=== PATIENT | female | born 1945 ===

== ENCOUNTER 2018-10-15 09:57 | Inpatient (IN) | payer OTHER ==
--- NOTE | 2018-10-15 13:10 | R.PREADM ---
SCREENING DATE AND TIME 10/15/2018 10:05 (CDT) ANTICIPATED REHAB ADMISSION DATE 10/17/2018 REFERRING FACILITY [facility] REFERRAL DATE AND TIME 10/15/2018 10:07 (CDT) ACUTE ADMIT DATE 10/12/2018 Previous Rehabilitation(s): No. 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 Abram Crews REHAB FACILITY [facility] CLINICAL LIAISON Sara Sharif PHYSICIAN REVIEWER Dr. Edmar Garrett M.D. [facility] [id number] [id number] NAME KELSEY GORDILLO ADDRESS [address] PHONE [facility] [id number] DATE OF 1945 AGE 72 SSN# [id number] GENDER female MARITAL STATUS RACE white ADMIT FROM 02 - [facility] PRE-HOSPITAL LIVING SETTING 01 - Home (private home/apt. board/care, assisted living, nursing home, transitional living) HOME TYPE AND DETAILS Type of home: mobile home # of steps to enter the residence: 0 # of steps within the residence: 0 # of levels in the residence: 1 PRE-HOSPITAL LIVING WITH Alone FAMILY SUPPORT No PRIMARY FAMILY CONTACT NAME Karli Jacobs PRIMARY FAMILY CONTACT PHONE PHONE PRIMARY FAMILY CONTACT ON ADM.? no IS PRIMARY FAMILY CONTACT AUTH. REP.? no 1ST EMERGENCY CONTACT Karli Jacobs 1ST CONTACT PHONE PHONE 1ST CONTACT ON ADM. no IS 1ST CONTACT AUTH. REP.? no PHONE 2ND CONTACT ON ADM.? no PATIENT EMPLOYMENT STATUS Retired (for age) PATIENT EMPLOYER No Employer PAYOR INFORMATION: 1ST PAYOR NAME MEDICARE 1ST PAYOR PHONE 1ST PAYOR INJURY/ILLNESS DUE TO ACCIDENT? No ANOTHER DEMOCRAT RESPONSIBLE? No PRIMARY REHAB/ACUTE DIAGNOSIS: Osteoarthritis of right hip ONSET DATE 10/12/2018 REHAB IMPAIRMENT CATEGORY (RANCHO): 08 Replacement of LE (ReplLE) does NOT meet 60% rule if unilateral and patient has mass index <50 and age <85 AFFECTED EXTREMITIES: RLE PRIMARY DIAGNOSIS-RELATED SURGERIES: Right Total Hip Arthroplasty- performed by Dr. Abram Crews on 10/12/2018 COMORBID REHAB/ACUTE DIAGNOSES: - N/A COPD CHF DIABETES HYPERTENSION INTERVENTIONS: - COPD 02 sats Medications Nebulizers Oxygen Resp. therapy X-rays - Diabetes BS's Education Glycohemoglobin Medications Podiatry - Hypertension Fluid management Medications VS RISK FOR COMPLICATIONS: - COPD Acute Resp failure Pneumonia Resp. Arrest - Diabetes DM ulcers Infection Ketoacidosis PVD neuropathy - Hypertension CVA Hypotension [place] TIA SUMMARY OF ACUTE HOSPITALIZATION: Pt. is a 72 yo Right-handed white female. She elected for surgery, and on 10/12/2018 was admitted to [facility] for Right Total Hip Arthroplasty by Dr. Abram Crews. Pt. was admitted to the hospital on 10/15/2018 and underwent Orthopaedic Disorders(Unilateral Hip Rep lacement ()) by Dr.Dr. Abram Crews without any intraoperative complications. Her impairment category is Orthopaedic Disorders 08 - Unilateral Hip Replacement (). Pre-morbidly, Pt. was independent/mod-I in Self-Care, Sphincter Control, Transfers Control, Locomotio n, Communication, and Social Cognition; and she had good Sphincter Control. Currently, she has deficits of Transfers Control, Locomotion, Communication, Social Cognition, Endura nce, Balance, Safety Awareness, and Self-Care. Pt. is now referred to [facility] for acute in-patient rehabilitation in order to maximize patient's functional independence in activities of daily living, strength, ROM, and mobi lity. Patient has realistic goal of being discharged at assistance level 6-Watson to reside at Home with Antwon ne. Kelsey Gordillo is a 72 old female that lives alone in a single jessica house. Patient was independent with ADLs and household ambulation. On 10/12/2018, her hip pain got to the point that she could not tolerate it and was admitted at [facility]. She is now medically stable but in need of 24-hour nursing, doctor supervision and oversite while receiving acti ve and ongoing intensive (PT, reasonably expected to participate in 3hours of therapy a day/15 hours per week and receive care with an intensive interdisciplinary approach. PAST MEDICAL HISTORY CHF COPD DIABETES HYPERTENSION MEDICATION ALLERGIES: No Known Drug Allergies (NKDA) ENVIRONMENTAL ALLERGIES: - Substance Allergies None Known - Other Allergies None Known CODE STATUS: DNR/DNI WEIGHT/HEIGHT/BMI: WEIGHT 146 lbs HEIGHT 5' 9" BMI 21.6 DIET: - Diet Type Regular - Diet - Solid Texture Regular - Diet - Liquid Texture Regular - Tube Feed N/A SKIN DIAGRAM: Incision on Right hip; extent - small; stage - NS(Not Stageable). Treatment - Per Physician's Orders. REVIEW OF SYSTEMS: - Gen Alert and awake Lying in bed No apparent distress Oriented to: person, time, and place - Vital Signs Vital signs stable, afebrile - CVS RRR VITAL SIGNS Temperature: 98.6 F SBP/DBP: 136/80 Pulse: 72 Resp: 20 Vital signs stable, afebrile MEDICATIONS/TREATMENT: Other- See attached MAR (Medication Administration Record). CURRENT SPHINCTER CONTROL: Pre-hospital bladder status: continent # of bladder accidents in the last 7 days prior to screenin Pre-hospital bowel status: continent # of bowel accidents in the last 7 days prior to screenin Last Bowel Movement Date: 10/15/2018 DETAILED CURRENT FUNCTIONAL STATUS: - Bladder accident frequency: Ind - No accidents in the past 7 days - Bowel accident frequency: Ind - No accidents in the past 7 days - Walking score based on distance walked: 3(>=150ft) - Wheelchair score based on distance traveled: 1(<=50ft) FUNCTIONAL STATUS: - Self-Care A. Eating Ind Ind B. Grooming Ind Ind C. Bathing Ind Ind D. Dressing - Upper Ind Ind E. Dressing - Lower Ind Hayley F. Toileting Ind Hayley - Sphincter Control G: Bladder control Ind Ind H: Bowel control Ind Ind - Transfers Control I. Bed/Chair/Wheelchair Ind Hayley J. Toilet Ind Hayley K. Tub/Shower Ind Hayley - Locomotion L. Walk/Wheelchair (C) Ind modA L. Walk/Wheelchair (W) Ind sup M. Stairs Ind ADNO - Communication N. Comprehension (B) Ind Hayley O. Expression (B) Ind Hayley - Social Cognition P. Social Interaction Ind Hayley Q. Problem Solving Ind Hayley R. Memory Ind Hayley - Endurance Poor - Balance Poor - Safety Awareness Poor CURRENT FUNC. DEFICITS: Transfers Control, Locomotion, Communication, Social Cognition, Endurance, Balance, Safety Awareness, and Self-Care THERAPY NOTES FROM ACUTE CARE: Attached. SPECIAL NEEDS: - Safety Concerns Skin breakdown precautions needed due to skin breakdown risk PRECAUTIONS: - Anterior Hip Precaution No abduction No active extension No adduction across midline No external rotation No hip flexion >90 degrees No internal rotation - Weight Bearing Precaution WBAT right LE PATIENT NEEDS ACTIVE AND ONGOING THERAPEUTIC INTERVENTION OF MULTIPLE THERAPY DISCIPLINES, INCLUDING: - Dietary and Nutrition Adequate Nutrition. Nutritional Education. Nutritional Supplements. PATIENT NEEDS CLOSE MEDICAL SUPERVISION BY A REHABILITATION PHYSICIAN FOR: Bowel and Bladder Management Coordination of Treatment Team Diabetes Management Medical and Co-Morbidity Management Post-Op Complications Wound Care PATIENT REQUIRES 24X7 REHAB NURSING FOR MEDICAL AND FUNCTIONAL MGT. OF THE FOLLOWING DEFICITS: ADL's Ambulation Bowel and Bladder Management Cognition Communication Disease Management Medication Management Patient/Family Education Providing Safe Environment Skin Integrity Transfers PATIENT REQUIRES INTENSIVE, COORDINATED INTERDISCIPLINARY APPROACH TO REHAB: Arranging Home Equipment/Services Discharge Planning Family Intervention/Training Over Short And Damage Clerk/Case Management PATIENT REHAB POTENTIAL: Tanna GORDILLO is able and expected to receive 3 hours of individualized therapy daily on at least 5 of lyudmila ry 7 days Tanna Condon prognosis for significant practical improvement within a reasonable period of time appears Good Expected level of measurable improvement will be of a practical value to Tanna GORDILLO's functional capaci ty or adaptations to impairments Has a viable Discharge Plan Medically appropriate; condition is sufficiently stable to participate in intensive rehab program DISCHARGE PLAN: - Estimated Length of Stay (days) 9. - Consensus on plan Discharge plan has been discussed with primary caregiver. Patient/Family is in agreement with the niels n. Primary caregiver is in agreement with the plan. - Patient/Family Goals Return home with assistance. - Planned Living Setting Upon Discharge Home, to live alone. RECOMMENDED CARE LEVEL: IRF RECOMMENDATION DETAILS: Recommended Admission to Comprehensive Rehabilitation Program to Increase Functional [place] SCREENER'S COMPLETENESS CONFIRMATION: - Screening Confirmation The patient data collection on this preadmission screening form is finished PHYSICIANS REVIEW AND ADMISSION DETERMINATION Admit - Based on my review of the Pre-Admission Screening results, in my medical judgment and experie nce, I concur with the findings and recommend admission to [facility], as this patient requires an IRF level of care. SIGNATURE PANEL: Clinical Liaison - [electronically] signed by Sara Sharif on 10/15/2018 at 11:39 (CDT) Physician Reviewer - [electronically] signed by Dr. Edmar Garrett M.D. on 10/15/2018 at 13:10 (CDT )
--- OUTSIDE RECORDS SUMMARY | 2018-10-15 16:12 | XMS REPORT | Encounter Summary ---
:1945 Author Care Team Providers Name Role Phone Celsa Maloney Primary Care Provider [phone] Reason for Visit Patient Returns to the Clinic following up HTN , DM ll , HLP . Instructions 1. Essential hypertension TSH, serum or plasma CBC w/ auto diff 2. Hyperlipidemia lipid panel, serum CMP, serum or plasma CBC w/ auto diff 3. Type 2 diabetes mellitus without complication microalbumin, urine HbA1c (hemoglobin A1c), blood 4. Coronary arteriosclerosis 5. Otitis externa lzcnegyp-ftwueambk-jjsawtnfa 3.5 mg-10,000 unit/mL-1 % ear drops, susp 6. Chronic depression Prozac 40 mg capsule 7. Allergic rhinitis Jaydon-Synephrine (phenylephrine) 0.5 % nasal spray Discussion Note: None recorded.Patient educational handouts: No information available. Plan of Care Reminders Provider Appointments Follow-up on or around [facility] 05/10/2018 Follow-up 05/12/2018 [facility] 3:00PM Lab TSH, 04/26/2018 [place] Serum or Plasma [facility] (Lab) CBC W/ 04/26/2018 [place] Auto Diff [facility] (Lab) Lipid 04/26/2018 [place] Panel, Serum [facility] (Lab) CMP, 04/26/2018 [place] Serum or Plasma [facility] (Lab) CBC W/ 04/26/2018 [place] Auto Diff [facility] (Lab) 04/26/2018 [place] Microalbumin, Urine [facility] HbA1C 04/26/2018 [place] (Hemoglobin a1C), [facility] [place] (Lab) Referral None recorded. Procedures None recorded. Surgeries None recorded. Imaging None recorded. Medications Name Start Date aspirin 81 mg chewable tablet Chew 1 tablet every day by oral route. buspirone 10 mg tablet carvedilol 25 mg tablet Combivent Respimat 20 mcg-100 mcg/actuation solution for inhalation Creon 12,000-38,000-60,000 unit capsule,delayed release diclofenac sodium 75 mg tablet,delayed release TAKE ONE (1) TABLET(S) BY MOUTH TWICE A DAY. digoxin 125 mcg tablet Eliquis 2.5 mg tablet furosemide 40 mg tablet gabapentin 300 mg capsule Take 1 capsule 3 times a day by oral route for 28 days. glipizide 10 mg tablet hydrocodone 10 mg-acetaminophen 325 mg tablet lisinopril 20 mg tablet Take by oral route for 90 days. meclizine 25 mg tablet methocarbamol 500 mg tablet Take 1 tablet every day by oral route. Jaydon-Synephrine (phenylephrine) 0.5 % nasal spray Take 2 sprays twice a day by nasal route as directed. adrczhwf-pvngagnzf-qjlcplecd 3.5 mg-10,000 unit/mL-1 % ear drops,susp INSTILL 4 DROPS INTO AFFECTED EAR(S) BY OTIC ROUTE 3 TIMES PER DAY nitroglycerin 0.4 mg sublingual tablet potassium chloride ER 10 mEq capsule,extended release potassium chloride ER 10 mEq tablet,extended release(part/cryst) pravastatin 20 mg tablet Prozac 40 mg capsule Take 1 capsule every day by oral route in the morning for 90 days. Medications Administered None recorded. Vitals Height Weight BMI Blood Pressure 67 in 142 lbs 3.2 oz 22.3 kg/m2 135/81 mm[Hg] Lab Results None recorded. 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 Social History Smoking Status Heavy Tobacco Smoker (1/2 PPD) Past Encounters 04/26/2018 Essential Hypertension; Hyperlipidemia; Type 2 Diabetes Mellitus without Complication; Coronary Arteriosclerosis; Otitis Externa; Chronic Depression; Allergic Rhinitis [facility]: [address] [place] [address], [address], [place] [address], Ph. History of Present Illness Care Management - Coronary Artery Disease (CAD) Reported By: Patient HPI: Self Care: recent hospitalization/ER visit? no, blood pressure goal: <130/80. Associated Symptoms: no chest pain, no shortness of breath, no left arm pain, no back pain, no neck pain, no left shoulder pain, no right shoulder pain, no numbness, no sweats Diabetes F/U Reported By: Patient HPI: Context: normal range of home blood sugars (in the low 100s), seeing eye doctor regularly, checking feet regularly, taking aspirin daily, not missing doses of medications, no side effects from medications. Associated Symptoms: no dizziness, no sweats, no headaches, no confusion, no increased thirst, no increased appetite, no increased urination, no blurred vision, no numbness of feet, no calluses on feet Anxiety/Depression Reported By: Patient HPI: Quality: symptoms improved. Severity: denies suicidal ideations, able to maintain relationships, does not interfere with activities of daily living. Duration: stablizing. Context: no major life stressors. Modifying Factors: medications as directed Care Management - Hypertension Reported By: Patient Care Management - Hyperlipidemia Reported By: Patient Note: New Patient here for continuity of care she c/o chronic runny nose and right ear pain . PMH: HTN, HLD , DMll , CAD , Chronic Depression . Review of Systems General Adult ROS Reported By: Patient Constitutional: Constitutional: no fever, no night sweats, no significant weight gain, no significant weight loss, exercise intolerance Eyes: Eyes: no dry eyes, no irritation, no vision change ENMT: Ears: ear pain. Nose: nose/sinus problems. Mouth/Throat: Post Nasal Dripping Cardiovascular: Cardiovascular: no chest pain, no arm pain on exertion, no shortness of breath when walking, no shortness of breath when lying down, no palpitations, no known heart murmur Respiratory: Respiratory: no cough, no wheezing, no shortness of breath, no coughing up blood Gastrointestinal: Gastrointestinal: no abdominal pain, no vomiting, normal appetite, no diarrhea, not vomiting blood Musculoskeletal: Musculoskeletal: no muscle aches, no muscle weakness, no arthralgias/joint pain, no back pain, no swelling in the extremities Integumentary: Skin: no abnormal mole, no jaundice, no rashes Neurologic: Neurologic: no loss of consciousness, no seizures, no dizziness, no headaches, weakness Psychiatric: Psych: no depression, feeling safe in relationship, no alcohol abuse Endocrine: Endocrine: no fatigue Hematologic/Lymphatic: Hematologic/Lymphatic no swollen glands, no bruising Allergic/Immunologic: Allergy/Immunologic: runny nose Physical Exam General Adult Exam - Female Reported By: Patient Constitutional: General Appearance: healthy-appearing, well-nourished, well-developed. Level of Distress: NAD. Ambulation: ambulation with cane Psychiatric: Insight: good judgement. Mental Status: active and alert, normal mood, normal affect. Orientation: to time, to place, to person. Memory: recent memory normal, remote memory normal Head: Head: normocephalic, atraumatic Eyes: Lids and Conjunctivae: non-injected, no discharge, no pallor. Pupils: PERRLA. Corneas: grossly intact. EOM: EOMI. Lens: clear. Sclerae: non-icteric. Vision: acuity grossly intact ENMT: Ears: ; red irritated right external ear canal. Hearing: no hearing loss. Nose: nasal discharge--rhinorrhea, post nasal drip. Lips, Teeth, and Gums: poor dentition. Oropharynx: moist mucous membranes, no erythema, no exudates, tonsils not enlarged Neck: Neck: supple, trachea midline, no masses, FROM, no carotid bruits. Lymph Nodes: no cervical LAD. Thyroid: no enlargement, non-tender, no nodules Lungs: Respiratory effort: no dyspnea. Percussion: no dullness, flatness, or hyperresonance. Auscultation: breath sounds normal, good air movement, CTA except as noted, no wheezing, no rales/crackles, no rhonchi Cardiovascular: Apical Impulse: not displaced. Heart Auscultation: RRR, normal S1, normal S2, no murmurs, no rubs, no gallops. Neck vessels: no carotid bruits. Pulses including femoral / pedal: normal throughout Abdomen: Bowel Sounds: normal. Inspection and Palpation: soft, non-distended, no tenderness, no guarding, no rebound tenderness, no masses, no CVA tenderness. Liver: non-tender, no hepatomegaly. Spleen: non-tender, no splenomegaly. Hernia: none palpable Musculoskeletal:: Motor Strength and Tone: abnormal motor strength, hypotonicity. Joints, Bones, and Muscles: normal movement of all extremities, no bony abnormalities, no contractures, no malalignment, no tenderness. Extremities: no cyanosis, no edema, no varicosities, no palpable cord Neurologic: Gait and Station: normal gait, normal station; with cane assist. Cranial Nerves: grossly intact. Sensation: grossly intact Skin: Inspection and palpation: decreased turgor
--- OUTSIDE RECORDS SUMMARY | 2018-10-15 16:12 | XMS REPORT | Continuity of Care Document ---
:1945 Author Organization [facility] Address [address] [place] [address] Phone Unavailable Care Team Providers Name Role Phone DEO SOLITARIO Primary Care Physician Insurance Providers Guarantor Kelsey Gordillo Address [address] [place] [address] Email NO EMAIL Payer Medicare Policy Number [id number] Subscriber's Name Kelsey Gordillo Relationship Self / Same As Patient Group Number NA Group Name NA Effective Date 07 Payer Medicaid Policy Number [id number] Subscriber's Name Kelsey Gordillo Relationship Self / Same As Patient Group Number NA Group Name NA Advance Directives Directive Response Recorded Date/Time Advance Directives No 10/01/15 10:34am Advance Directive on File Yes 11/30/17 11:04am Directive to Physicians/Living Will No 10/01/15 10:34am Health Care Proxy No 10/01/15 10:34am Organ Donor No 10/01/15 10:34am Medical Power of Manager Architectural No 10/01/15 10:34am Patient/Family Given Education Material R/T Y - 11/30/17...PS 11/30/17 1: 06pm Directives? Chief Complaint and Reason for Visit Chief Complaint Extremity Pain/Injury Reason for Visit Degenerative arthritis Chronic left shoulder pain [id number] Contusion of left elbow, initial encounter Problems Medical Problem Onset Date Status Chest pain, rule out acute myocardial infarction Unknown Acute Hypomagnesemia Unknown Acute Left against medical advice Unknown Acute Left shoulder strain Unknown Acute Sebaceous cyst Unknown URI (upper respiratory infection) Unknown Acute Weakness Unknown Acute Past Problems Medical Problem Onset Date Status Abrasion of left forearm, initial encounter Unknown Acute Altered mental status Unknown Resolved Arthralgia of shoulder region, left Unknown Acute Bronchitis Unknown Acute COPD exacerbation Unknown Acute Chronic left shoulder pain Unknown Acute Contusion of left elbow, initial encounter Unknown Acute Contusion of left upper extremity Unknown Acute Degenerative arthritis Unknown Acute Digoxin toxicity Unknown Acute Dizziness Unknown Resolved Fall with injury Unknown Acute Nasal congestion Unknown Acute Orthostatic hypotension Unknown Acute Otitis media with effusion Unknown Acute Pain in left elbow Unknown Acute Weakness generalized Unknown Resolved Medications Current Home Medications Medication Dose Units Route Directions Days Qty Instructions Start Date Aspirin (Aspirin 1 Tab ORAL Daily 30 Tablet *) 81 Mg Tab Bupropion Hcl 1 Tab ORAL Twice A Day (Bupropion Hcl Sr*) 100 Mg Tab Buspirone Hcl 10 Mg ORAL Twice A Day (Buspar *) 10 Mg Tab Carvedilol (Coreg 25 Mg ORAL Twice A Day *) 25 Mg Tab Cyanocobalamin 50 Mcg ORAL Once Daily (Vitamin B12 100 Mcg) 100 Mcg Tab Digoxin (Digox) 1 Tab ORAL Daily for 30 Tablet 01/30/17 125 Mcg Tab Afib Fluoxetine Hcl 40 Mg ORAL Daily (Prozac 40 Mg *) 40 Mg Cap Furosemide (Lasix 40 Mg ORAL Daily 20 Mg) 20 Mg Tab Glipizide 1 Tab ORAL Twice Daily (Glucotrol 10 Before Meals Mg*) 10 Mg Tab Hydrocodone-Acetam 1 Tab ORAL Q 8 Hrs Prn inophen 10/325MG* (Morley 10/325 Mg *) 1 Tab Tab Ibuprofen-Famotidi 1 Tab ORAL Once Daily 90 Tablet ne (Duexis 800/26.6 Mg) 1 Tab Tab Lisinopril 20 Mg ORAL Daily (Prinivil 20 Mg*) 20 Mg Tab Meclizine Hcl 1 Tab ORAL Three Times A 30 Days 90 Tablet (Meclizine Hcl 25 Day Mg) 25 Mg Tab Methocarbamol 1 Tab ORAL Twice A Day 60 Tablet (Robaxin 500 Mg*) as needed for 500 Mg Tab Muscle Spasms Multiple Vitamins 1 Tab ORAL Once Daily W/ Minerals * (Womens Multi *) Multi Cap Pancrelipase 2 Cap ORAL Three Times A (Lipase-Protease- Day (Creon 12,000 Unt) 12,000 Unt Cap Potassium Chloride 20 Meq ORAL Daily (Klor-Con *) 10 Meq Tab Pravastatin * 20 Mg ORAL Daily (Pravachol 20 Mg*) 20 Mg Tab Past Home Medications Medication Directions Ordered Status Apixaban * (Eliquis *) 2.5 Mg Tab, Once Daily Discontinued 2.5 Mg Oral Aspirin (Asa 325 Mg*) 325 Mg Tab, Daily Discontinued 325 Mg Oral Benazepril Hcl (Lotensin 10 Mg*) 10 Daily Discontinued Mg Tab, Unknown Dose Oral Cyclobenzaprine Hcl (Flexeril *) 10 Bedtime as needed for Muscle Discontinued Mg Tab, 10 Mg Oral Spasms Digoxin (Lanoxin 0.25 Mg*) 0.25 Mg Daily Discontinued Tab, 250 Mcg Oral Gabapentin (Gabapentin 300 Mg Three Times A Day Discontinued (Neurontin) *) 300 Mg Cap, 300 Mg Oral Gemfibrozil (Lopid *) 600 Mg Tab, 1 Twice A Day Discontinued Tab Oral Ibuprofen (Ibuprofen 200 Mg *) 200 As Needed as needed for Pain Discontinued Mg Cap, 2 Tab Oral Lisinopril (Prinivil 10 Mg*) 10 Mg Daily Discontinued Tab, 10 Mg Oral Metoprolol Tartrate (Lopressor *) Daily Discontinued 50 Mg Tab, 50 Mg Oral Pancrelipase (Lipase-Protease- Three Times A Day Discontinued (Creon 3,000 Unt) 3,000 Unit Cap, Oral Potassium Gluconate (Potassium *) Daily Discontinued 99 Mg Tab, 99 Mg Oral Warfarin * (Coumadin 5 Mg *) 5 Mg Daily Discontinued Tab, 5 Mg Oral Zolpidem Tartrate (Ambien*) 10 Mg Once Daily At Bedtime Discontinued Tab, 10 Mg Oral Social History Social History Response Recorded Date/Time Onset Date Status Problem Hx Alcohol Use No 10/20/2017 10:04am Not Applicable Not Applicable Hx Physical Abuse No 11/30/2017 11:04am Not Applicable Not Applicable 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 Plan of Care Discharge Date 11/30/17 1:40pm Instructions/Education Provided Shoulder Pain Contusion, [id number]-[id number] Arthritis Prescriptions See Medication Section Referrals DEO SOLITARIO Address: [address] [place] [id number] Additional Instructions/Education CONTINUE YOUR PAIN CLINIC CARE. SEE YOUR PCP or SEE ORTHOPEDIC DOCTOR (DR TRIMBLE) WITHIN 2-3 DAYS FOR WORSENING DEGENERATIVE ARTHRITIS IN LEFT SHOULDER, WITH POSSIBILITY OF SHOULDER JOINT NECROSIS. The humeral head is irregularly marginated with increased sclerosis, suggesting possible aseptic necrosis. Functional Status No functional status information available. Allergies, Adverse Reactions, Alerts Allergen Type Severity Reaction Status Last Updated Sulfacetamide ([id number]) Allergy Severe Active 05/01/15 Sulfamethoxazole w/Trimethoprim Allergy Severe Active 05/01/15 ([id number]) Immunizations No immunization information available. Vital Signs Acute Vital Signs Vital Response Date/Time Blood Pressure 129/74 mm Hg 11/30/2017 1:46pm Pulse Pulse Rate (adult) 66 beats per minute (60 - 100) 11/30/2017 1:46pm Respiratory Rate 18 breaths per minute (10 - 24) 11/30/2017 1:46pm Temperature Source Oral 11/30/2017 1:46pm Height 5 ft 6 in 11/30/2017 11:04am Weight 141.13 lb 11/30/2017 11:04am Body Mass Index 22.8 kg/m^2 11/30/2017 11:04am Results Laboratory Results Test Name Result Units Flags Reference Collection Result Comments Date/Time Date/Time POC Capillary 126 mg/dL H 70.0 - 110 10/20/2017 10/20/2017 Blood Glucose 10:19am 10:20am (Chem) Venous Blood SENT TO 11/17/2017 11/17/2017 TESTING Collection [facility] 10:09am 10:10am PERFORMED AT [facility]. Procedures Procedure Status Date Provider(s) NJX INTERLAMINAR LMBR/SAC Completed 10/06/17 JAMAAL BARLOW MD INJECTION, METHYLPREDNISOLONE ACETATE 80MG Completed 10/06/17 INJ,PROPOFOL 10MG Completed 10/06/17 OVINE INJECT UP TO 999 [facility] UNIT Completed 10/06/17 INJ FORAMEN EPIDURAL L/S Completed 10/20/17 JAMAAL BARLOW MD ASSAY GLUCOSE BLOOD QUANT Completed 10/20/17 ROUTINE VENIPUNCTURE Completed 10/20/17 INJ,PROPOFOL 10MG Completed 10/20/17 OVINE INJECT UP TO 999 [facility] UNIT Completed 10/20/17 X-RAY EXAM HIP UNI 2-3 VIEWS Completed 10/22/17 XR fluoro portable intraoperative Active 10/06/17 JAMAAL BARLOW MD XR fluoro portable intraoperative Active 10/20/17 JAMAAL BARLOW MD X-ray of left shoulder, two views Completed 11/30/17 SKYLER WHITE MD X-ray of left elbow, two views Completed 11/30/17 SKYLER WHITE MD Encounters Encounter Location Arrival/Admit Date Discharge/Depart Date Attending Provider Departed [place] 11/30/17 10:49am 11/30/17 1:40pm SKYLER WHITE MD Emergency [facility] Registered [place] 11/17/17 10:08am DEO SOLITARIO [facility] Registered [place] 10/22/17 11:53am [facility] Registered [place] 10/20/17 9:42am JAMAAL BARLOW Surgical Day [facility] Registered [place] 10/06/17 10:26am JAMAAL BARLOW Surgical [facility] Recent Diagnosis
--- OUTSIDE RECORDS SUMMARY | 2018-10-15 16:12 | XMS REPORT | Encounter Summary ---
:1945 Author Care Team Providers Name Role Phone Celsa Maloney Primary Care Provider [phone] Reason for Visit Follow Up Results; Right ear problem Instructions 1. Otitis media Zithromax Z-Bobby 250 mg tablet 2. Chronic thoracic back pain Medrol (Bobby) 4 mg tablets in a dose pack Depo-Medrol 40 mg/mL suspension for injection Discussion Note Increase fluids and rest much as possible Patient educational handouts: No information available. Plan of Care Reminders Provider Appointments Any 06/30/2018 NIKOLAS Grimm 3:00PM Lab None recorded. Referral None recorded. Procedures None recorded. Surgeries None recorded. Imaging None recorded. Medications Name Start Date aspirin 81 mg chewable tablet Chew 1 tablet every day by oral route. buspirone 10 mg tablet carvedilol 25 mg tablet Combivent Respimat 20 mcg-100 mcg/actuation solution for inhalation Creon 12,000-38,000-60,000 unit capsule,delayed release Depo-Medrol 40 mg/mL suspension for injection Take 40 mg by injection route as directed. diclofenac sodium 75 mg tablet,delayed release TAKE ONE (1) TABLET(S) BY MOUTH TWICE A DAY. digoxin 125 mcg tablet Eliquis 2.5 mg tablet fenofibrate nanocrystallized 145 mg tablet Take 1 tablet every day by oral route in the morning. fluoxetine 40 mg capsule Take 1 capsule every day by oral route in the morning for 90 days. furosemide 40 mg tablet gabapentin 300 mg capsule Take 1 capsule 3 times a day by oral route for 28 days. glipizide 10 mg tablet hydrocodone 10 mg-acetaminophen 325 mg tablet lisinopril 20 mg tablet Take by oral route for 90 days. meclizine 25 mg tablet Medrol (Bobby) 4 mg tablets in a dose pack Take 1 dose pk every day by oral route as directed. methocarbamol 500 mg tablet Take 1 tablet every day by oral route. hunndhkn-srkrmtebc-ssxquheiu 3.5 mg-10,000 unit/mL-1 % ear drops,susp INSTILL 4 DROPS INTO AFFECTED EAR(S) BY OTIC ROUTE 3 TIMES PER DAY nitroglycerin 0.4 mg sublingual tablet potassium chloride ER 10 mEq capsule,extended release potassium chloride ER 10 mEq tablet,extended release(part/cryst) pravastatin 20 mg tablet Zithromax Z-Bobby 250 mg tablet TAKE 2 TABLETS (500 MG) BY ORAL ROUTE ONCE DAILY FOR 1 DAY THEN 1 TABLET (250 MG) BY ORAL ROUTE ONCE DAILY FOR 4 DAYS Medications Administered Name Date Depo-Medrol 40 mg/mL suspension for injection [id number]:00 Take 40 mg by injection route as directed. Vitals Height Weight BMI Blood Pressure 67 in 143 lbs 22.4 kg/m2 120/86 mm[Hg] Lab Results Date Name Specimen Result Interpretation Description Value Range Status Address 04/26/2018 Hemoglobin Normal Hemoglobin a1C 5.9 4.0-6.0 Final [place] a1C, QN, Blood % % [facility] (Lab): [address] [place] [address] 04/26/2018 TSH, Serum or Normal Thyroid 1.24 0.36-3.7 Final [place] Plasma Stimulating uIU/ 4 uIU/mL [facility] (Lab): [address] [place] [address] 04/26/2018 CBC W/ Auto Normal White Blood 9.2 4.0-11.5 Final [place] Diff Count K/uL K/uL [facility] (Lab): [address] [place] [address] Normal Red Blood 4.19 3.80-5.2 Final [place] Count M/uL 0 M/uL [facility] (Lab): [address] [place] [address] Normal Hemoglobin 13.5 10.5-15. Final [place] g/dL 7 g/dL [facility] (Lab): [address] [place] [address] Normal Hematocrit 41.0 34.0-50. Final [place] % 0 % [facility] (Lab): [address] [place] [address] Normal Mean 97.8 78-98 fL Final [place] Corpuscular fL [facility] (Lab): [address] [place] [address] Normal Mean 32.2 26.2-33. Final [place] Corpuscular pg 4 pg [facility] (Lab): [address] [place] [address] Normal Mean 32.9 31.5-36. Final [place] Corpuscular HGB g/dL 2 g/dL [facility] (Lab): [address] [place] [address] Normal Red Cell 12.6 11.5-15. Final [place] Distribution % 5 % [facility] (Lab): [address] [place] [address] Normal Platelet Count 160 137-338 Final [place] K/uL K/uL [facility] (Lab): [address] [place] [address] Normal Mean Platelet 8.4 8.4-11.8 Final [place] Volume fL fL [facility] (Lab): [address] [place] [address] Normal Neutrophils % 57.2 44.4-80. Corrected [place] % 1 % [facility] (Lab): [address] [place] [address] Normal Lymphocyte% 30.4 10.0-50. Final [place] % 0 % [facility] (Lab): [address] [place] [address] Normal Cottle % 8.6 3.6-12.0 Final [place] % 4 % [facility] (Lab): [address] [place] [address] Normal Eos % 2.6 0.0-5.41 Final [place] % % [facility] (Lab): [address] [place] [address] High Basophil % 1.2 0.0-0.79 Final [place] % % [facility] (Lab): [address] [place] [address] 04/26/2018 Differential Normal Neutrophils Incomplete [place] Panel, Blood [facility] (Lab): [address] [place] [address] Normal Band Incomplete [facility] (Lab): [address] [place] [address] Normal Lymphocyte Incomplete [facility] (Lab): [address] [place] [address] Normal Atypical Lymph Incomplete [facility] (Lab): [address] [place] [address] Normal Monocyte Incomplete [facility] (Lab): [address] [place] [address] Normal Eosinophil Incomplete [facility] (Lab): [address] [place] [address] Normal Basophil Incomplete [facility] (Lab): [address] [place] [address] Normal Metamyelocyte Incomplete [facility] (Lab): [address] [place] [address] Normal Platelet Incomplete [place] Estimate [facility] (Lab): [address] [place] [address] Normal Platelet Incomplete [place] Morphology [facility] (Lab): [address] [place] [address] Normal Poikilocytosis [facility] (Lab): [address] [place] [address] Normal Anisocytosis [facility] (Lab): [address] [place] [address] Normal Target Cells [facility] (Lab): [address] [place] [address] Normal Toxic Incomplete [place] Granulation [facility] (Lab): [address] [place] [address] Normal Stearns Cells [facility] (Lab): [address] [place] [address] Normal Acanthocytes [facility] (Lab): [address] [place] [address] Normal Hypersegmented [facility] (Lab): [address] [place] [address] 04/26/2018 CMP, Serum or Normal Glucose 93 82-115 Final [place] Plasma mg/d mg/dL [facility] (Lab): [address] [place] [address] Normal Blood Urea 20 8-23 Final [place] Nitrogen mg/d mg/dL [facility] (Lab): [address] [place] [address] Normal Osmolality 282 280-300 Final [place] Calculated, [facility] (Lab): [address] [place] [address] Normal Creatinine 0.7 0.50-0.9 Final [place] mg/d 0 mg/dL [facility] (Lab): [address] [place] [address] Normal Glomerular >60. Final [place] Filtration Rate 00 [facility] (Lab): [address] [place] [address] High BUN/creatinine 28.6 12-20 Final [place] Ratio [facility] (Lab): [address] [place] [address] Normal Sodium Level 140 135-145 Final [place] mmol mmol/L [facility] (Lab): [address] [place] [address] Normal Potassium 4.5 3.5-5.2 Final [place] Level mmol mmol/L [facility] (Lab): [address] [place] [address] Normal Chloride Level 99 98-108 Final [place] mmol mmol/L [facility] (Lab): [address] [place] [address] Normal Co2 29 21-32 Final [place] mmol mmol/L [facility] (Lab): [address] [place] [address] Normal Anion Gap 16.5 12-20 Final [place] mEq/ mEq/L [facility] (Lab): [address] [place] [address] Normal Calcium Level 9.7 8.8-10.2 Final [place] mg/d mg/dL [facility] (Lab): [address] [place] [address] Normal Total Protein 7.3 6.6-8.7 Final [place] g/dL g/dL [facility] (Lab): [address] [place] [address] Normal Albumin 4.4 3.5-5.2 Final [place] g/dL g/dL [facility] (Lab): [address] [place] [address] Normal Globulin 2.9 Final [place] gm/d [facility] (Lab): [address] [place] [address] Normal A/g Ratio 1.5 >1.0 Final [place] [facility] (Lab): [address] [place] [address] Normal Bilirubin,tota <0.3 0.0-1.2 Final [place] l mg/d mg/dL [facility] (Lab): [address] [place] [address] Normal AST/SGOT 27 15-32 Final [place] U/L U/L [facility] (Lab): [address] [place] [address] High ALT/SGPT 36 0-33 U/L Final [place] U/L [facility] (Lab): [address] [place] [address] Normal Alkaline 81 35-105 Final [place] Phosphatase, U/L U/L [facility] (Lab): [address] [place] [address] 04/26/2018 Lipid Panel, Normal Cholesterol 193 150-200 Final [place] Serum Level mg/d mg/dL [facility] (Lab): [address] [place] [address] High Triglycerides 504 <150 Final [place] Level mg/d mg/dL [facility] (Lab): [address] [place] [address] Low HDL 33 >65 Final [place] Cholesterol mg/d mg/dL [facility] (Lab): [address] [place] [address] High LDL 109 <100 Final [place] Cholesterol mg/d mg/dL [facility] (Lab): [address] [place] [address] Normal Cholesterol 5.84 Final [place] Risk Ratio 8 [facility] (Lab): [address] [place] [address] 04/26/2018 Microalbumin, Normal Microalbumin <12. 0-20 Final [place] Urine Random 0 [facility]L [facility] (Lab): [address] [place] [address] Allergies Code Code System Name Reaction Severity Status Onset [id number] RxNorm Bactrim Rash Moderate to Active Severe [...] Heavy Tobacco Smoker (1/2 PPD) Past Encounters 05/12/2018 Otitis Media; Chronic Thoracic Back Pain NIKOLAS Grimm: [address] [facility], [address], [place] [address], Ph. 04/26/2018 Essential Hypertension; Hyperlipidemia; Type 2 Diabetes Mellitus without Complication; Coronary Arteriosclerosis; Otitis Externa; Chronic Depression; Allergic Rhinitis NIKOLAS Grimm: [address] [facility], [address], [place] [address], Ph. History of Present Illness Musculoskeletal Pain Reported By: Patient HPI: Location: bilateral neck, bilateral shoulder, thoracic spine, lumbar spine. Quality: dull. Severity: worsening, interference with sleep, interference with work. Duration: present for >12 months. Timing: intermittent, pain at night. Context: overuse, unusual activity, prior back problems, used medication for back pain, had evaluations by back specialist, previous epidural. Alleviating factors: rest. Aggravating factors: movement/positioning, bending over, twisting. Associated Symptoms: no fever, no weak limbs, no tingling, no numbness of the legs/feet, on incontinence. ADL (Activities of Daily Living) improve with medication Upper Respiratory Symptoms Reported By: Patient Upper Respiratory Symptoms: Location: head. Quality: productive cough, colored phlegm, congested, wheezy cough. Severity: moderate. Duration: symptoms lasting over 2 weeks. Onset/Timing: gradual. Associated Symptoms: yellow sputum, shortness of breath, wheezing, fatigue, morning cough Note: right ear still feels stopped up , requesting steroid pack for chronic back pain until she can follow up with her pain management doctor . Review of Systems General Adult ROS Reported By: Patient Constitutional: Constitutional: no fever, no night sweats, no significant weight gain, no significant weight loss, exercise intolerance ENMT: Ears: difficulty hearing, ear pain; right ear. Nose: no frequent nosebleeds, nose/sinus problems. Mouth/Throat: no sore throat, no snoring, no dry mouth, no mouth ulcers, no oral abnormalities, No Post Nasal Dripping, Constantly clearing the throat, hiccups, itching throat, (normal) weak voice: constant, Post Nasal Dripping Cardiovascular: Cardiovascular: no chest pain, no arm pain on exertion, no shortness of breath when walking, no shortness of breath when lying down, no palpitations, no known heart murmur Respiratory: Respiratory: cough, wheezing, shortness of breath Gastrointestinal: Gastrointestinal: no abdominal pain, no vomiting, normal appetite, no diarrhea, not vomiting blood Musculoskeletal: Musculoskeletal: no muscle weakness, no swelling in the extremities, muscle aches, arthralgias/joint pain, back pain Integumentary: Skin: no abnormal mole, no jaundice, no rashes Neurologic: Neurologic: no loss of consciousness, no weakness, no numbness, no seizures, no dizziness, no headaches Psychiatric: Psych: no depression, feeling safe in relationship, no alcohol abuse Endocrine: Endocrine: no fatigue Hematologic/Lymphatic: Hematologic/Lymphatic no swollen glands, no bruising Allergic/Immunologic: Allergy/Immunologic: no itching, no hives, no frequent sneezing, runny nose, sinus pressure Physical Exam General Adult Exam - Female Reported By: Patient Constitutional: General Appearance: healthy-appearing, well-nourished, well-developed. Level of Distress: NAD. Ambulation: ambulating normally Head: Head: normocephalic, atraumatic Eyes: Lids and Conjunctivae: non-injected, no discharge, no pallor. Pupils: PERRLA. Corneas: grossly intact. Fundoscopic: grossly normal except where noted, normal optic discs, normal vessels, no exudates, no hemorrhages. EOM: EOMI. Lens: clear. Sclerae: non-icteric. Vision: peripheral vision grossly intact, acuity grossly intact ENMT: Ears: TM erythematous, TM bulging, middle ear fluid. Hearing: hearing decreased. Nose: nasal discharge. Lips, Teeth, and Gums: edentulous. Oropharynx: moist mucous membranes, no erythema, no exudates, tonsils not enlarged Neck: Neck: supple, trachea midline, no masses, FROM, no carotid bruits. Lymph Nodes: no cervical LAD, no supraclavicular LAD, no axillary LAD, no inguinal LAD. Thyroid: no enlargement, non-tender, no nodules Lungs: Respiratory effort: no dyspnea. Percussion: hyperresonance. Auscultation: breath sounds normal, no wheezing, no rales/crackles, no rhonchi, diminished air movement Cardiovascular: Apical Impulse: not displaced. Heart Auscultation: RRR, normal S1, normal S2, no murmurs, no rubs, no gallops. Neck vessels: no carotid bruits. Pulses including femoral / pedal: normal throughout Musculoskeletal:: Motor Strength and Tone: abnormal motor strength, hypotonicity; senile debility. Joints, Bones, and Muscles: limited ROM, bony deformity, tenderness. Extremities: no cyanosis, no edema, no varicosities, no palpable cord Back: Thoracolumbar Appearance: scoliosis
--- OUTSIDE RECORDS SUMMARY | 2018-10-15 16:12 | XMS REPORT | Continuity of Care Document ---
:1945 Author Organization [facility] Address [address] [place] [address] Phone Unavailable Care Team Providers Name Role Phone DEO SOLITARIO Primary Care Physician Insurance Providers Guarantor Kelsey Gordillo Address [address] [place] [address] Email NO EMAIL Payer Medicare Policy Number [id number] Subscriber's Name Kelsey Gordillo Relationship Self / Same As Patient Group Number NA Group Name NA Effective Date 07 Payer Medicaid Policy Number [id number] Subscriber's Name Kelsey Gordillo Relationship Self / Same As Patient Group Number NA Group Name NA Advance Directives Directive Response Recorded Date/Time Advance Directives No 10/01/15 10:34am Advance Directive on File Yes 03/13/18 10:25am Directive to Physicians/Living Will No 10/01/15 10:34am Health Care Proxy No 10/01/15 10:34am Organ Donor No 10/01/15 10:34am Medical Power of Pharmaceutical Process Engineer No 10/01/15 10:34am Patient/Family Given Education Material R/T Y - KR...03/13/18 03/13/18 10: 59am Directives? Chief Complaint and Reason for Visit Chief Complaint Dyspnea/Respdistress Reason for Visit URI (upper respiratory infection) CHF exacerbation Problems Medical Problem Onset Date Status Chest [...] region, left Unknown Acute Bronchitis Unknown Acute CHF exacerbation Unknown Acute COPD exacerbation Unknown Acute Chronic [...] 30 Tablet 01/30/17 125 Mcg Tab Afib Doxycycline 1 Tab ORAL Twice A Day 7 Days 14 Tablet 03/13/18 Hyclate for Infection (Doxycycline*) 100 Mg Tab Fluoxetine Hcl 40 Mg ORAL Daily (Prozac 40 Mg *) 40 Mg Cap Furosemide (Lasix 40 Mg ORAL Daily 20 Mg) 20 Mg Tab Glipizide 1 Tab ORAL Twice Daily (Glucotrol 10 Before Meals Mg*) 10 Mg Tab Hydrocodone-Acetam 1 Tab ORAL Q 8 Hrs Prn inophen 10/325MG* ([place] 10/325 Mg *) 1 Tab Tab Ibuprofen-Famotidi [...] Twice A Day Discontinued Tab Oral Ibuprofen (Motrin *) 200 Mg Cap, 2 As Needed as needed for Pain Discontinued Tab Oral Lisinopril (Prinivil 10 Mg*) 10 [...] Applicable Not Applicable Hx Physical Abuse No 03/13/2018 10:25am Not Applicable Not Applicable 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 Plan of Care Discharge Date 03/13/18 1:03pm Instructions/Education Provided Upper Respiratory Infection, Adult Heart Failure Forms Provided Portal Welcome Letter Prescriptions See Medication Section Referrals DEO SOLITARIO Address: [address] [place] [address] Additional Instructions/Education CONTINUE ALL HOME MEDICATIONS PRESCRIBED. TAKE DOXYCYCLINE 100MG CAP 1 BY MOUTH TWICE A DAY X 7 DAYS. USE TYLENOL OR MOTRIN DIRECTED FOR PAIN/FEVER. FOLLOW UP WITH YOUR PRIMARY CARE PROVIDER IN 2-3 DAYS RETURN TO THE ER IF YOUR SYMPTOMS WORSEN. Functional Status No functional status information available. Allergies, Adverse Reactions, Alerts Allergen Type Severity Reaction Status Last Updated Sulfacetamide ([id number]) Allergy Severe Active 05/01/15 Sulfamethoxazole w/Trimethoprim Allergy Severe Active 05/01/15 ([id number]) Immunizations No immunization information available. Vital Signs Acute Vital Signs Vital Response Date/Time Blood Pressure 145/68 mm Hg 03/13/2018 1:14pm Pulse Pulse Rate (adult) 56 beats per minute (60 - 100) 03/13/2018 1:14pm Respiratory Rate 20 breaths per minute (10 - 24) 03/13/2018 1:14pm Temperature Source Oral 03/13/2018 10:25am Height 5 ft 6 in 03/13/2018 10:25am Weight 148 lb 03/13/2018 10:25am Body Mass Index 23.9 kg/m^2 03/13/2018 10:25am Results Laboratory Results Test Name Result Units Flags Reference Collection Result Comments Date/Time Date/Time White Blood Count 10.3 K/ul 4.0-11.5 03/13/2018 03/13/2018 10:49am 10:59am Red Blood Count 4.39 M/ul 3.80-5.20 03/13/2018 03/13/2018 10:49am 10:59am Hemoglobin 13.8 g/dl 10.5-15.7 03/13/2018 03/13/2018 10:49am 10:59am Hematocrit 42.4 % 34.0-50.0 03/13/2018 03/13/2018 10:49am 10:59am Mean Corpuscular 96.7 fl 78-98 03/13/2018 03/13/2018 Volume 10:49am 10:59am Mean Corpuscular 31.5 pg 26.2-33.4 03/13/2018 03/13/2018 Hemoglobin 10:49am 10:59am Mean Corpuscular 32.6 g/dl 31.5-36.2 03/13/2018 03/13/2018 Hemoglobin Concent 10:49am 10:59am Red Cell 11.7 % 11.5-15.5 03/13/2018 03/13/2018 Distribution Width 10:49am 10:59am Platelet Count 145 K/ul 137-338 03/13/2018 03/13/2018 10:49am 10:59am Mean Platelet 8.2 fl L 8.4-11.8 03/13/2018 03/13/2018 Volume 10:49am 10:59am Neutrophils (%) 79.9 % 44.4-80.1 03/13/2018 03/13/2018 (Auto) 10:49am 10:59am Lymphocytes (%) 11.9 % 10.0-50.0 03/13/2018 03/13/2018 (Auto) 10:49am 10:59am Monocytes (%) 6.7 % 3.6-12.04 03/13/2018 03/13/2018 (Auto) 10:49am 10:59am Eosinophils (%) 0.8 % 0.0-5.41 03/13/2018 03/13/2018 (Auto) 10:49am 10:59am Basophils (%) 0.8 % H 0.0-0.79 03/13/2018 03/13/2018 (Auto) 10:49am 10:59am Prothrombin Time 10.7 SECONDS 10.3-12.3 03/13/2018 03/13/2018 10:49am 11:10am THERAPEUTIC LEVEL: 1.5 to 1.9 times normal range of PT Prothromb Time 0.97 03/13/2018 03/13/2018 International 10:49am 11:10am Recommended therapeutic range for patients receiving Ratio warfarin (coumadin) therapy: INR is 2.0 to 3.0 Recommended range for patients with mechanical prosthetic heart valves: INR is 2.5 to 3.5 Activated Partial 29.1 SECONDS 22.5-37.0 03/13/2018 03/13/2018 Thromboplast Time 10:49am 11:10am Random Glucose 117 mg/dL H 82-115 03/13/2018 03/13/2018 10:49am 11:11am Blood Urea 19 mg/dL 8-23 03/13/2018 03/13/2018 Nitrogen 10:49am 11:11am Serum Osmolality 285 280-300 03/13/2018 03/13/2018 10:49am 11:11am Creatinine 0.7 mg/dL 0.50-0.90 03/13/2018 03/13/2018 10:49am 11:11am Glomerular > 60.00 03/13/2018 03/13/2018 GFR RESULTS ARE REPORTED IN mL/min/1.73m2. Filtration Rate 10:49am 11:11am Calc Normal GFR: >60mL/min Moderately decreased GFR: 30-59 mL/min Severely decreased GFR: 15-29 mL/min Kidney Failure (or Dialysis): <15 mL/min The calculated eGFR is not valid for patients younger than 18 years or older than 75 years. BUN/Creatinine 27.1 H 12-03/13/2018 03/13/2018 Ratio 10:49am 11:11am Sodium Level 141 mmol/L 135-145 03/13/2018 03/13/2018 10:49am 11:11am Potassium Level 5.0 mmol/L 3.5-5.2 03/13/2018 03/13/2018 10:49am 11:11am Chloride Level 99 mmol/L 98-108 03/13/2018 03/13/2018 10:49am 11:11am Carbon Dioxide 29 mmol/L 21-32 03/13/2018 03/13/2018 Level 10:49am 11:11am Anion Gap 18.0 mEq/L 01-2803/13/2018 03/13/2018 10:49am 11:11am Calcium Level 10.2 mg/dL 8.8-10.2 03/13/2018 03/13/2018 10:49am 11:11am Magnesium Level 2.1 mg/dL 1.6-2.4 03/13/2018 03/13/2018 10:49am 11:11am Total Protein 7.7 g/dL 6.6-8.7 03/13/2018 03/13/2018 10:49am 11:11am Albumin 4.6 g/dL 3.5-5.2 03/13/2018 03/13/2018 10:49am 11:11am Globulin 3.1 gm/dL 03/13/2018 03/13/2018 10:49am 11:11am Albumin/Globulin 1.5 >1.0 03/13/2018 03/13/2018 Ratio 10:49am 11:11am Total Bilirubin < 0.3 mg/dL 0.0-1.2 03/13/2018 03/13/2018 10:49am 11:11am Aspartate Amino 27 U/L 15-32 03/13/2018 03/13/2018 Transf (AST/SGOT) 10:49am 11:11am Alanine 37 U/L H 0-33 03/13/2018 03/13/2018 Aminotransferase 10:49am 11:11am (ALT/SGPT) HL-Mre-R-Type 502 pg/mL H 0-125 03/13/2018 03/13/2018 Natriuretic 10:49am 11:16am Peptide Total Alkaline 76 U/L 35-105 03/13/2018 03/13/2018 Phosphatase 10:49am 11:11am Creatine Kinase 37 U/L 20-180 03/13/2018 03/13/2018 10:49am 11:11am Troponin I < 0.30 ng/mL 0.0-0.5 03/13/2018 03/13/2018 Published clinical studies have shown elevations of cTnI in 10:49am 11:16am patients with myocardial injury, as seen in unstable angina pectoris, cardiac contusions, and heart transplants. Elevations have also been seen in patients with rhabdomyolysis and polymyositis. Elevated troponin levels point to myocardial injury, but are not necessarily indicative of an ischemic mechanism. The term NM should be used when there is evidence of cardiac damage, as detected by marker proteins in a clinical setting consistent with myocardial ischemia. If the clinical circumstance suggests that an ischemic mechanism is unlikely, other causes of cardiac injury should be considered. For diagnostic purposes, the results should always be assessed in conjunction with the patient's medical history, clinical examination and other findings. Creatine Kinase MB 1.5 ng/ml 0.0-3.6 03/13/2018 03/13/2018 10:49am 11:16am DIAGNOSTIC CITERIA: CKMB CKMB RELATIVE INDEX SUGGESTIVE OF NON-AMI < or=5 N/A GARVIN ZONE (INCONCLUSIVE) > 5 < or=4 SUGGESTIVE OF AMI >5 > 4 Myoglobin 26 ng/mL 25-58 03/13/2018 03/13/2018 10:49am 11:16am Procedures Procedure Status Date Provider(s) OUTPATIENT CLINIC VISIT Completed 02/14/18 X-ray of chest, single view Completed 03/13/18 [facility] MANAGER TRANSFUSION Encounters Encounter Location Arrival/Admit Date Discharge/Depart Date Attending Provider Departed [place] 03/13/18 10:19am 03/13/18 1:03pm SKYLER WHITE MD [facility] Registered [place] 02/14/18 12:59pm JOSH ROJAS Provider [facility] Recent Diagnosis
--- OUTSIDE RECORDS SUMMARY | 2018-10-15 16:13 | XMS REPORT | Continuity of Care Document ---
:1945 Author Organization [facility] Address [address] [place] [address] Phone Unavailable Care Team Providers Name Role Phone KADI CHAVES Primary Care Physician Insurance Providers Guarantor Kelsey Gordillo Address [address] [place] [address] Email NO EMAIL Payer Medicare Policy Number [id number] Subscriber's Name Kelsey Gordillo Relationship Self / Same As Patient Group Number NA Group Name NA Effective Date 07 Payer Medicaid Policy Number [id number] Subscriber's Name Kelsey Gordillo Relationship Self / Same As Patient Group Number NA Group Name NA Advance Directives Directive Response Recorded Date/Time Advance Directives No 10/01/15 10:34am Advance Directive on File Yes 06/17/18 2:43pm Directive to Physicians/Living Will No 10/01/15 10:34am Health Care Proxy No 10/01/15 10:34am Organ Donor No 10/01/15 10:34am Medical Power of Hydrologic Engineer No 10/01/15 10:34am Patient/Family Given Education Material R/T Y - 06/17/18.....SBM 06/17/18 3 :34pm Directives? Chief Complaint and Reason for Visit Chief Complaint Extremity Pain/Injury Reason for Visit [id number] Problems Medical Problem Onset Date Status Chest [...] injury Unknown Acute Nasal congestion Unknown Acute Neuropathic pain, leg Unknown Acute Orthostatic hypotension Unknown Acute Otitis [...] Glipizide 1 Tab ORAL Twice Daily (Glucotrol *) 10 Before Meals Mg Tab Hydrocodone-Acetam 1 Tab ORAL Q 8 Hrs Prn inophen 10/325MG* ([place] 10/325 Mg *) 1 Tab Tab Ibuprofen-Famotidi [...] Home Medications Medication Directions Ordered Status Apixaban (Eliquis *) 2.5 Mg Tab, Once Daily Discontinued 2.5 Mg Oral Aspirin (Asa 325 Mg*) 325 Mg Tab, Daily Discontinued 325 Mg Oral Benazepril Hcl (Lotensin 10 Mg*) Daily Discontinued 10 Mg Tab, Unknown Dose Oral Cyclobenzaprine Hcl (Flexeril *) Bedtime as needed for Muscle Discontinued 10 Mg Tab, 10 Mg Oral Spasms Digoxin (Lanoxin 0.25 Mg*) 0.25 Mg Daily Discontinued Tab, 250 Mcg Oral Doxycycline Hyclate (Vibramycin *) Twice A Day for Infection 03/13/18 Discontinued 100 Mg Tab, 1 Tab Oral Gabapentin (Neurontin *) 300 Mg Three Times A Day Discontinued Cap, 300 Mg Oral Gemfibrozil (Lopid *) 600 Mg Tab, Twice A Day Discontinued 1 Tab Oral Ibuprofen (Motrin *) 200 Mg [...] Date Status Problem Hx Alcohol Use No 06/08/2018 9:55am Not Applicable Not Applicable Hx Physical Abuse No 06/17/2018 2:43pm Not Applicable Not Applicable 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 Plan of Care Discharge Date 06/17/18 3:36pm Instructions/Education Provided Neuropathic Pain Prescriptions See Medication Section Referrals KADI CHAVES Address: [address] [place] [address] Additional Instructions/Education follow up with your primary care physician in 3 days if no improvement in symptoms return for new or worsening of symptoms tylenol for pain Functional Status No functional status information available. Allergies, Adverse Reactions, Alerts Allergen Type Severity Reaction Status Last Updated Sulfacetamide ([id number]) Allergy Severe Active 05/01/15 Sulfamethoxazole w/Trimethoprim Allergy Severe Active 05/01/15 ([id number]) Immunizations No immunization information available. Vital Signs Acute Vital Signs Vital Response Date/Time Blood Pressure 119/65 mm Hg 06/17/2018 3:35pm Pulse Pulse Rate (adult) 66 beats per minute (60 - 100) 06/17/2018 3:35pm Respiratory Rate 16 breaths per minute (10 - 24) 06/17/2018 3:35pm Temperature Source Oral 06/17/2018 3:35pm Height 5 ft 6 in 06/17/2018 2:43pm Weight 141 lb 06/17/2018 2:43pm Body Mass Index 22.8 kg/m^2 06/17/2018 2:43pm Results Laboratory Results Test Name Result Units Flags Reference Collection Result Comments Date/Time Date/Time White Blood Count 9.2 K/ul 4.0-11.5 04/26/2018 04/26/2018 4:43pm 6:10pm Red Blood Count 4.19 M/ul 3.80-5.20 04/26/2018 04/26/2018 4:43pm 6:10pm Hemoglobin 13.5 g/dl 10.5-15.7 04/26/2018 04/26/2018 4:43pm 6:10pm Hematocrit 41.0 % 34.0-50.0 04/26/2018 04/26/2018 4:43pm 6:10pm Mean Corpuscular 97.8 fl 78-98 04/26/2018 04/26/2018 Volume 4:43pm 6:10pm Mean Corpuscular 32.2 pg 26.2-33.4 04/26/2018 04/26/2018 Hemoglobin 4:43pm 6:10pm Mean Corpuscular 32.9 g/dl 31.5-36.2 04/26/2018 04/26/2018 Hemoglobin Concent 4:43pm 6:10pm Red Cell 12.6 % 11.5-15.5 04/26/2018 04/26/2018 Distribution Width 4:43pm 6:10pm Platelet Count 160 K/ul 137-338 04/26/2018 04/26/2018 4:43pm 6:10pm Mean Platelet 8.4 fl 8.4-11.8 04/26/2018 04/26/2018 Volume 4:43pm 6:10pm Neutrophils (%) 57.2 % 44.4-80.1 04/26/2018 04/26/2018 (Auto) 4:43pm 6:10pm Lymphocytes (%) 30.4 % 10.0-50.0 04/26/2018 04/26/2018 (Auto) 4:43pm 6:10pm Monocytes (%) 8.6 % 3.6-12.04 04/26/2018 04/26/2018 (Auto) 4:43pm 6:10pm Eosinophils (%) 2.6 % 0.0-5.41 04/26/2018 04/26/2018 (Auto) 4:43pm 6:10pm Basophils (%) 1.2 % H 0.0-0.79 04/26/2018 04/26/2018 (Auto) 4:43pm 6:10pm Random Glucose 93 mg/dL 82-115 04/26/2018 04/26/2018 4:43pm 6:10pm Blood Urea 20 mg/dL 8-23 04/26/2018 04/26/2018 Nitrogen 4:43pm 6:10pm Serum Osmolality 282 280-300 04/26/2018 04/26/2018 4:43pm 6:10pm Creatinine 0.7 mg/dL 0.50-0.90 04/26/2018 04/26/2018 4:43pm 6:10pm Glomerular > 60.00 04/26/2018 04/26/2018 GFR RESULTS ARE REPORTED IN mL/min/1.73m2. Filtration Rate 4:43pm 6:10pm Calc Normal GFR: >60mL/min Moderately decreased GFR: 30-59 mL/min Severely decreased GFR: 15-29 mL/min Kidney Failure (or Dialysis): <15 mL/min The calculated eGFR is not valid for patients younger than 18 years or older than 75 years. BUN/Creatinine 28.6 H 12-20 04/26/2018 04/26/2018 Ratio 4:43pm 6:10pm Sodium Level 140 mmol/L 135-145 04/26/2018 04/26/2018 4:43pm 6:10pm Potassium Level 4.5 mmol/L 3.5-5.2 04/26/2018 04/26/2018 4:43pm 6:10pm Chloride Level 99 mmol/L 98-108 04/26/2018 04/26/2018 4:43pm 6:10pm Carbon Dioxide 29 mmol/L 21-32 04/26/2018 04/26/2018 Level 4:43pm 6:10pm Anion Gap 16.5 mEq/L 12-20 04/26/2018 04/26/2018 4:43pm 6:10pm Calcium Level 9.7 mg/dL 8.8-10.2 04/26/2018 04/26/2018 4:43pm 6:10pm Total Protein 7.3 g/dL 6.6-8.7 04/26/2018 04/26/2018 4:43pm 6:10pm Albumin 4.4 g/dL 3.5-5.2 04/26/2018 04/26/2018 4:43pm 6:10pm Globulin 2.9 gm/dL 04/26/2018 04/26/2018 4:43pm 6:10pm Albumin/Globulin 1.5 >1.0 04/26/2018 04/26/2018 Ratio 4:43pm 6:10pm Total Bilirubin < 0.3 mg/dL 0.0-1.2 04/26/2018 04/26/2018 4:43pm 6:10pm Aspartate Amino 27 U/L 15-32 04/26/2018 04/26/2018 Transf (AST/SGOT) 4:43pm 6:10pm Alanine 36 U/L H 0-33 04/26/2018 04/26/2018 Aminotransferase 4:43pm 6:10pm (ALT/SGPT) Hemoglobin A1c 5.9 % 4.0-6.0 04/26/2018 04/26/2018 4:43pm 5:59pm Total Alkaline 81 U/L 35-105 04/26/2018 04/26/2018 Phosphatase 4:43pm 6:10pm Urine Microalbumin < 12.0 mg/L 0-20 04/26/2018 04/27/2018 4:43pm 12:51pm Cholesterol Level 193 mg/dL 150-200 04/26/2018 04/26/2018 4:43pm 6:10pm Triglycerides 504 mg/dL H <150 04/26/2018 04/26/2018 Level 4:43pm 6:10pm HDL Cholesterol 33 mg/dL L >65 04/26/2018 04/26/2018 HDL EXPECTED VALUES : 4:43pm 6:10pm FEMALES: >65 mg/dL NO RISK 45-65 mg/dL MODERATE RISK <45 mg/dL HIGH RISK MALES: >55 mg/dL NO RISK 35-55 mg/dL MODERATE RISK <35 mg/dL HIGH RISK LDL Cholesterol 109 mg/dL H <100 04/26/2018 04/26/2018 LDL Expected Values: 4:43pm 6:10pm Optimal <100 mg/dL Near optimal/above optimal 100-129 mg/dL Borderline high 130-159 mg/dL High 160-189 mg/dL Very high >190 mg/dL Coronary Heart 5.848 04/26/2018 04/26/2018 NATIONAL CHOLESTEROL GUIDELINES Disease Risk Ratio 4:43pm 6:10pm [facility] ([facility]) guidelines for classificaton, testing and management of cholesterol levels in adults over 20 years of age. This new classification creates three categories of risk for coronary heart disease, regardless of age or sex, according to total and LDL cholesterols levels: Based on total cholesterol level Desirable <200 mg/dl Borderline-high 200-239 mg/dl High >=240 mg/dl Based on cholesterol ratio CHD RISK CHOL/HDL RATIO MALE FEMALE 0.5 x Average 3.4 3.3 1.0 x Average 5.0 4.4 2.0 x Average 9.6 7.1 3.0 x Average 13.5 11.0 Thyroid 1.24 uIU/mL 0.36-3.74 04/26/2018 04/26/2018 Stimulating 4:43pm 6:09pm Hormone (TSH) POC Capillary 80 mg/dL 70 - 110 06/08/2018 06/08/2018 Blood Glucose 9:55am 9:56am (Chem) Procedures Procedure Status Date Provider(s) OVINE INJECT UP TO 999 [facility] UNIT Completed 04/20/18 ASSAY THYROID STIM HORMONE Completed 04/26/18 LIPID PANEL Completed 04/26/18 COMPREHEN METABOLIC PANEL Completed 04/26/18 GLYCOSYLATED HEMOGLOBIN TEST Completed 04/26/18 COMPLETE CBC W/AUTO DIFF WBC Completed 04/26/18 NJX INTERLAMINAR LMBR/SAC Completed 06/08/18 JAMAAL BARLOW MD ASSAY GLUCOSE BLOOD QUANT Completed 06/08/18 ROUTINE VENIPUNCTURE Completed 06/08/18 INJECTION, METHYLPREDNISOLONE ACETATE 80MG Completed 06/08/18 INJECTION, METHYLPREDNISOLONE ACETATE 80MG Completed 06/08/18 INJ,PROPOFOL 10MG Completed 06/08/18 OVINE INJECT UP TO 999 [facility] UNIT Completed 06/08/18 OVINE INJECT UP TO 999 [facility] UNIT Completed 06/08/18 CT THORAX W/O DYE Completed 06/16/18 XR fluoro portable intraoperative Active 06/08/[address] thorax wo contrast Completed 06/16/18 VINCE DENTON MD Encounters Encounter Location Arrival/Admit Date Discharge/Depart Date Attending Provider Departed [place] 06/17/18 2:38pm 06/17/18 3:36pm SKYLER WHITE MD [facility] Registered [place] 06/16/18 2:04pm VINCE DENTON [facility] Registered [place] 06/08/18 9:30am JAMAAL BARLOW [facility] Registered [place] 04/26/18 4:31pm KADI CHAVES [facility] Registered [place] 04/20/18 9:00am JAMAAL BARLOW [facility] Recent Diagnosis
--- OUTSIDE RECORDS SUMMARY | 2018-10-15 16:13 | XMS REPORT ---
:1945 [facility] [address] [place] [address] Care Team Providers Name Role Phone VINCE DENTON Primary Care Provider Unavailable VINCE DENTON Unavailable Unavailable Problems This patient has no known problems. Allergies, Adverse Reactions, Alerts This patient has no known allergies or adverse reactions. Medications This patient has no known medications. Encounters Start End Encounter Admission Attending Care Care Encounter Date/Time Date/Time Type Type Clinicians Facility Department ID 2017-01-12 2017-01-12 Outpatient [facility] [id number] 20:25:00 20:25:00 VINCE Results Test Description Test Time Test Comments Text Results Atomic Results Result Comments Comprehensive Metabolic Panel 2018-06-30 21:50:08 Test Item Value Reference Range Comments Sodium Level (test code=Sodium Level) 143.0 mmol/L 135.0-145.0 Potassium Level (test code=Potassium Level) 4.0 mmol/L 3.5-5.1 Chloride Level (test code=Chloride Level) 101 mmol/L 98-105 CO2 (test code=CO2) 30 mmol/L 22-29 Anion Gap (test code=Anion Gap) 12 mmol/L 7-16 BUN (test code=BUN) 14.30 mg/dL 8.00-23.00 Creatinine Level (test code=Creatinine Level) 0.90 mg/dL 0.50-0.90 BUN/Creat Ratio (test code=BUN/Creat Ratio) 16 Glucose Level (test code=Glucose Level) 68 mg/dL 70-115 Calcium Level (test code=Calcium Level) 9.5 mg/dL 8.3-10.5 Alk Phos (test code=Alk Phos) 50 U/L 35-104 Bilirubin Total (test code=Bilirubin Total) 0.2 mg/dL 0.1-0.9 Albumin Level (test code=Albumin Level) 4.1 g/dL 3.5-5.2 Protein Total (test code=Protein Total) 6.7 g/dL 6.4-8.3 ALT (test code=ALT) 18 U/L 1-33 AST (test code=AST) 17 U/L 1-32 Globulin (test code=Globulin) 2.6 g/dL 2.9-3.1 A/G Ratio (test code=A/G Ratio) 1.6 ratio Comprehensive Metabolic [id number] 21:50:08 Test Item Value Reference Range Comments Sodium Level (test 143.0 mmol/L 135.0-145.0 code=Sodium Level) Potassium Level (test 4.0 mmol/L 3.5-5.1 code=Potassium Level) Chloride Level (test 101 mmol/L 98-105 code=Chloride Level) CO2 (test code=CO2) 30 mmol/L 22-29 Anion Gap (test 12 mmol/L 7-16 code=Anion Gap) BUN (test code=BUN) 14.30 mg/dL 8.00-23.00 Creatinine Level (test 0.90 mg/dL 0.50-0.90 code=Creatinine Level) BUN/Creat Ratio (test 16 code=BUN/Creat Ratio) Glucose Level (test 68 mg/dL 70-115 code=Glucose Level) Calcium Level (test 9.5 mg/dL 8.3-10.5 code=Calcium Level) Alk Phos (test code=Alk 50 U/L 35-104 Phos) Bilirubin Total (test 0.2 mg/dL 0.1-0.9 code=Bilirubin Total) Albumin Level (test 4.1 g/dL 3.5-5.2 code=Albumin Level) Protein Total (test 6.7 g/dL 6.4-8.3 code=Protein Total) ALT (test code=ALT) 18 U/L 1-33 AST (test code=AST) 17 U/L 1-32 Globulin (test 2.6 g/dL 2.9-3.1 code=Globulin) A/G Ratio (test code=A/G 1.6 ratio Ratio) eGFR AA (test code=eGFR >60 mL/min/1.73 m2 eGFR (estimated AA) Glomerular Filtration Rate) is an estimated value, calculated from the patient's serum creatinine using the MDRD equation. It is NOT the patient's actual GFR. The eGFR provides a more clinically useful measure of kidney disease than serum creatinine alone.This calculation takes sex and race into account, if the information is provided. If the race is not provided, and the patient is -Iraqi, multiply by 1.212. If sex is not provided, and the patient is female, multiply by 0.742. Results for patients <18 years of age have not been validated by the MDRD study and should be interpreted with caution. eGFR Result Interpretation:eGFR > or=60 is in the Normal RangeeGFR < 60 may mean kidney diseaseeGFR < 15 may mean kidney failure Ranges recommended by the National Kidney Foundation, http://nkdep.nih.gov Lipid [id number] 21:50:08 Test Item Value Reference Range Comments Cholesterol Total (test 192 mg/dL 0-200 RISK OF HEART DISEASEPublished code=Cholesterol Total) by [place] [employer] Analyte Optimal Borderline Increased RiskCHOL <200 200-239 >240TRIG <150 150-199 >200HDL Male >60 <40HDL Female >60 <50LDL <100 130-159 >160LDL Near optimal is 100-129 Triglycerides (test 253 mg/dL 9-200 code=Triglycerides) HDL (test code=HDL) 36 mg/dL 50-60 LDL (test code=LDL) 105 mg/dL 0-130 The equation being used in this calculation is LDL=(Chol - HDL) - (Trig / 5) VLDL (test code=VLDL) 51 mg/dL 5-40 The equation being used in this calculation is VLDL=Trig / 5 Chol/HDL (test 5.3 ratio 0.0-4.4 code=Chol/HDL) LDL/HDL Ratio (test 3 The equation being used in this code=LDL/HDL Ratio) calculation is LDL/HDL Ratio=LDL Calc/HDL Chol Pro B Natriuretic [id number] 21:50:08 Test Item Value Reference Range Comments NT-proBNP (test code=NT-proBNP) 2287 pg/mL 0-124 Comprehensive Metabolic [id number] 21:50:08 Test Item Value Reference Range Comments Sodium Level (test 143.0 mmol/L 135.0-145.0 code=Sodium Level) Potassium Level (test 4.0 mmol/L 3.5-5.1 code=Potassium Level) Chloride Level (test 101 mmol/L 98-105 code=Chloride Level) CO2 (test code=CO2) 30 mmol/L 22-29 Anion Gap (test 12 mmol/L 7-16 code=Anion Gap) BUN (test code=BUN) 14.30 mg/dL 8.00-23.00 Creatinine Level (test 0.90 mg/dL 0.50-0.90 code=Creatinine Level) BUN/Creat Ratio (test 16 code=BUN/Creat Ratio) Glucose Level (test 68 mg/dL 70-115 code=Glucose Level) Calcium Level (test 9.5 mg/dL 8.3-10.5 code=Calcium Level) Alk Phos (test code=Alk 50 U/L 35-104 Phos) Bilirubin Total (test 0.2 mg/dL 0.1-0.9 code=Bilirubin Total) Albumin Level (test 4.1 g/dL 3.5-5.2 code=Albumin Level) Protein Total (test 6.7 g/dL 6.4-8.3 code=Protein Total) ALT (test code=ALT) 18 U/L 1-33 AST (test code=AST) 17 U/L 1-32 Globulin (test 2.6 g/dL 2.9-3.1 code=Globulin) A/G Ratio (test code=A/G 1.6 ratio Ratio) eGFR AA (test code=eGFR >60 mL/min/1.73 m2 eGFR (estimated AA) Glomerular Filtration Rate) is an estimated value, calculated from the patient's serum creatinine using the MDRD equation. It is NOT the patient's actual GFR. The eGFR provides a more clinically useful measure of kidney disease than serum creatinine alone.This calculation takes sex and race into account, if the information is provided. If the race is not provided, and the patient is -Iraqi, multiply by 1.212. If sex is not provided, and the patient is female, multiply by 0.742. Results for patients <18 years of age have not been validated by the MDRD study and should be interpreted with caution. eGFR Result Interpretation:eGFR > or=60 is in the Normal RangeeGFR < 60 may mean kidney diseaseeGFR < 15 may mean kidney failure Ranges recommended by the National Kidney Foundation, http://nkdep.nih.gov eGFR Non-AA (test >60.00 mL/min/1.73 eGFR (estimated code=eGFR Non-AA) m2 Glomerular Filtration Rate) is an estimated value, calculated from the patient's serum creatinine using the MDRD equation. It is NOT the patient's actual GFR. The eGFR provides a more clinically useful measure of kidney disease than serum creatinine alone.This calculation takes sex and race into account, if the information is provided. If the race is not provided, and the patient is -Iraqi, multiply by 1.212. If sex is not provided, and the patient is female, multiply by 0.742. Results for patients <18 years of age have not been validated by the MDRD study and should be interpreted with caution. eGFR Result Interpretation:eGFR > or=60 is in the Normal RangeeGFR < 60 may mean kidney diseaseeGFR < 15 may mean kidney failure Ranges recommended by the National Kidney Foundation, http://nkdep.nih.gov Complete Blood Count with [id number] 21:31:45 Test Item Value Reference Range Comments WBC (test code=WBC) 8.2 x10 4.4-10.5 RBC (test code=RBC) 4.04 x10 3.75-5.20 Hgb (test code=Hgb) 12.7 g/dL 12.2-14.8 Hct (test code=Hct) 40.0 % 36.5-44.4 MCV (test code=MCV) 99.00 fL 80.00-100.00 MCHC (test code=MCHC) 31.80 g/dL 32.00-37.50 RDW CV (test code=RDW CV) 12.4 % 11.5-14.5 MCH (test code=MCH) 31.4 pg 27.0-32.5 Platelets (test 121.0 x10 140.0-440.0 code=Platelets) MPV (test code=MPV) 12.7 fL Slide Review (test code=Slide Auto Auto Result created by Review) GL_SJM_SLIDE_REV_AUTO GL_SJM_XN_RFLX GL_SJM_XN_RFLX nRBC (test code=nRBC) 0 NRBC Abs (test code=NRBC Abs) 0.00 x10 Pos Count XN (test code=Pos A Count XN) IPF (test code=IPF) 4 % Automated [id number] 21:31:45 Test Item Value Reference Range Comments Neutro Auto (test code=Neutro Auto) 59.2 % 36.0-70.0 Lymph Auto (test code=Lymph Auto) 23.6 % 12.0-44.0 Antelope Auto (test code=Antelope Auto) 10.8 % 0.0-11.0 Eos, Auto (test code=Eos, Auto) 2.3 % 0.0-7.0 Basophil Auto (test code=Basophil Auto) 0.5 % 0.0-2.0 Neutro Absolute (test code=Neutro Absolute) 4.9 x10 1.6-7.4 Lymph Absolute (test code=Lymph Absolute) 1.95 x10 .50-4.60 Antelope Absolute (test code=Antelope Absolute) .89 x10 .00-1.20 Eos Absolute (test code=Eos Absolute) 0.19 x10 0.00-0.74 Baso Absolute (test code=Baso Absolute) 0.04 x10 0.00-0.21 IG [id number] 21:31:45 Test Item Value Reference Range Comments IG (test code=IG) 3.6 % 0.0-5.0 IG Abs (test code=IG Abs) 0 x10 Lipid [id number] 21:24:00 Test Item Value Reference Range Comments Cholesterol (test 165 mg/dL 0-200 code=CHOL) Triglycerides (test 240 mg/dL 9-200 Unable to calculate, Trig >400 code=TRIG) HDL (test code=HDL) 29 mg/dL 50-60 Chol/HDL (test 5.7 Ratio 0.0-4.4 code=CHOLPHDL) LDL, Calculated (test 88 mg/dL 0-130 (NOTE)RISK OF HEART code=LDLC) DISEASEPublished by [place] Heart AssociationAnalyte Optimal Boderline Increased RiskCHOL <200 200-239 >240TRIG <150 150-199 >200HDL Male: >60 <40HDL Female: >60 <50LDL <100 130-159 >160LDL NEAR OPTIMAL IS 100-129 VLDL (test code=VLDL) 48 mg/dL 5-40 LDL/HDL (test code=LDLPHDL) 3 Comprehensive Metabolic [id number] 21:24:00 Test Item Value Reference Range Comments Sodium (test code=NA) 138 mmol/L 135-145 Potassium (test code=K) 4.6 mmol/L 3.5-5.1 Chloride (test code=CL) 101 mmol/L 98-105 Carbon Dioxide (test 27 mmol/L 22-29 code=CO2) Glucose (test code=GLU) 149 mg/dL 70-115 Blood Urea Nitrogen 12 mg/dL 8-23 (test code=BUN) Creatinine (test 0.6 mg/dL 0.5-0.9 code=CREAT) Calcium (test code=CA) 9.4 mg/dL 8.3-10.5 Prot Total (test 6.6 g/dL 6.4-8.3 code=TP) Albumin (test code=ALB) 4.2 g/dL 3.5-5.2 A/G Ratio (test 1.8 Ratio code=AGRATIO) Globulin (test 2.4 2.9-3.1 code=GLOB) Bili Total (test 0.2 mg/dL 0.1-0.9 code=TBIL) Alk Phos (test 92 U/L 35-104 code=APHOS) AST (test code=AST) 22 U/L 1-32 ALT (test code=ALT) 21 U/L 1-33 BUN/Creatinine Ratio 20.0 (test code=BCRATIO) Anion Gap (test 10 mmol/L 7-16 code=AGAP) Estimated GFR (test >60 mL/min/1.73m2 eGFR (estimated Glomerular code=GFR) Filtration Rate) is an estimated value,calculated from the patient's serum creatinine using the MDRD equation.It is NOT the patient's actual GFR. The eGFR provides a more clinicallyuseful measure of kidney disease than serum creatinine alone.This calculation takes sex and race into account, if the informationis provided. If the race is not provided, and the patient isAfrican-Iraqi, multiply by 1.212. If sex is not provided, and thepatient is female, multiply by 0.742. Results for patients <18 years ofage have not been validated by the MDRD study and should be interpretedwith caution.eGFR Result Interpretation:eGFR > or=60 is in the Normal RangeeGFR < 60 may mean kidney diseaseeGFR < 15 may mean kidney failureRanges recommended by the National Kidney Foundation,http://nkdep.nih .gov CBC with [id number] 20:36:00 Test Item Value Reference Range Comments WBC (test code=WBC) 8.6 K/cumm 4.4-10.5 RBC (test code=RBC) 4.47 M/cumm 3.75-5.20 Hemoglobin (test code=HGB) 13.9 gm/dL 12.2-14.8 Hematocrit (test code=HCT) 40.8 % 36.5-44.4 MCV (test code=MCV) 91.3 fL 80-100 MCH (test code=MCH) 31.1 pg 27.0-32.5 MCHC (test code=MCHC) 34.1 g/dL 32.0-37.5 RDW (test code=RDW) 12.8 % 11.5-14.5 Platelet Count (test code=PLTCT) 184 K/cumm 140-440 MPV (test code=MPV) 11.2 fL Diff Method (test code=DIFFM) Auto Neutrophil (test code=NEUT) 68.7 % 36-70 Lymphocyte (test code=LYMPH) 21.5 % 12-44 Monocyte (test code=MONO) 6.8 % 0-11 Eosinophil (test code=EOS) 2.5 % 0-7 Basophil (test code=BASO) 0.4 % 0-2 Neutro Abs (test code=ANEUT) 5.9 K/cumm 1.6-7.4 Lymph Abs (test code=ALYMPH) 1.9 K/cumm 0.5-4.6 Antelope Abs (test code=AMONO) 0.6 K/cumm 0.0-1.2 Eos Abs (test code=AEOS) 0.22 K/cumm 0.00-0.74 Baso Abs (test code=ABASO) 0.0 K/cumm 0.00-0.21 CBC with [id number] 21:38:00 Test Item Value Reference Range Comments WBC (test code=WBC) 7.5 K/cumm 4.4-10.5 RBC (test code=RBC) 4.01 M/cumm 3.75-5.20 Hemoglobin (test code=HGB) 12.6 gm/dL 12.2-14.8 Hematocrit (test code=HCT) 37.3 % 36.5-44.4 MCV (test code=MCV) 93.0 fL 80-100 MCH (test code=MCH) 31.5 pg 27.0-32.5 MCHC (test code=MCHC) 33.9 g/dL 32.0-37.5 RDW (test code=RDW) 12.6 % 11.5-14.5 Platelet Count (test code=PLTCT) 162 K/cumm 140-440 MPV (test code=MPV) 8.8 fL Diff Method (test code=DIFFM) Auto Neutrophil (test code=NEUT) 60.2 % 36-70 Lymphocyte (test code=LYMPH) 29.2 % 12-44 Monocyte (test code=MONO) 7.6 % 0-11 Eosinophil (test code=EOS) 2.6 % 0-7 Basophil (test code=BASO) 0.5 % 0-2 Neutro Abs (test code=ANEUT) 4.5 K/cumm 1.6-7.4 Lymph Abs (test code=ALYMPH) 2.2 K/cumm 0.5-4.6 Antelope Abs (test code=AMONO) 0.6 K/cumm 0.0-1.2 Eos Abs (test code=AEOS) 0.19 K/cumm 0.00-0.74 Baso Abs (test code=ABASO) 0.0 K/cumm 0.00-0.21 Comprehensive Metabolic [id number] 21:25:00 Test Item Value Reference Range Comments Sodium (test code=NA) 136 mmol/L 135-145 Potassium (test code=K) 4.7 mmol/L 3.5-5.1 Chloride (test code=CL) 101 mmol/L 98-105 Carbon Dioxide (test 28 mmol/L 22-29 code=CO2) Glucose (test code=GLU) 86 mg/dL 70-115 Blood Urea Nitrogen 10 mg/dL 8-23 (test code=BUN) Creatinine (test 0.7 mg/dL 0.5-0.9 code=CREAT) Calcium (test code=CA) 9.4 mg/dL 8.3-10.5 Prot Total (test 6.5 g/dL 6.4-8.3 code=TP) Albumin (test code=ALB) 4.1 g/dL 3.5-5.2 A/G Ratio (test 1.7 Ratio code=AGRATIO) Globulin (test 2.4 2.9-3.1 code=GLOB) Bili Total (test 0.2 mg/dL 0.1-0.9 code=TBIL) Alk Phos (test 65 U/L 35-104 code=APHOS) AST (test code=AST) 16 U/L 1-32 ALT (test code=ALT) 15 U/L 1-33 BUN/Creatinine Ratio 14.3 (test code=BCRATIO) Anion Gap (test 7 mmol/L 7-16 code=AGAP) Estimated GFR (test >60 mL/min/1.73m2 eGFR (estimated Glomerular code=GFR) Filtration Rate) is an estimated value,calculated from the patient's serum creatinine using the MDRD equation.It is NOT the patient's actual GFR. The eGFR provides a more clinicallyuseful measure of kidney disease than serum creatinine alone.This calculation takes sex and race into account, if the informationis provided. If the race is not provided, and the patient isAfrican-Iraqi, multiply by 1.212. If sex is not provided, and thepatient is female, multiply by 0.742. Results for patients <18 years ofage have not been validated by the MDRD study and should be interpretedwith caution.eGFR Result Interpretation:eGFR > or=60 is in the Normal RangeeGFR < 60 may mean kidney diseaseeGFR < 15 may mean kidney failureRanges recommended by the National Kidney Foundation,http://nkdep.nih .gov Lipid [id number] 21:25:00 Test Item Value Reference Range Comments Cholesterol (test 168 mg/dL 0-200 code=CHOL) Triglycerides (test 274 mg/dL 9-200 Unable to calculate, Trig >400 code=TRIG) HDL (test code=HDL) 31 mg/dL 50-60 Chol/HDL (test 5.4 Ratio 0.0-4.4 code=CHOLPHDL) LDL, Calculated (test 82 mg/dL 0-130 (NOTE)RISK OF HEART code=LDLC) DISEASEPublished by [place] Heart AssociationAnalyte Optimal Boderline Increased RiskCHOL <200 200-239 >240TRIG <150 150-199 >200HDL Male: >60 <40HDL Female: >60 <50LDL <100 130-159 >160LDL NEAR OPTIMAL IS 100-129 VLDL (test code=VLDL) 55 mg/dL 5-40 LDL/HDL (test code=LDLPHDL) 3 [id number] 21:21:00 Test Item Value Reference Range Comments NT ProBnp (test code=PBNP) 556 pg/mL 0-124
--- OUTSIDE RECORDS SUMMARY | 2018-10-15 16:14 | XMS REPORT | Encounter Summary ---
:1945 Author Care Team Providers Name Role Phone Celsa Maloney Primary Care Provider [phone] Reason for Visit Follow Up Visit Instructions 1. Pain in right hip joint Discussion Note: None recorded.Patient educational handouts: No information available. Plan of Care Reminders Provider Appointments FOLLOW-UP 09/02/2018 NIKOLAS Grimm 3:30PM Lab None recorded. Referral None recorded. Procedures None recorded. Surgeries None recorded. Imaging None recorded. Medications Name Start Date amoxicillin 875 mg-potassium clavulanate 125 mg tablet Take 1 tablet every 12 hours by oral route for 10 days. aspirin 81 mg chewable tablet Chew 1 tablet every day by oral route. buspirone 10 mg tablet carvedilol 25 mg tablet clindamycin HCl 300 mg capsule Combivent Respimat 20 mcg-100 mcg/actuation solution for inhalation Creon 12,000-38,000-60,000 unit capsule,delayed release digoxin 125 mcg tablet Eliquis 2.5 mg tablet fenofibrate nanocrystallized 145 mg tablet Take one tablet by mouth every morning Flonase Allergy Relief 50 mcg/actuation nasal spray,suspension Waldron 1 spray every day by intranasal route for 30 days. fluoxetine 40 mg capsule Take 1 capsule [...] 1 tablet every day by oral route. methylprednisolone 4 mg tablets in a dose pack akyxrani-ytcqgwhbs-wudkiammg 3.5 mg-10,000 unit/mL-1 % ear drops,susp INSTILL 4 DROPS INTO AFFECTED EAR(S) BY OTIC ROUTE 3 TIMES PER DAY nitroglycerin 0.4 mg sublingual tablet potassium chloride ER 10 mEq capsule,extended release potassium chloride ER 10 mEq tablet,extended release(part/cryst) pravastatin 20 mg tablet Voltaren 1 % topical gel Medications Administered None recorded. Vitals Height Weight BMI Blood Pressure 67 in 141 lbs 22.1 kg/m2 120/70 mm[Hg] Lab Results None recorded. Allergies Code Code System Name Reaction Severity Status Onset 151776 RxNorm Bactrim Rash Moderate to Active Severe [...] Information not available Hysterectomy Information not available 08/03/2018 Unlisted Imaging Order [facility] ( [facility]) [address] [place] [address] (Work Place) Vaccine List None recorded. Social History Smoking Status Heavy Tobacco Smoker (1/2 PPD) Past Encounters 08/19/2018 Pain in Right Hip Joint Abram Crews MD: [address], [place] [address], Ph. [phone] 08/03/2018 Pain in Left Knee; Osteoarthritis of Knee; Otitis Externa; Chronic Systolic Heart Failure NIKOLAS Grimm: [address], [address], [place] [address], Ph. 07/30/2018 Acute Sinusitis; Acute Right Otitis Media Mary Turcios [employer]UCTURAL ENGINEER: [address], [address], [place] [address], Ph. History of Present Illness None recorded. Review of Systems None recorded. 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 Mood and Affect: active and alert, normal mood, normal affect Cardiovascular System: Arterial Pulses Right: radial normal, brachial normal. Edema Right: none. Edema Left: none. Varicosities Right: no varicosities. Varicosities Left: no varicosities Lymph Nodes: Inspection/Palpation Right: no cervical LAD. Inspection/Palpation Left: no cervical LAD C-Spine/Neck: Active Range of Motion: flexion normal, extension normal, rotation normal, lateral flexion normal, no crepitus; +neer + Hawkin _ relocation testing. Passive Range of Motion: flexion normal, extension normal, rotation normal, lateral flexion normal Shoulders: Inspection Right: no misalignment, no scapular winging, no atrophy, AC prominence normal, no erythema, no induration. Inspection Left: no misalignment, no scapular winging. Bony Palpation Right: no tenderness of the suprasternal notch, no tenderness of the sternoclavicular joint. Soft Tissue Palpation Right: tenderness of the supraspinatus, tenderness of the subacromial bursa, tenderness of the subdeltoid bursa. Stability Right: no dislocation, no laxity, sulcus sign negative, anterior relocation test negative Neurological System: Coordination: dpuajr-hu-ymso movement normal. Biceps Reflex Right: normal (2). Biceps Reflex Left: normal (2). Brachioradialis Reflex Right: normal (2). Sensation on the Right: ; xrays reveal end stage o-a right hip will place on diclfenac. Ankle Reflex Right: diminished (1) Lumbar Spine: Special Tests: supine straight leg raising test positive Hip/Pelvis Appearance: Inspection: no leg length discrepancy, right hip higher than left Hips: Passive Range of Motion Right: limited. Strength Right: ; will send for cardiac clearance of the right hip
--- OUTSIDE RECORDS SUMMARY | 2018-10-15 16:14 | XMS REPORT | Encounter Summary ---
:1945 Author Care Team Providers Name Role Phone [facility] Primary Care Provider [phone] Reason for Visit painful foot Instructions 1. Pain in right lower limb Discussion Note: None recorded.Patient educational handouts: No information available. Plan of Care Patient Instructions Ice for 20 min at a time. Reminders Provider Appointments FOLLOW-UP 09/28/2018 NIKOLAS Grimm 3:30PM Follow up 10/05/2018 Abram Crews MD 1:45PM Lab None recorded. Referral None recorded. Procedures [...] mg tablet fenofibrate nanocrystallized 145 mg tablet TAKE ONE (1) TABLET(S) BY MOUTH EVERY MORNING. Flonase Allergy Relief 50 mcg/actuation nasal spray,suspension [place] 1 spray every day by intranasal route [...] 1 tablet every day by oral route. eeeqjtwh-uezvuodoi-bqhcretti 3.5 mg-10,000 unit/mL-1 % ear drops,susp INSTILL 4 DROPS INTO AFFECTED EAR(S) BY OTIC ROUTE 3 TIMES PER DAY nitroglycerin 0.4 mg sublingual tablet potassium chloride ER 10 mEq capsule,extended release potassium chloride ER 10 mEq tablet,extended release(part/cryst) pravastatin 20 mg tablet Voltaren 1 % topical gel Medications Administered None recorded. Vitals Height Weight BMI Blood Pressure 67 in 146 lbs 6 oz 22.9 kg/m2 136/80 mm[Hg] Lab Results None recorded. Allergies Code Code System Name Reaction Severity Status Onset 268628 RxNorm Bactrim Rash Moderate to Active Severe [...] available Vaccine List None recorded. Social History Tobacco Smoking Status Heavy Tobacco Smoker (1/2 PPD) Past Encounters 09/24/2018 Pain in Right Lower Limb Mary Gabriela Turcios, [employer]: [address], [address], [place] [address], Ph. History of Present Illness Note: Can of vegetables fell from pantry shelf onto right knee, meehan, and top of foot x 2 days ago. Review of Systems [facility] General Adult ROS Reported By: Patient ENMT: Ears: no difficulty hearing, no ear pain. Nose: no frequent nosebleeds, no nose/sinus problems. Mouth/Throat: no sore throat, No Post Nasal Dripping, Constantly clearing the throat, hiccups, itching throat, (normal) weak voice: constant Cardiovascular: Cardiovascular: no chest pain, no arm pain on exertion, no shortness of breath when walking, no shortness of breath when lying down, no palpitations, no known heart murmur Respiratory: Respiratory: no cough, no wheezing, no shortness of breath, no coughing up blood Gastrointestinal: Gastrointestinal: no abdominal pain, no vomiting, normal appetite, no diarrhea, not vomiting blood Genitourinary: Genitourinary: no incontinence, no difficulty urinating, no increased frequency Musculoskeletal: Musculoskeletal: no muscle aches, no muscle weakness, no arthralgias/joint pain, no back pain, no swelling in the extremities; right knee, meehan, and top of foot pain Neurologic: Neurologic: no loss of consciousness, no weakness, no numbness, no seizures, no dizziness, no headaches Endocrine: Endocrine: no fatigue Allergic/Immunologic: Allergy/Immunologic: no runny nose, no sinus pressure, no itching, no hives, no frequent sneezing Physical Exam General Adult Exam - Female Reported By: Patient Constitutional: General Appearance: healthy-appearing, well-nourished, well-developed. Level of Distress: NAD. Ambulation: ambulating normally Psychiatric: Insight: good judgement. Mental Status: active [...] peripheral vision grossly intact, acuity grossly intact Neck: Neck: supple, trachea midline, no masses, [...] Pulses including femoral / pedal: normal throughout Breast: Breast: normal appearance, no masses, no abnormal secretions Abdomen: Bowel Sounds: normal. Inspection and Palpation: soft, non-distended, no tenderness, no guarding, no rebound tenderness, no masses, no CVA tenderness. Liver: non-tender, no hepatomegaly. Spleen: non-tender, no splenomegaly. Hernia: none palpable Musculoskeletal:: Motor Strength and Tone: normal motor strength, normal tone. Joints, Bones, and Muscles: normal movement of all extremities, no bony abnormalities, no contractures, no malalignment, tenderness; no bruising noted. Extremities: no cyanosis, no edema, no varicosities, no palpable cord Neurologic: Gait and Station: normal gait, normal station. Cranial Nerves: grossly intact. Sensation: grossly intact, monofilament test intact. Reflexes: DTRs 2+ bilaterally throughout. Coordination and Cerebellum: ibzalz-ho-jinr intact, no tremor Skin: Inspection and palpation: no rash, no lesions, no ulcer, no abnormal nevi, no induration, no nodules, good turgor, no jaundice. Nails: normal
--- OUTSIDE RECORDS SUMMARY | 2018-10-15 16:14 | XMS REPORT | Encounter Summary ---
:1945 Author Care Team Providers Name Role Phone Celsa Maloney Primary Care Provider [phone] Reason for Visit Otitis media Instructions 1. Pain in left knee unlisted imaging order - knee left 3V 2. Osteoarthritis of knee 3. Otitis externa amumkvje-upyppkftm-acwdupxoh 3.5 mg-10,000 unit/mL-1 % ear drops, susp 4. Chronic systolic heart failure BNP (B-type natriuretic peptide), serum or plasma BMP, serum or plasma Discussion Note: None recorded.Patient educational handouts: No information available. Plan of Care Patient Instructions We also advise that she f/u with DR. Kim TOMLINSON regarding Heart failure . Reminders Provider Appointments Any 30 on or around [facility] [place], 08/17/2018 [place] Follow up 08/23/2018 Sonu Perez MD 1:45PM Lab BNP (B-type 08/03/2018 [place] Natriuretic Peptide), [facility] Serum or Plasma Center (Labs) (Xray) BMP, Serum or 08/03/2018 [place] Plasma [facility] (Labs) (Xray) Referral None recorded. Procedures None recorded. Surgeries None recorded. Imaging Unlisted 08/03/2018 [place] Imaging Order [facility] (Scheduling) Medications Name Start Date amoxicillin 875 mg-potassium [...] Flonase Allergy Relief 50 mcg/actuation nasal spray,suspension [place] 1 spray every day by intranasal route [...] 1 tablet every day by oral route. povjcjlw-xmlxhmmra-xoigvqthy 3.5 mg-10,000 unit/mL-1 % ear drops,susp INSTILL 4 DROPS INTO AFFECTED EAR(S) BY OTIC ROUTE 3 TIMES PER DAY nitroglycerin 0.4 mg sublingual tablet potassium chloride ER 10 mEq capsule,extended release potassium chloride ER 10 mEq tablet,extended release(part/cryst) pravastatin 20 mg tablet Voltaren 1 % topical gel Medications Administered None recorded. Vitals Height Weight BMI Blood Pressure 67 in 141 lbs 11.2 oz 22.2 kg/m2 105/60 mm[Hg] Lab Results None recorded. Allergies Code Code System Name Reaction Severity Status Onset 363337 RxNorm Bactrim Rash Moderate to Active Severe [...] Information not available 08/03/2018 Unlisted Imaging Order [facility] ( [facility]) [address] [place] [address] (Work Place) Vaccine List None recorded. Social History Smoking Status Heavy Tobacco Smoker (1/2 PPD) Past Encounters 08/03/2018 Pain in Left Knee; Osteoarthritis of Knee; Otitis Externa; Chronic Systolic Heart Failure NIKOLAS Grimm: [address], [address], [place] [address], Ph. 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 History of Present Illness Musculoskeletal Pain Reported By: Patient HPI: Location: pain is not radiating, left knee. Quality: dull. Severity: worsening, pain level without meds 7/10. Duration: present <1 month; about 2 weeks. Timing: intermittent, gradual. Context: overuse, unusual activity. Alleviating factors: rest, relieved by changing position. Aggravating factors: bending over, twisting. Associated Symptoms: no fever, no weak limbs, no tingling, no numbness of the legs/feet. ADL (Activities of Daily Living) walking Earache Reported By: Patient HPI: Location: right. Quality: aching, dull. Severity: worsening, continuous, current pain 8/10. Duration: ; a week. Timing: worse. Context: ; Recent ear infection. Modifying Factors: does not hurt to lie on, or pull on ear, does not hurt to chew. Associated Symptoms: no discharge from the ears, no hearing loss, no nose/sinus problems, no popping noise in the ears, no ringing in the ears Care Management - Congestive Heart Failure (CHF) Reported By: Patient HPI: Self Care: not under emotional stress, no recent hospitalization, last visit 06/30/18, blood pressure goal: <130/80, weight status: Normal, using an SANYA inhibitor, using a beta [place], using a diuretic. Severity: does not interfere with daily activities. Associated Symptoms: shortness of breath, limb swelling Note: Ms. Coker RTC f/u ear infection she says the right ear is still painful she also c/o pain in herleft knee and swelling in both legs .Review of Systems: ROS as noted in the HPI Review of Systems None recorded. Physical Exam General Adult Exam - Female Reported By: Patient Constitutional: General Appearance: healthy-appearing, well-nourished, well-developed. Level of Distress: mild distress. Ambulation: limited ambulation, ambulation with cane ENMT: Ears: no lesions on external ear, TMs clear; External right ear canal is red and swollen. Hearing: hearing decreased. Nose: no lesions on external nose, nares patent, no septal deviation, nasal passages clear, no sinus tenderness, no nasal discharge. Lips, Teeth, and Gums: no mouth or lip ulcers, no bleeding gums, poor dentition. Oropharynx: moist mucous membranes, no erythema, no exudates, tonsils not enlarged Neck: Neck: supple, trachea midline, no masses, FROM, no carotid bruits. Lymph Nodes: no cervical LAD, no supraclavicular LAD, no axillary LAD, no inguinal LAD. Thyroid: no enlargement, non-tender, no nodules Lungs: Respiratory effort: no dyspnea. Percussion: no dullness, flatness, or hyperresonance. Auscultation: good air movement, no wheezing, no rales/crackles, no rhonchi, decreased breath sounds Cardiovascular: Apical Impulse: not displaced. Heart Auscultation: RRR, normal S1, normal S2, no murmurs, no rubs, no gallops. Neck vessels: no carotid bruits. Pulses including femoral / pedal: normal throughout Musculoskeletal:: Motor Strength and Tone: normal motor strength, normal tone. Joints, Bones, and Muscles: no contractures, no malalignment, limited ROM, bony deformity, tenderness. Extremities: no cyanosis, no varicosities, no palpable cord, edema
--- OUTSIDE RECORDS SUMMARY | 2018-10-15 16:14 | XMS REPORT | Encounter Summary ---
:1945 Author Care Team Providers Name Role Phone Celsa Maloney Primary Care Provider [phone] Reason for Visit None recorded. Instructions 1. Acute sinusitis sinusitis: care instructions Augmentin 875 mg-125 mg tablet Flonase Allergy Relief 50 mcg/actuation nasal spray,suspension 2. Acute right otitis media Discussion Note: None recorded. Plan of Care Reminders Provider Appointments FOLLOW-UP 08/03/2018 NIKOLAS Grimm 1:30PM Lab None recorded. Referral None recorded. Procedures None recorded. Surgeries None recorded. Imaging None recorded. Medications Name Start Date aspirin 81 mg chewable tablet Chew 1 tablet every day by oral route. Augmentin 875 mg-125 mg tablet Take 1 tablet every 12 hours by oral route for 10 days. buspirone 10 mg tablet carvedilol 25 mg tablet Combivent Respimat 20 mcg-100 mcg/actuation solution for inhalation [place]on 12,000-38,000-60,000 unit capsule,delayed release digoxin 125 mcg tablet Eliquis 2.5 mg tablet fenofibrate nanocrystallized 145 mg tablet Take one tablet by mouth every morning Flonase Allergy Relief 50 mcg/actuation nasal spray,suspension [place] 1 spray every day by intranasal route [...] Take by oral route for 90 days. Macrobid 100 mg capsule Take 1 capsule every 12 hours by oral route as directed for 7 days. meclizine 25 mg tablet methocarbamol 500 mg tablet Take 1 tablet every day by oral route. lxmiujsj-yqygbypgn-rcsjwpnyo 3.5 mg-10,000 unit/mL-1 % ear drops,susp INSTILL 4 DROPS INTO AFFECTED EAR(S) BY OTIC ROUTE 3 TIMES PER DAY nitroglycerin 0.4 mg sublingual tablet potassium chloride ER 10 mEq capsule,extended release potassium chloride ER 10 mEq tablet,extended release(part/cryst) pravastatin 20 mg tablet Voltaren 1 % topical gel Medications Administered None recorded. Vitals Height Weight BMI Blood Pressure 67 in 141 lbs 8 oz 22.2 kg/m2 106/70 mm[Hg] Lab Results Date Name Specimen Result Interpretation Description Value Range Status Address 06/30/2018 Urinalysis, Leukocytes Trace In-House Dipstick Results: For Internal Use Only Nitrite negative In-House Results: For Internal Use Only Urobilinogen .2 In-House Results: For Internal Use Only Protein Negative In-House Results: For Internal Use Only Ph 5.0 In-House Results: For Internal Use Only Blood Negative In-House Results: For Internal Use Only Specific 1.005 In-House [place] Results: For Internal Use Only Ketone Negative In-House Results: For Internal Use Only Bilirubin Negative In-House Results: For Internal Use Only Glucose Negative In-House Results: For Internal Use Only Appearance Cloudy In-House Results: For Internal Use Only Color Yellow In-House Results: For Internal Use Only Allergies Code Code System Name Reaction Severity Status Onset 235858 RxNorm Bactrim Rash Moderate to Active Severe [...] Heavy Tobacco Smoker (1/2 PPD) Past Encounters 07/30/2018 Acute Sinusitis; Acute Right Otitis Media Mary Turcios, [employer]: [address], [address], [place] [address], Ph. 06/30/2018 Otitis Media; Chronic Pain; Urinary Tract Infectious Disease Sb [place] PA: [address], [address], [place] [address], Ph. History of Present Illness Note: Right ear pain, sinus pressure and coughing up yellow mucus Review of Systems General Adult ROS Reported [...] palpitations, no known heart murmur Respiratory: Respiratory: cough Gastrointestinal: Gastrointestinal: no abdominal pain, no vomiting, [...] Memory: recent memory normal, remote memory normal ENMT: Ears: no lesions on external ear, TM erythematous, TM bulging. Nose: no lesions on external nose, sinus tenderness, nasal discharge--purulent. Lips, Teeth, and Gums: no mouth or lip ulcers, no bleeding gums, normal dentition. Oropharynx: moist mucous membranes, no erythema, [...] Spleen: non-tender, no splenomegaly. Hernia: none palpable Neurologic: Gait and Station: normal gait, normal station. Cranial Nerves: grossly intact. Sensation: grossly intact, monofilament test intact. Reflexes: DTRs 2+ bilaterally throughout. Coordination and Cerebellum: nqjqde-it-mblq intact, no tremor Skin: Inspection and palpation: no rash, no lesions, no ulcer, no abnormal nevi, no induration, no nodules, good turgor, no jaundice. Nails: normal Back: Thoracolumbar Appearance: normal curvature
--- OUTSIDE RECORDS SUMMARY | 2018-10-15 16:14 | XMS REPORT | Encounter Summary ---
:1945 Author Care Team Providers Name Role Phone Celsa Maloney Primary Care Provider [phone] Reason for Visit Chronic pain; Otitis media; Pain; E.R. Follow Up Visit Instructions 1. Otitis media 2. Chronic pain 3. Urinary tract infectious disease Macrobid 100 mg capsule urinalysis, dipstick Discussion Note: None recorded.Patient educational handouts: No information available. Plan of Care Patient Instructions Advised to follow up with pain management doctor regarding worsening right hip pain . Increase water to 2-3 L per day . Reminders Provider Appointments Any 30 NIKOLAS Grimm 08/03/2018 1:30PM Lab Urinalysis, In-House Results Dipstick 06/30/2018 Referral None recorded. Procedures None recorded. Surgeries [...] Take one tablet by mouth every morning fluoxetine 40 mg capsule Take 1 capsule [...] 1 tablet every day by oral route. jksfeuai-rjdjubjng-qxgyhhaqs 3.5 mg-10,000 unit/mL-1 % ear drops,susp INSTILL 4 DROPS INTO AFFECTED EAR(S) BY OTIC ROUTE 3 TIMES PER DAY nitroglycerin 0.4 mg sublingual tablet potassium chloride ER 10 mEq capsule,extended release potassium chloride ER 10 mEq tablet,extended release(part/cryst) pravastatin 20 mg tablet Voltaren 1 % topical gel Medications Administered None recorded. Vitals Height Weight BMI Blood Pressure 67 in 142 lbs 9.6 oz 22.3 kg/m2 97/62 mm[Hg] Lab Results None recorded. Allergies Code Code System Name Reaction Severity Status Onset 737477 RxNorm Bactrim Rash Moderate to Active Severe [...] Heavy Tobacco Smoker (1/2 PPD) Past Encounters 06/30/2018 Otitis Media; Chronic Pain; Urinary Tract Infectious Disease NIKOLAS Grimm: [address] [place] [address], [address], [place] [address], Ph. History of Present Illness Musculoskeletal Pain Reported By: Patient HPI: Location: pain radiating to the buttocks, pain radiating to the legs right, right hip. Quality: dull. Severity: worsening, interference with sleep, interference with work, pain level with meds 6-7/10, pain level without meds 10/10. Duration: present for 6-12 months. Timing: constant. Context: unusual activity, prior back problems, used medication for back pain, had evaluations by back specialist. Aggravating factors: movement/positioning, bending over, twisting. Associated Symptoms: no fever, no weak limbs, no tingling, no numbness of the legs/feet, on incontinence. ADL (Activities of Daily Living) improve with medication Dysuria Reported By: Patient HPI: Quality: burning, pressure. Severity: worsening, moderate, pain level 4-5/10. Duration: constant; past 2 days. Timing: gradual. Context: no prior history of STDs, no known exposure to STD. Associated Symptoms: no fever, no blisters on genitals, no rash on genitals, no blood in the urine, no flank pain, hesitancy, smaller urine stream Note: states her does feel better completed all antibiotics , I have pain with burning sensation when urinating , I have constant pain in my right hip . Review of Systems None recorded. Physical Exam General Adult Exam - Female Reported By: Patient Constitutional: General Appearance: well-developed, too thin. Level of Distress: moderate distress. Ambulation: limited ambulation, ambulation with cane ENMT: Ears: no lesions on external ear, EACs clear, TMs clear, TM mobility normal. Hearing: no hearing loss. Nose: no lesions on external nose, nares patent, no septal deviation, nasal passages clear, no sinus tenderness, no nasal discharge. Lips, Teeth, and Gums: no mouth or lip ulcers, no bleeding gums, poor dentition. Oropharynx: moist mucous membranes, no erythema, no exudates, tonsils not enlarged Cardiovascular: Apical Impulse: not displaced. Heart Auscultation: [...] no bony abnormalities, no contractures, no malalignment, tenderness. Extremities: no cyanosis, no edema, no varicosities, no palpable cord
--- OUTSIDE RECORDS SUMMARY | 2018-10-15 16:14 | XMS REPORT | Continuity of Care Document ---
:1945 Author Organization [facility] Address [address] [place] [address] Phone Unavailable Care Team Providers Name Role Phone KADI CHAVES Primary Care Physician Insurance Providers Guarantor Kelsey Gordillo Address [address] [place] [address] Email NO EMAIL Payer Medicare Policy Number [id number] Subscriber's Name Kelsey Gordillo Relationship Self / Same As Patient Group Number NA Group Name NA Effective Date 07 Payer Medicaid Policy Number [id number] Subscriber's Name Kelsey Gordillo Relationship Self / Same As Patient Group Number NA Group Name NA Advance Directives Directive Response Recorded Date/Time Advance Directives No 10/01/15 10:34am Advance Directive on File No 09/30/18 5:34pm Directive to Physicians/Living Will No 10/01/15 10:34am Health Care Proxy No 10/01/15 10:34am Organ Donor No 10/01/15 10:34am Medical Power of Cco No 10/01/15 10:34am Chief Complaint and Reason for Visit Chief Complaint Chest Pain Reason for Visit COPD exacerbation Chest pain Problems Medical Problem Onset Date Status COPD exacerbation Unknown Acute Chest pain Unknown Acute Chest pain, rule out acute myocardial infarction Unknown Acute Hypomagnesemia Unknown Acute Left against medical advice Unknown Acute Left shoulder strain Unknown Acute Otitis externa Unknown Right otitis media Unknown Seasonal allergies Unknown Sebaceous cyst Unknown Sinusitis Unknown URI (upper respiratory infection) Unknown Acute [...] Route Directions Days Qty Instructions Start Date Albuterol 2 Puff RESPIRATORY Every 4-6 30 1 09/30/ (Ventolin Hfa *) (INHALATION) Hours As Days Inhaler 19 90 Mcg/Act Inh Needed as needed for Wheezing / Shortness Of Breath Aspirin (Aspirin 1 Tab ORAL Daily 30 *) 81 Mg Tab Tablet Budesonide/Formo 2 Puff RESPIRATORY Twice A Day 30 1 Inh 09/30/ terol 160 Mcg* (INHALATION) for Unknown Days 19 (Symbicort 160 Mcg/4.5 Mcg *) 1 Aer Aer Bupropion Hcl 1 Tab ORAL Twice A Day (Bupropion Hcl Sr*) 100 Mg Tab Buspirone Hcl 10 Mg ORAL Twice A Day (Buspar *) 10 Mg Tab Carvedilol 25 Mg ORAL Twice A Day (Coreg *) 25 Mg Tab Cyanocobalamin 50 Mcg ORAL Once Daily (Vitamin B12 100 Mcg) 100 Mcg Tab Digoxin (Digox) 1 Tab ORAL Daily for 30 01/30/ 125 Mcg Tab Afib Tablet 17 Fluoxetine Hcl 40 Mg ORAL Daily (Prozac 40 Mg *) 40 Mg Cap Furosemide 40 Mg ORAL Daily (Lasix 20 Mg) 20 Mg Tab Glipizide 1 Tab ORAL Twice Daily (Glucotrol *) 10 Before Meals Mg Tab Hydrocodone-Acet 1 Tab ORAL Q 8 Hrs Prn aminophen 10/325MG* ([place] 10/325 Mg *) 1 Tab Tab Ibuprofen-Famoti 1 Tab ORAL Once Daily 90 dine (Duexis Tablet 800/26.6 Mg) 1 Tab Tab Lisinopril 20 Mg ORAL Daily (Prinivil 20 Mg*) 20 Mg Tab Meclizine Hcl 1 Tab ORAL Three Times 30 90 (Meclizine Hcl A Day Days Tablet 25 Mg) 25 Mg Tab Methocarbamol 1 Tab ORAL Twice A Day 60 (Robaxin 500 as needed Tablet Mg*) 500 Mg Tab for Muscle Spasms Multiple 1 Tab ORAL Once Daily Vitamins W/ Minerals * (Womens Multi *) Multi Cap Pancrelipase 2 Cap ORAL Three Times (Lipase-Protease A Day - (Creon 12,000 Unt) 12,000 Unt Cap Potassium 20 Meq ORAL Daily Chloride (Klor-Con *) 10 Meq Tab Pravastatin * [...] 99 Mg Tab, 99 Mg Oral Warfarin Sodium (Coumadin 5 Mg *) Daily Discontinued 5 Mg Tab, 5 Mg Oral Zolpidem Tartrate (Ambien*) 10 Mg Once Daily At Bedtime Discontinued Tab, 10 Mg Oral Social History Social History Response Recorded Date/Time Onset Date Status Problem Hx Alcohol Use No 07/06/2018 9:34am Not Applicable Not Applicable Hx Physical Abuse No 09/30/2018 5:34pm Not Applicable Not Applicable 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 Plan of Care Discharge Date 09/30/18 8:32pm Instructions/Education Provided Nonspecific Chest Pain, Dnir-[id number] Chronic Obstructive Pulmonary Disease Exacerbation, Iiyq-tz-Qefr Forms Provided Portal Welcome Letter Prescriptions See Medication Section Referrals KADI CHAVES Address: [address] [place], [place] [id number] Additional Instructions/Education USE INHALERS DIRECTED. CONTINUE ALL HOME MEDICATIONS PRESCRIBED. FOLLOW UP WITH YOUR PRIMARY CARE PROVIDER IN 2-3 DAYS RETURN TO THE ER IF YOUR SYMPTOMS WORSEN Functional Status No functional status information available. Allergies, Adverse Reactions, Alerts Allergen Type Severity Reaction Status Last Updated Sulfacetamide ([id number]) Allergy Severe Active 05/01/15 Sulfamethoxazole w/Trimethoprim Allergy Severe Active 05/01/15 ([id number]) Immunizations No immunization information available. Vital Signs Acute Vital Signs Vital Response Date/Time Blood Pressure 139/85 mm Hg 09/30/2018 8:35pm Pulse Pulse Rate (adult) 70 beats per minute (60 - 100) 09/30/2018 8:35pm Respiratory Rate 18 breaths per minute (10 - 24) 09/30/2018 8:35pm Temperature Source Oral 09/30/2018 8:35pm Height 5 ft 6 in 09/30/2018 5:34pm Weight 133 lb 09/30/2018 5:34pm Body Mass Index 21.5 kg/m^2 09/30/2018 5:34pm Results Laboratory Results Test Name Result Units Flags Reference Collection Result Comments Date/Time Date/Time White Blood Count 6.8 K/ul 4.0-11.5 09/30/2018 09/30/2018 5:40pm 5:52pm Red Blood Count 4.21 M/ul 3.80-5.20 09/30/2018 09/30/2018 5:40pm 5:52pm Hemoglobin 12.7 g/dL 10.5-15.7 09/30/2018 09/30/2018 5:40pm 5:52pm Hematocrit 39.2 % 34.0-50.0 09/30/2018 09/30/2018 5:40pm 5:52pm Mean Corpuscular 93.1 fl 86-100 09/30/2018 09/30/2018 Volume 5:40pm 5:52pm Mean Corpuscular 30.2 pg 26.2-33.4 09/30/2018 09/30/2018 Hemoglobin 5:40pm 5:52pm Mean Corpuscular 32.4 g/dL 30-34 09/30/2018 09/30/2018 Hemoglobin Concent 5:40pm 5:52pm Red Cell 12.4 % 12.0-15.5 09/30/2018 09/30/2018 Distribution Width 5:40pm 5:52pm Platelet Count 185 K/uL 165-450 09/30/2018 09/30/2018 5:40pm 5:52pm Mean Platelet 10.4 fL 9.4-12.6 09/30/2018 09/30/2018 Volume 5:40pm 5:52pm Neutrophils (%) 58.1 % 44.4-80.1 09/30/2018 09/30/2018 (Auto) 5:40pm 5:52pm Immature 0.4 % 0.0-0.4 09/30/2018 09/30/2018 Granulocyte % 5:40pm 5:52pm (Auto) Lymphocytes (%) 26.8 % 10.0-50.0 09/30/2018 09/30/2018 (Auto) 5:40pm 5:52pm Monocytes (%) 10.4 % 3.6-12.0 09/30/2018 09/30/2018 (Auto) 5:40pm 5:52pm Eosinophils (%) 3.7 % 0.0-5.4 09/30/2018 09/30/2018 (Auto) 5:40pm 5:52pm Basophils (%) 0.6 % 0.1-1.2 09/30/2018 09/30/2018 (Auto) 5:40pm 5:52pm Neutrophils # 3.96 K/uL 1.56-6.13 09/30/2018 09/30/2018 (Auto) 5:40pm 5:52pm Absolute Immature 0.0 K/uL 0.0-0.03 09/30/2018 09/30/2018 Granulocyte (auto 5:40pm 5:52pm Lymphocytes # 1.8 K/uL 1.18-3.74 09/30/2018 09/30/2018 (Auto) 5:40pm 5:52pm Monocytes # (Auto) 0.71 K/uL 0.24-0.86 09/30/2018 09/30/2018 5:40pm 5:52pm Eosinophils # 0.25 K/uL 0.04-0.36 09/30/2018 09/30/2018 (Auto) 5:40pm 5:52pm Basophils # (Auto) 0.04 K/uL 0.01-0.08 09/30/2018 09/30/2018 5:40pm 5:52pm Nucleated Red 0 /100 WBC 0-0.2 09/30/2018 09/30/2018 Blood Cells % 5:40pm 5:52pm Nucleated Red 0 K/uL 0 09/30/2018 09/30/2018 Blood Cells # 5:40pm 5:52pm Prothrombin Time 11.5 SECONDS 10.3-12.3 09/30/2018 09/30/2018 5:40pm 6:07pm THERAPEUTIC LEVEL: 1.5 to 1.9 times normal range of PT Prothromb Time 1.05 09/30/2018 09/30/2018 International 5:40pm 6:07pm Recommended therapeutic range for patients receiving Ratio warfarin (coumadin) therapy: INR is 2.0 to 3.0 Recommended range for patients with mechanical prosthetic heart valves: INR is 2.5 to 3.5 Activated Partial 31.9 SECONDS 22.5-37.0 09/30/2018 09/30/2018 Thromboplast Time 5:40pm 6:07pm Random Glucose 154 mg/dL H 82-115 09/30/2018 09/30/2018 5:40pm 6:06pm Blood Urea 11 mg/dL 8-09/30/2018 09/30/2018 Nitrogen 5:40pm 6:06pm Serum Osmolality 284 280-300 09/30/2018 09/30/2018 5:40pm 6:06pm Creatinine 0.7 mg/dL 0.50-0.90 09/30/2018 09/30/2018 5:40pm 6:06pm Glomerular > 60.00 09/30/2018 09/30/2018 GFR RESULTS ARE REPORTED IN mL/min/1.73m2. Filtration Rate 5:40pm 6:06pm Calc Normal GFR: >60mL/min Moderately decreased GFR: 30-59 mL/min Severely decreased GFR: 15-29 mL/min Kidney Failure (or Dialysis): <15 mL/min The calculated eGFR is not valid for patients younger than 18 years or older than 75 years. BUN/Creatinine 15.7 1209/30/2018 09/30/2018 Ratio 5:40pm 6:06pm Sodium Level 141 mmol/L 135-145 09/30/2018 09/30/2018 5:40pm 6:06pm Potassium Level 3.7 mmol/L 3.5-5.2 09/30/2018 09/30/2018 5:40pm 6:06pm Chloride Level 100 mmol/L 98-108 09/30/2018 09/30/2018 5:40pm 6:06pm Carbon Dioxide 28 mmol/L 21-32 09/30/2018 09/30/2018 Level 5:40pm 6:06pm Anion Gap 16.7 mEq/L 01-2809/30/2018 09/30/2018 5:40pm 6:06pm Calcium Level 9.4 mg/dL 8.8-10.2 09/30/2018 09/30/2018 5:40pm 6:06pm Total Protein 7.0 g/dL 6.6-8.7 09/30/2018 09/30/2018 5:40pm 6:06pm Albumin 4.3 g/dL 3.5-5.2 09/30/2018 09/30/2018 5:40pm 6:06pm Globulin 2.7 gm/dL 09/30/2018 09/30/2018 5:40pm 6:06pm Albumin/Globulin 1.6 >1.0 09/30/2018 09/30/2018 Ratio 5:40pm 6:06pm Total Bilirubin < 0.3 mg/dL 0.0-1.2 09/30/2018 09/30/2018 5:40pm 6:06pm Aspartate Amino 18 U/L 15-32 09/30/2018 09/30/2018 Transf (AST/SGOT) 5:40pm 6:06pm Alanine 13 U/L 0-33 09/30/2018 09/30/2018 Aminotransferase 5:40pm 6:06pm (ALT/SGPT) JU-Zxq-T-Type 2011 pg/mL H 0-125 09/30/2018 09/30/2018 Natriuretic 5:40pm 6:17pm Peptide Total Alkaline 60 U/L 35-105 09/30/2018 09/30/2018 Phosphatase 5:40pm 6:06pm Creatine Kinase 37 U/L 20-180 09/30/2018 09/30/2018 7:14pm 7:38pm Troponin I < 0.30 ng/mL 0.0-0.5 09/30/2018 09/30/2018 Published clinical studies have shown elevations of cTnI in 7:14pm 7:39pm patients with myocardial injury, as seen in unstable angina pectoris, cardiac contusions, and heart transplants. Elevations have also been seen in patients with rhabdomyolysis and polymyositis. Elevated troponin levels point to myocardial injury, but are not necessarily indicative of an ischemic mechanism. The term RI should be used when there is evidence [...] examination and other findings. Creatine Kinase MB < 1.0 ng/ml 0.0-3.6 09/30/2018 09/30/2018 7:14pm 7:39pm DIAGNOSTIC CITERIA: CKMB CKMB RELATIVE INDEX SUGGESTIVE OF NON-AMI < or=5 N/A GARVIN ZONE (INCONCLUSIVE) > 5 < or=4 SUGGESTIVE OF AMI >5 > 4 Procedures Procedure Status Date Provider(s) X-RAY EXAM OF KNEE 3 Completed 08/03/18 ROUTINE VENIPUNCTURE Completed 08/03/18 METABOLIC PANEL TOTAL CA Completed 08/03/18 ASSAY OF NATRIURETIC PEPTIDE Completed 08/03/18 OUTPATIENT CLINIC VISIT Completed 08/14/18 X-RAY EXAM HIP UNI 2-3 VIEWS Completed 08/19/18 X-ray of chest, single view Completed 09/30/18 SKYLER WHITE MD Encounters Encounter Location Arrival/Admit Date Discharge/Depart Date Attending Provider Registered [place] 09/30/18 5:12pm SKYLER WHITE MD Emergency Room [facility] Registered [place] 08/19/18 2:08pm Kirk TRIMBLE MD Medical Ctr Registered [place] 08/14/18 2:23pm Juan TRIMBLE [facility] FRANCA Estrada APRN [facility] CHIEF CLERK-BC Registered [place] 08/03/18 2:42pm KADI CHAVES [facility] Recent Diagnosis
--- OUTSIDE RECORDS SUMMARY | 2018-10-15 16:15 | XMS REPORT | Continuity of Care Document ---
:1945 Author Organization [facility] Address [address] [place] [address] Phone Unavailable Care Team Providers Name Role Phone [place] Primary Care Physician Insurance Providers Guarantor Kelsey Gordillo Address [address] [place] [address] Email NO EMAIL Payer Medicare Policy Number [id number] Subscriber's Name Kelsey Gordillo Relationship Self / Same As Patient Group Number NA Group Name NA Effective Date 07 Payer Medicaid Policy Number [id number] Subscriber's Name Kelsey Gordillo Relationship Self / Same As Patient Group Number NA Group Name NA Advance Directives Directive Response Recorded Date/Time Advance Directives No 10/01/15 10:34am Advance Directive on File No 10/12/18 11:15am Directive to Physicians/Living Will No 10/01/15 10:34am Health Care Proxy No 10/01/15 10:34am Name of Surrogate/Decision Maker NEHEMIAS WRAY- DAUGHTER 10/06/18 11:30am Organ Donor No 10/01/15 10:34am Medical Power of Baker Test No 10/01/15 10:34am Patient/Family Given Education Material No 10/12/18 11:15am R/T Directives? Chief Complaint and Reason for Visit Chief Complaint [id number],M16.9 Reason for Visit Status post total replacement of right hip Problems Medical Problem Onset Date Status Chest pain, rule out acute myocardial infarction Unknown Acute Hypomagnesemia Unknown Acute Left against medical advice Unknown Acute Left shoulder strain Unknown Acute Otitis externa Unknown Right otitis media Unknown Seasonal allergies Unknown Sebaceous cyst Unknown Sinusitis Unknown URI (upper respiratory infection) Unknown Acute Weakness Unknown Acute Surgical Problem Onset Date Status Status post total replacement of right hip Unknown Past Problems Medical Problem Onset Date Status Abrasion of left forearm, initial encounter Unknown Acute Altered mental status Unknown Resolved Arthralgia of shoulder region, left Unknown Acute Bronchitis Unknown Acute CHF exacerbation Unknown Acute COPD exacerbation Unknown Acute COPD exacerbation Unknown Acute Chest pain Unknown Acute Chronic left shoulder pain Unknown [...] Route Directions Days Qty Instructions Start Date Acetaminophen 500 Mg ORAL Every 6 (Tylenol *) 500 Hours As Mg Tab Needed Albuterol 2 Puff RESPIRATORY Every 4-6 30 1 Inhaler 09/30/ (Ventolin Hfa (INHALATION) Hours As Days 19 *) 90 Mcg/Act Needed as Inh needed for Wheezing / Shortness Of Breath Albuterol/Iprat 1 Puff ORAL Twice Daily ropium As Needed (Combivent Respimat 120 Mcg *) Aer Apixaban 2.5 Mg ORAL Twice A Day 30 60 Tablet (Eliquis *) 2.5 Days Mg Tab Aspirin 1 Tab ORAL Daily 30 Tablet (Aspirin *) 81 Mg Tab Budesonide/Form 2 Puff RESPIRATORY Twice A Day 30 1 Inh 09/30/ oterol 160 Mcg* (INHALATION) for Unknown Days 19 (Symbicort 160 Mcg/4.5 Mcg *) 1 Aer Aer Buspirone Hcl 10 Mg ORAL Twice A Day (Buspar *) 10 Mg Tab Carvedilol 25 Mg ORAL Twice A Day (Coreg *) 25 Mg Tab Diclofenac TOPICAL Twice A Day Sodium (Topical) (Voltaren) 1 % Gel Digoxin 1 Tab ORAL Daily 30 30 Tablet (Digitek) 0.125 Days Mg Tab Fenofibrate 1 Tab ORAL Once Daily (Fenofibrate 145 Mg *) 145 Mg Tab Fluoxetine Hcl 40 Mg ORAL Daily (Prozac 40 Mg *) 40 Mg Cap Furosemide 40 Mg ORAL Daily (Lasix 20 Mg) 20 Mg Tab Gabapentin 300 Mg ORAL Three Times (Neurontin *) A Day 300 Mg Cap Glipizide 1 Tab ORAL Twice Daily (Glucotrol *) Before Meals 10 Mg Tab Hydrocodone-Ranjit 1 Tab ORAL Four Times 30 60 Tablet taminophen Daily as Days 10/325MG * needed for ([place] 10/325MG Pain *) 1 Tab Tab Lisinopril 20 Mg ORAL Daily (Prinivil 20 Mg*) 20 Mg Tab Meclizine Hcl 1 Tab ORAL Three Times 30 90 Tablet (Meclizine Hcl A Day Days 25 Mg) 25 Mg Tab Melatonin 1 Cap ORAL Once Daily 30 30 Cap (Melatonin 10 At Bedtime Days Mg) 10 Mg Cap for Sleep Methocarbamol 1 Tab ORAL Twice A Day 60 Tablet (Robaxin 500 as needed Mg*) 500 Mg Tab for Muscle Spasms Pancrelipase 2 Cap ORAL Three Times (Lipase-Proteas A Day e- (Creon 12,000 Unt) 12,000 Unt Cap Potassium 10 Meq ORAL Daily Chloride (Micro-K 10 Meq *) 10 Meq Cap Pravastatin * 40 Mg ORAL Once Daily (Pravachol 20 At Bedtime Mg*) 20 Mg Tab Past Home Medications Medication Directions Ordered Status Apixaban (Eliquis *) 2.5 Mg Tab, Once Daily Discontinued 2.5 Mg Oral Aspirin (Asa 325 Mg*) 325 Mg Tab, Daily Discontinued 325 Mg Oral Benazepril Hcl (Lotensin 10 Mg*) Daily Discontinued 10 Mg Tab, Unknown Dose Oral Bupropion Hcl (Bupropion Hcl Sr*) Twice A Day Discontinued 100 Mg Tab, 1 Tab Oral Cyanocobalamin (Vitamin B12 100 Once Daily Discontinued Mcg) 100 Mcg Tab, 50 Mcg Oral Cyclobenzaprine Hcl (Flexeril *) Bedtime as needed for Muscle Discontinued 10 Mg Tab, 10 Mg Oral Spasms Digoxin (Digox) 125 Mcg Tab, 1 Tab Daily for Afib 01/30/17 Discontinued Oral Digoxin (Lanoxin 0.25 Mg*) 0.25 Mg Daily Discontinued Tab, 250 Mcg Oral Doxycycline Hyclate (Vibramycin *) Twice A Day for Infection 03/13/18 Discontinued 100 Mg Tab, 1 Tab Oral Gabapentin (Neurontin *) 300 Mg Three Times A Day Discontinued Cap, 300 Mg Oral Gemfibrozil (Lopid *) 600 Mg Tab, Twice A Day Discontinued 1 Tab Oral Hydrocodone-Acetaminophen Q 8 Hrs Prn Discontinued 10/325MG* ([place] 10/325 Mg *) 1 Tab Tab, 1 Tab Oral Ibuprofen (Motrin *) 200 Mg Cap, 2 As Needed as needed for Pain Discontinued Tab Oral Ibuprofen-Famotidine (Duexis Once Daily Discontinued 800/26.6 Mg) 1 Tab Tab, 1 Tab Oral Lisinopril (Prinivil 10 Mg*) 10 Mg Daily Discontinued Tab, 10 Mg Oral Metoprolol Tartrate (Lopressor *) Daily Discontinued 50 Mg Tab, 50 Mg Oral Multiple Vitamins W/ Minerals * Once Daily Discontinued (Womens Multi *) Multi Cap, 1 Tab Oral Pancrelipase (Lipase-Protease- Three Times A Day Discontinued (Creon 3,000 Unt) 3,000 Unit Cap, Oral Potassium Chloride (Klor-Con *) 10 Daily Discontinued Meq Tab, 20 Meq Oral Potassium Gluconate (Potassium *) Daily Discontinued 99 Mg Tab, 99 Mg Oral Pravastatin * (Pravachol 20 Mg*) Daily Discontinued 20 Mg Tab, 20 Mg Oral Warfarin Sodium (Coumadin 5 Mg *) Daily Discontinued 5 Mg Tab, 5 Mg Oral Zolpidem Tartrate (Ambien*) 10 Mg Once Daily At Bedtime Discontinued Tab, 10 Mg Oral Social History Social History Response Recorded Date/Time Onset Date Status Problem Hx Alcohol Use No 10/12/2018 11:15am Not Applicable Not Applicable Hx Physical Abuse No 10/12/2018 11:15am Not Applicable Not Applicable 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 Plan of Care Discharge Date 10/14/18 4:58pm Disposition PATIENT DISCHARGE HOME OR SELF Instructions/Education Provided Total Hip Replacement, Hgsx-os-[place] Acetaminophen; Hydrocodone tablets or capsules Acetaminophen; Codeine tablets Forms Provided Portal Welcome Letter Prescriptions See Medication Section Additional Instructions/Education APPOINTMENT AT [facility] FOR PHYSICAL THERAPY ON Thursday10/15/18 AT 12:30PM Care Plan and Goals -OK TO DC IV AND DC HOME -FOLLOW-UP WITH PCP IN 1-2 WEEKS -FOLLOW-UP WITH Orthopedics IN 1-2 WEEKS -PLEASE MAKE SURE ALL DIAGNOSTIC STUDIES ARE AVAILABLE AND HAVE BEEN REVIEWED WITH PATIENT PRIOR TO DISCHARGE -RETURN TO THE ER IF symptoms worsens Functional Status No functional status information available. Allergies, Adverse Reactions, Alerts Allergen Type Severity Reaction Status Last Updated Sulfacetamide ([id number]) Allergy Severe Active 05/01/15 Sulfamethoxazole w/Trimethoprim Allergy Severe Active 05/01/15 ([id number]) Immunizations No immunization information available. Vital Signs Acute Vital Signs Vital Response Date/Time Blood Pressure 91/63 mm Hg 10/14/2018 11:59am Pulse Pulse Rate (adult) 76 beats per minute (60 - 100) 10/14/2018 11:59am Respiratory Rate 16 breaths per minute (10 - 24) 10/14/2018 11:59am Temperature Source Oral 10/14/2018 12:41pm Height 5 ft 6 in 10/06/2018 11:22am Weight 130.56 lb 10/14/2018 5:47am Body Mass Index 21.1 kg/m^2 10/14/2018 5:47am Results Laboratory Results Test Name Result Units Flags Reference Collection Result Comments Date/Time Date/Time Prothrombin Time 11.5 SECONDS 10.3-12.3 09/30/2018 09/30/2018 5:40pm 6:07pm THERAPEUTIC LEVEL: 1.5 to 1.9 times normal range of PT Prothromb Time 1.05 09/30/2018 09/30/2018 International 5:40pm 6:07pm Recommended therapeutic range for patients receiving Ratio warfarin (coumadin) therapy: INR is 2.0 to 3.0 Recommended range for patients with mechanical prosthetic heart valves: INR is 2.5 to 3.5 Activated 31.9 SECONDS 22.5-37.0 09/30/2018 09/30/2018 Partial 5:40pm 6:07pm Thromboplast Time Total Protein 7.0 g/dL 6.6-8.7 09/30/2018 09/30/2018 5:40pm 6:06pm Albumin 4.3 g/dL 3.5-5.2 09/30/2018 09/30/2018 5:40pm 6:06pm Globulin 2.7 gm/dL 09/30/2018 09/30/2018 5:40pm 6:06pm Albumin/Globulin 1.6 >1.0 09/30/2018 09/30/2018 Ratio 5:40pm 6:06pm Total Bilirubin < 0.3 mg/dL 0.0-1.2 09/30/2018 09/30/2018 5:40pm 6:06pm Aspartate Amino 18 U/L 15-32 09/30/2018 09/30/2018 Transf 5:40pm 6:06pm (AST/SGOT) Alanine 13 U/L 0-33 09/30/2018 09/30/2018 Aminotransferase 5:40pm 6:06pm (ALT/SGPT) ST-Vfn-R-Type 2011 pg/mL H 0-125 09/30/2018 09/30/2018 Natriuretic [...] indicative of an ischemic mechanism. The term GA should be used when there is evidence [...] clinical examination and other findings. Creatine Kinase < 1.0 ng/ml 0.0-3.6 09/30/2018 09/30/2018 MB 7:14pm 7:39pm DIAGNOSTIC CITERIA: CKMB CKMB RELATIVE INDEX SUGGESTIVE OF NON-AMI < or=5 N/A GARVIN ZONE (INCONCLUSIVE) > 5 < or=4 SUGGESTIVE OF AMI >5 > 4 White Blood 14.3 K/ul H 4.0-11.5 10/14/2018 10/14/2018 Count 3:50am 4:17am Red Blood Count 3.43 M/ul L 3.80-5.20 10/14/2018 10/14/2018 3:50am 4:17am Hemoglobin 10.5 g/dL 10.5-15.7 10/14/2018 10/14/2018 3:50am 4:17am Hematocrit 31.8 % L 34.0-50.0 10/14/2018 10/14/2018 3:50am 4:17am Mean Corpuscular 92.7 fl 86-100 10/14/2018 10/14/2018 Volume 3:50am 4:17am Mean Corpuscular 30.6 pg 26.2-33.4 10/14/2018 10/14/2018 Hemoglobin 3:50am 4:17am Mean Corpuscular 33.0 g/dL 30-34 10/14/2018 10/14/2018 Hemoglobin 3:50am 4:17am Concent Red Cell 12.4 % 12.0-15.5 10/14/2018 10/14/2018 Distribution 3:50am 4:17am Width Platelet Count 156 K/uL L 165-450 10/14/2018 10/14/2018 3:50am 4:17am Mean Platelet 10.4 fL 9.4-12.6 10/14/2018 10/14/2018 Volume 3:50am 4:17am Neutrophils (%) 75.4 % 44.4-80.1 10/14/2018 10/14/2018 (Auto) 3:50am 4:17am Immature 0.6 % H 0.0-0.4 10/14/2018 10/14/2018 Granulocyte % 3:50am 4:17am (Auto) Lymphocytes (%) 11.5 % 10.0-50.0 10/14/2018 10/14/2018 (Auto) 3:50am 4:17am Monocytes (%) 12.3 % H 3.6-12.0 10/14/2018 10/14/2018 (Auto) 3:50am 4:17am Eosinophils (%) 0.1 % 0.0-5.4 10/14/2018 10/14/2018 (Auto) 3:50am 4:17am Basophils (%) 0.1 % 0.1-1.2 10/14/2018 10/14/2018 (Auto) 3:50am 4:17am Neutrophils # 10.74 K/uL H 1.56-6.13 10/14/2018 10/14/2018 (Auto) 3:50am 4:17am Absolute 0.1 K/uL H 0.0-0.03 10/14/2018 10/14/2018 Immature 3:50am 4:17am Granulocyte (auto Lymphocytes # 1.6 K/uL 1.18-3.74 10/14/2018 10/14/2018 (Auto) 3:50am 4:17am Monocytes # 1.75 K/uL H 0.24-0.86 10/14/2018 10/14/2018 (Auto) 3:50am 4:17am Eosinophils # 0.02 K/uL L 0.04-0.36 10/14/2018 10/14/2018 (Auto) 3:50am 4:17am Basophils # 0.02 K/uL 0.01-0.08 10/14/2018 10/14/2018 (Auto) 3:50am 4:17am Nucleated Red 0 /100 WBC 0-0.2 10/14/2018 10/14/2018 Blood Cells % 3:50am 4:17am Nucleated Red 0 K/uL 0 10/14/2018 10/14/2018 Blood Cells # 3:50am 4:17am Urine Color YELLOW 10/13/2018 10/13/2018 9:45pm 10:05pm Urine Appearance HAZY A CLEAR 10/13/2018 10/13/2018 9:45pm 10:05pm Urine Glucose 1+ (100 H NEGATIVE 10/13/2018 10/13/2018 (UA) mg/dL) 9:45pm 10:05pm Urine Bilirubin NEGATIVE NEGATIVE 10/13/2018 10/13/2018 9:45pm 10:05pm Urine Ketones NEGATIVE NEGATIVE 10/13/2018 10/13/2018 9:45pm 10:05pm Urine Specific 1.015 1.003-1.03 10/13/2018 10/13/2018 [place] 0 9:45pm 10:05pm Urine Blood NEGATIVE NEGATIVE 10/13/2018 10/13/2018 9:45pm 10:05pm Urine pH 5.500 5-9 10/13/2018 10/13/2018 9:45pm 10:05pm Urine Protein NEGATIVE NEGATIVE 10/13/2018 10/13/2018 9:45pm 10:05pm Urine 0.2 E.U./dL 0.2-1.0 10/13/2018 10/13/2018 Urobilinogen 9:45pm 10:05pm Urine Nitrate NEGATIVE NEGATIVE 10/13/2018 10/13/2018 9:45pm 10:05pm Urine Leukocyte NEGATIVE NEGATIVE 10/13/2018 10/13/2018 Esterase 9:45pm 10:05pm Urine RBC RARE /hpf 0-5 10/13/2018 10/13/2018 9:45pm 10:05pm Urine WBC 0-5 /hpf 0-5 10/13/2018 10/13/2018 9:45pm 10:05pm Urine Epithelial MORE THAN /hpf H 0-5 10/13/2018 10/13/2018 Cells 25/HPF 9:45pm 10:05pm Urine Bacteria TRACE /hpf None 10/13/2018 10/13/2018 Detect 9:45pm 10:05pm Urine Culture NO 10/13/2018 10/13/2018 Reflexed 9:45pm 10:05pm POC Capillary 190 mg/dL H 70.0 - 110 10/14/2018 10/14/2018 Blood Glucose 11:45am 11:46am (Chem) Random Glucose 161 mg/dL H 82-115 10/14/2018 10/14/2018 3:50am 4:46am Blood Urea 10 mg/dL 8-23 10/14/2018 10/14/2018 Nitrogen 3:50am 4:46am Serum Osmolality 280 280-300 10/14/2018 10/14/2018 3:50am 4:46am Creatinine 0.5 mg/dL 0.50-0.90 10/14/2018 10/14/2018 3:50am 4:46am Glomerular > 60.00 10/14/2018 10/14/2018 GFR RESULTS ARE REPORTED IN mL/min/1.73m2. Filtration Rate 3:50am 4:46am Calc Normal GFR: >60mL/min Moderately decreased GFR: 30-59 mL/min Severely decreased GFR: 15-29 mL/min Kidney Failure (or Dialysis): <15 mL/min The calculated eGFR is not valid for patients younger than 18 years or older than 75 years. BUN/Creatinine 20.0 12-10/14/2018 10/14/2018 Ratio 3:50am 4:46am Sodium Level 139 mmol/L 135-145 10/14/2018 10/14/2018 3:50am 4:46am Potassium Level 3.3 mmol/L L 3.5-5.2 10/14/2018 10/14/2018 3:50am 4:46am Chloride Level 101 mmol/L 98-108 10/14/2018 10/14/2018 3:50am 4:46am Carbon Dioxide 26 mmol/L 21-32 10/14/2018 10/14/2018 Level 3:50am 4:46am Anion Gap 15.3 mEq/L -10/14/2018 10/14/2018 3:50am 4:46am Calcium Level 9.3 mg/dL 8.8-10.2 10/14/2018 10/14/2018 3:50am 4:46am Digoxin Level 0.58 ng/mL L 0.8-2.0 10/14/2018 10/14/2018 A specimen should be collected at least 6 to 8 hours after 3:50am 4:57am drug administration. By this time, serum digoxin levels are expected to be in equilibrium with tissue levels and should correlate with pharmacologic effects. Microbiology Results Procedure Source Organism/Result Collection Result Result Status Date/Time Date/Time Blood Culture Blood SPECIMEN HAS BEEN 10/13/2018 10/13/2018 Preliminary RECEIVED IN LAB AND 6:56pm 7:00pm IS IN PROGRESS. Encounter Summary POS Created on: 10/05/2018 POS Kelsey Gordillo : 1945 Sex: Female Author Organization Unknown POS Address [address] [place] [address] Phone [phone] SP Care Team Providers Care Waxer Tender Name Role Phone POS Sb [place] Pac 3 [phone] SP Reason for Visit Follow Up Visit POS Instructions 1. Osteoarthritis of hip POS hip arthritis: care instructions SP osteoarthritis: care instructions SP total hip arthroplasty (SURG ) SP Discussion Note: None recorded. Plan of Care Reminders Provider POS Appointments FOLLOW-UP 10/21/2018 4:00PM NIKOLAS Grimm SP Lab None recorded. SP Referral None recorded. SP Procedures None recorded. SP Surgeries Total Hip Arthroplasty (SURG) 2018 [facility] ([facility]) SP Imaging None recorded. SP Medications Name Start Date POS aspirin 81 mg chewable tablet SP Chew 1 tablet every day by oral route. SP buspirone 10 mg tablet SP carvedilol 25 mg tablet SP Combivent Respimat 20 mcg-100 mcg/actuation solution for inhalation SP Creon 12,000-38,000-60,000 unit capsule, delayed release SP digoxin 125 mcg tablet SP Eliquis 2.5 mg tablet SP fenofibrate nanocrystallized 145 mg tablet SP TAKE ONE (1) TABLET(S) BY MOUTH EVERY MORNING. SP Flonase Allergy Relief 50 mcg/ actuation nasal spra y,suspension SP [place] 1 spray every day by intranasal route for 30 days. SP fluoxetine 40 mg capsule SP Take 1 capsule every day by oral route in the morning for 90 days. SP furosemide 40 mg tablet SP gabapentin 300 mg capsule SP Take 1 capsule 3 times a day by oral route for 28 days. SP glipizide 10 mg tablet SP hydrocodone 10 mg-acetaminophen 325 mg tablet SP lisinopril 20 mg tablet SP Take by oral route for 90 days. SP meclizine 25 mg tablet SP methocarbamol 500 mg tablet SP Take 1 tablet every day by oral route. SP lyajdajz-omfvzkrbm-hhjlrlebz 3.5 mg-10,000 unit/mL -1 % ear drops,susp SP INSTILL 4 DROPS INTO AFFECTED EAR(S) BY OTIC ROUTE 3 TIMES PER DAY SP nitroglycerin 0.4 mg sublingual tablet SP potassium chloride ER 10 mEq capsule,extended release SP potassium chloride ER 10 mEq tablet,extended release(part/cryst) SP pravastatin 20 mg tablet SP Symbicort 160 mcg-4.5 mcg/actuation HFA aerosol inhaler SP Ventolin HFA 90 mcg/actuation aerosol inhaler SP Voltaren 1 % topical gel SP Medications Administered None recorded. Vitals Height Weight BMI Blood Pressure POS 67 in 146 lbs 22.9 kg/m2 136/80 mm[Hg] SP Lab Results Date Name Specimen Result POS Description Value Range POS Address POS 09/30/2018 CK (Creatine Kinase), Total, Serum Normal Creatine Kinase 37 U/L 20-180 U/L Final [facility] (Lab): [address] [place] [address] 09/30/2018 Troponin I, Cardiac, Quant, Blood Normal Cardiac Tr oponin I <0.30 NG/mL 0.0-0.5 SP Final [facility] (Lab): [address] [place] [address] 09/30/2018 CK-mb, Blood Normal Mass Creatinine Kinase-mb <1.0 NG/mL 0 .0-3.6 NG/mL Final [facility] (Lab): [address] [place] [address] Allergies Code Code System Name Reaction Severity Status Onset POS [id number] RxNorm Bactrim Rash Moderate to Severe Active SP Problems Name Status Onset Date Margi rce POS POS Chronic Pain Active Encounter SP Otitis Media Active Encounter SP Sinusitis Active Encounter SP Bronchitis Active Encounter SP 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 Social History Tobacco Smoking Status Heavy Tobacco Smoker (1/2 PPD) POS Past Encounters 10/05/2018 POSOsteoarthritis of Hip Ana Laura Crews MD: [address] [facility] [address], [place] [address], Ph. [phone] 09/24/2018 SPPain in Right Lower Limb Mary Gabriela Turcios, MECHANICAL SYSTEMS DESIGN ENGINEER: [address] [facility], [address], [place] [address] , Ph. History of Present Illness None recorded. Review of Systems None recorded. Physical Exam Shoulder, Hip/ Pelvis POS Reported By: Patient SP Constitutional: General Appearance: too thin SP Psychiatric: Orientation: oriented to time, ezequiel ented to place, oriented to person; xray 2 viewss SP endstage o-a left shoulder will need arthroplasty when pTIENT DESIRES. Mood and Affect: active and alert, normal mood, normal affect Cardiovascular System: Arterial Pulses Right: radial nor mal, brachial normal. Edema Right: none. SP Left: none. Varicosities Right: no varicosities. Varicosities Left: no varicosities Lymph Nodes: Inspection/ Palpation Right: no cer vical LAD. Inspection/Palpation Left: no cervical LAD SP C-Spine/Neck: Active Range of Motion: flexion no rmal, extension normal, rotation normal, lateral SP normal, no crepitus; +neer + Hawkin _ relocation testing. Passive Range of Motion: flexion normal, extension normal, rotation normal, lateral flexion normal Shoulders: Inspection Right: no misalignment, no scapular winging, no atrophy, AC prominence normal, SPno erythema, no induration. Inspection Left: no misalignment, no scapular winging. Bony Palpation Right: no tenderness of the suprasternal notch, no tenderness of the sternoclavicular joint. Soft Tissue Palpation Right: tenderness of the supraspinatus, tenderness of the subacromial bursa, tenderness of the subdeltoid bursa. Stability Right: no dislocation, no laxity, sulcus sign negative, anterior relocation test negative Neurological System: Coordination: xpjebl-do-wcdr movem ent normal. Biceps Reflex Right: normal (2). SP Reflex Left: normal (2). Brachioradialis Reflex Right: normal (2). Sensation on the Right: ; xrays reveal end stage o-a right hip will place on diclfenac. Ankle Reflex Right : diminished (1) Lumbar Spine: Special Tests : supine straight leg raising test positive SP Hip/Pelvis Appearance: Inspection: no leg length discrepa ncy, right hip higher than left SP Hips: Passive Range of Motion Right: lopez ited. Strength Right: ; will send for cardiac clearance of SP right hip Procedures Procedure Status Date Provider(s) X-RAY EXAM HIP UNI 2-3 VIEWS Completed 08/19/18 EMERGENCY DEPT VISIT Completed 09/30/18 THER/PROPH/DIAG INJ IV PUSH Completed 09/30/18 X-RAY EXAM CHEST 1 VIEW Completed 09/30/18 COMPLETE CBC W/AUTO DIFF WBC Completed 09/30/18 CREATINE MB FRACTION Completed 09/30/18 CREATINE MB FRACTION Completed 09/30/18 ASSAY OF CK (CPK) Completed 09/30/18 ASSAY OF CK (CPK) Completed 09/30/18 PROTHROMBIN TIME Completed 09/30/18 THROMBOPLASTIN TIME PARTIAL Completed 09/30/18 ROUTINE VENIPUNCTURE Completed 09/30/18 ASSAY OF TROPONIN QUANT Completed 09/30/18 ASSAY OF TROPONIN QUANT Completed 09/30/18 COMPREHEN METABOLIC PANEL Completed 09/30/18 ASSAY OF NATRIURETIC PEPTIDE Completed 09/30/18 AIRWAY INHALATION TREATMENT Completed 09/30/18 ELECTROCARDIOGRAM TRACING Completed 09/30/18 Right Hip Total Replacement Completed 10/12/18 ANA LAURA CREWS MD X-ray of chest, single view Completed 09/30/18 SKYLER WHITE MD Pelvis x-ray Completed 10/12/18 ANA LAURA CREWS MD X-ray of chest, single view Completed 10/13/18 YADY ABEL MD Encounters Encounter Location Arrival/Admit Date Discharge/Depart Date Attending Provider Discharged [place] 10/12/18 5:54am 10/14/18 4:58pm AT[facility], [facility] Departed [place] 09/30/18 5:12pm 09/30/18 8:32pm SKYLER WHITE MD [facility] [place] [facility]
--- OUTSIDE RECORDS SUMMARY | 2018-10-15 16:15 | XMS REPORT | Encounter Summary ---
:1945 Author Care Team Providers Name Role Phone Sb De La Fuente Primary Care Provider [phone] Reason for Visit Follow Up Visit Instructions 1. Osteoarthritis of hip hip arthritis: care instructions osteoarthritis: care instructions total hip arthroplasty (SURG) Discussion Note: None recorded. Plan of Care Reminders Provider Appointments FOLLOW-UP NIKOLAS Grimm 10/21/2018 4:00PM Lab None recorded. Referral None recorded. Procedures None recorded. Surgeries Total Hip [place] Arthroplasty (SURG) 10/05/2018 [facility] ([facility]) Imaging None recorded. Medications Name Start Date [...] Flonase Allergy Relief 50 mcg/actuation nasal spray,suspension [place] 1 spray every day by intranasal route [...] 1 tablet every day by oral route. deejruar-blnrfhxqv-fsdnwnupv 3.5 mg-10,000 unit/mL-1 % ear drops,susp INSTILL 4 DROPS INTO AFFECTED EAR(S) BY OTIC ROUTE 3 TIMES PER DAY nitroglycerin 0.4 mg sublingual tablet potassium chloride ER 10 mEq capsule,extended release potassium chloride ER 10 mEq tablet,extended release(part/cryst) pravastatin 20 mg tablet Symbicort 160 mcg-4.5 mcg/actuation HFA aerosol inhaler Ventolin HFA 90 mcg/actuation aerosol inhaler Voltaren 1 % topical gel Medications Administered None recorded. Vitals Height Weight BMI Blood Pressure 67 in 146 lbs 22.9 kg/m2 136/80 mm[Hg] Lab Results Date Name Specimen Result Interpretation Description Value Range Status Address 09/30/2018 CK (Creatine Normal Creatine 37 U/L 20-180 Final [place] Kinase), Kinase U/L [facility] (Lab): [address] [place] [address] 09/30/2018 Troponin I, Normal Cardiac <0.30 0.0-0.5 Final [place] Cardiac, Troponin I NG/mL NG/mL [facility] ([facility]): [address] [place] [address] 09/30/2018 CK-mb, Blood Normal Mass <1.0 0.0-3.6 Final [place] Creatinine NG/mL NG/mL [facility] (Lab): [address] [place] [address] Allergies Code Code System Name Reaction Severity Status Onset 560294 RxNorm Bactrim Rash Moderate to Active Severe [...] Heavy Tobacco Smoker (1/2 PPD) Past Encounters 10/05/2018 Osteoarthritis of Hip Abram Crews MD: [address] [facility] [address], [place] [address], Ph. [phone] 09/24/2018 Pain in Right Lower Limb Mary Turcios APPLICATION MANAGER: [address] [facility], [address], [place] [address], Ph. History of Present Illness None recorded. [...] anterior relocation test negative Neurological System: Coordination: artvrm-sh-stox movement normal. Biceps Reflex Right: normal (2). [...]
[2018-10-15] MEDS ORDERED: ACETAMINOPHEN 500 MG TAB PO PRN (17:16)
[2018-10-15] MEDS ORDERED: ALBUTEROL IH PRN (17:37)
[2018-10-15] MEDS ORDERED: IPRATROPIUM IH PRN (17:37)
[2018-10-15] MEDS ORDERED: D50W 25 GM/50 ML SYRINGE IV PRN (17:56)
[2018-10-15] MEDS ORDERED: GLUCAGON 1 MG/VIAL IM PRN (17:56)
[2018-10-15] MEDS ORDERED: VENTOLIN HFA INHALER IH PRN (18:00)
[2018-10-15] MEDS: CARVEDILOL 25 MG TAB PO SCH (18:00)
[2018-10-15] MEDS ORDERED: BISACODYL 10 MG RECTAL SUPP PR PRN (19:09)
--- NOTE | 2018-10-15 19:11 | R.HP ---
FACILITY: [facility] ENCOUNTER DATE AND TIME: 10/15/2018 19:07 (CDT) MR#: [id number] NAME KELSEY GORDILLO ADDRESS: [place] [id number] CITY: [place] [address] PHONE: DATE OF : 1945 AGE: 72 SSN# [id number] GENDER: Female DEXTERITY Right-handed MARITAL STATUS RACE White PRE-HOSPITAL LIVING SETTING 01 - Home (private home/apt. board/care, assisted living, nursing home, transitional living) PRE-HOSPITAL LIVING WITH Alone ENCOUNTER PHYSICIAN: Dr. Edmar Garrett M.D. REFERRING DOCTOR: Dr. Abram Crews DATE OF ADMISSION: 10/15/2018 16:10 (CDT) REFERRING FACILITY [facility] HOME TYPE AND DETAILS: Type of home: mobile home # of steps to enter the residence: 0 # of steps within the residence: 0 # of levels in the residence: 1 ADMISSION DIAGNOSIS: Osteoarthritis of right hip ONSET DATE: 10/12/2018 PRIMARY DIAGNOSIS-RELATED SURGERIES: Right Total Hip Arthroplasty- performed by Dr. Abram Crews on 10/12/2018 SECONDARY/COMORBID DIAGNOSES (TIERED): - N/A COPD CHF DIABETES HYPERTENSION HISTORY OF PRESENT ILLNESS (HPI): Pt. is a 72 yo Right-handed white female. She elected for surgery, and on 10/12/2018 was admitted to [facility] for Right Total Hip Arthroplasty by Dr. Abram Crews. Pt. was admitted to the hospital on 10/15/2018 and underwent Orthopaedic Disorders(Unilateral Hip Rep lacement ()) by Dr.Dr. Abram Crews without any intraoperative complications. Her impairment category is Orthopaedic Disorders 08 - Unilateral Hip Replacement (51). Pre-morbidly, Pt. was independent/mod-I in Self-Care, Sphincter Control, Transfers Control, Locomotio n, Communication, and Social Cognition; and she had good Sphincter Control. Currently, she has deficits of Transfers Control, Locomotion, Communication, Social Cognition, Endura nce, Balance, Safety Awareness, and Self-Care. Pt. is now referred to [facility] for acute in-patient rehabilitation in order to maximize patient's functional independence in activities of daily living, strength, ROM, and mobi lity. Patient has realistic goal of being discharged at assistance level 6-Watson to reside at Home with Antwon lee. Kelsey Gordillo is a 72 old female that lives alone in a single jessica house. Patient was independent with ADLs and household ambulation. On 10/12/2018, her hip pain got to the point that she could not tolerate it and was admitted at [facility]. She is now medically stable but in need of 24-hour nursing, doctor supervision and oversite while receiving acti ve and ongoing intensive (PT, reasonably expected to participate in 3hours of therapy a day/15 hours per week and receive care with an intensive interdisciplinary approach. MEDICATION ALLERGIES: No Known Drug Allergies (NKDA) ENVIRONMENTAL ALLERGIES: - Substance Allergies None Known - Other Allergies None Known PAST MEDICAL HISTORY: CHF COPD DIABETES HYPERTENSION FAMILY HISTORY: Family history is not contributory. SOCIAL HISTORY: - Home Living Alone REVIEW OF SYSTEMS: - Gen No Chills Fatigue No Fever - Eyes No Double Vision No itchiness - ENMT No Difficulty Swallowing - CVS No Chest Discomfort No Chest Pain Fatigue No Weight Gain - Resp No Cough No Shortness of Breath - GI Continent No Abdominal Pain Constipation No Diarrhea - Continent No Kidney Pain No Painful Urination No Urinary Urgency - MSK Joint Pain Muscle Cramps Stiffness - Skin No Itching No Rash No Suspicious Lesions - Neuro Coordination Difficulty No Difficulty with Concentration No Memory Loss No Seizures Weakness - Psych No Anxiety No Depression No HIV Exposure No Persistent Infections No Seasonal Allergies - Endo No Cold/Heat Intolerance No Excessive Hunger No Excessive Thirst No Excessive Urination PHYSICAL EXAM - Gen Alert and awake Lying in bed No apparent distress Oriented to: person, time, and place - Skin Surgical site on right thigh shows good hemostasis. Normacephalic - Eyes No abnormalities - Neck No abnormalities - CVS RRR - Chest No abnormalities - Abd + bowel sounds - GI Soft Deferred - No abnormalities - Ext Mild postoperative edema in the right lower extremity - MSK 4+/5 weakness in right lower extremity - Neuro 4/5 strength right lower extremity - Psych No abnormalities VITAL SIGNS Temperature: 98.6 F SBP/DBP: 136/80 Pulse: 72 Resp: 20 NURSING: - Shower allowing shower - Lab Results blood Sugar Check ACHS - Skin care per protocol PRECAUTIONS: - Anterior Hip Precaution No abduction No active extension No adduction across midline No external rotation No hip flexion >90 degrees No internal rotation - Weight Bearing Precaution WBAT right LE ACTIVITIES OOB only with supervision FUNCTIONAL STATUS: - Self-Care A. Eating Ind Ind B. Grooming Ind Ind C. Bathing Ind Ind D. Dressing - Upper Ind Ind E. Dressing - Lower Ind Hayley F. Toileting Ind Hayley - Sphincter Control G: Bladder control Ind Ind H: Bowel control Ind Ind - Transfers Control I. Bed/Chair/Wheelchair Ind Hayley J. Toilet Ind Hayley K. Tub/Shower Ind Hayley - Locomotion L. Walk/Wheelchair (C) Ind modA L. Walk/Wheelchair (W) Ind sup M. Stairs Ind ADNO - Communication N. Comprehension (B) Ind Hayley O. Expression (B) Ind Hayley - Social Cognition P. Social Interaction Ind Hayley Q. Problem Solving Ind Hayley R. Memory Ind Hayley - Endurance Poor - Balance Poor - Safety Awareness Poor CURRENT FUNC. DEFICITS: Transfers Control, Locomotion, Communication, Social Cognition, Endurance, Balance, Safety Awareness, and Self-Care MEDICATIONS: - Other See attached MAR (Medication Administration Record) ASSESSMENT: Pt. is a 72 yo Right-handed white female.She elected for surgery, and on 10/12/2018 was admitted to [facility] for Right Total Hip Arthroplasty by Dr. Abram Crews.Pt. was admitted to the hospital on 10/15/2018 and underwent Orthopaedic Disorders(Unilateral Hip Replacement ()) by Dr.Dr. Abram Crews without any intraoperative complications.Her impairment category is Orthopaedi c Disorders 08 - Unilateral Hip Replacement ().Pre-morbidly, Pt. was independent/mod-I in Self- Care, Sphincter Control, Transfers Control, Locomotion, Communication, and Social Cognition; and she had good Sphincter Control.Currently, she has deficits of Transfers Control, Locomotion, Communicatio n, Social Cognition, Endurance, Balance, Safety Awareness, and Self-Care.Pt. is now referred to [facility] for acute in-patient rehabilitation in order to maximize patient's funct ional independence in activities of daily living, strength, ROM, and mobility.- Rehab Goal Patient has realistic goal of being discharged at assistance level 6-Watson to reside at Home with Antwon lee. Kelsey Gordillo is a 72 old female that lives alone in a single jessica house. Patient was independent with ADLs and household ambulation. On 10/12/2018, her hip pain got to the point that she could not tolerate it and was admitted at [facility]. She is now medically stable but in need of 24-hour nursing, doctor supervision and oversite while receiving acti ve and ongoing intensive (PT, reasonably expected to participate in 3hours of therapy a day/15 hours per week and receive care with an intensive interdisciplinary approach.REHAB PLAN: - Physical Therapy Decreased range of motion - to improve, our physical therapists will perform initial evaluation of pt 's status upon admission and devise an individualized program for increasing patient's Range of Motio n. Gait dysfunction - to improve, our physical therapists will perform initial evaluation of pt's status upon admission and devise an individualized program for Gait Training, and Wheel Chair mobility Inability to transfer - to improve, our physical therapists will perform initial evaluation of pt's s tatus upon admission and devise an individualized program for Bed mobility Need for home safety evaluation - to improve, our physical therapists will perform initial evaluation of pt's status upon admission and devise an individualized program for Home Evaluation Need in caregiver upon discharge - to improve, our physical therapists will perform initial evaluatio n of pt's status upon admission and devise an individualized program for Caregiver Training New precaution - to improve, our physical therapists will perform initial evaluation of pt's status [facility] admission and devise an individualized program for Patient precaution education Edema - to improve, our physical therapists will perform initial evaluation of pt's status upon admi ssion and devise an individualized program for Elevation Training, and Lymphedema Therapy Poor balance - to improve, our physical therapists will perform initial evaluation of pt's status upo n admission and devise an individualized program for Balance Training Poor endurance - to improve, our physical therapists will perform initial evaluation of pt's status [facility] admission and devise an individualized program for Endurance Training Weakness - to improve, our physical therapists will perform initial evaluation of pt's status upon ad mission and devise an individualized program for Aquatic Therapy, Neuromuscular Reeducation, and Stre ngthening Achieving independence - to improve, our physical therapists will perform initial evaluation of pt's status upon admission and devise an individualized program for Community Reintegration Activities - Occupational Therapy ADL deficits - to improve, our occupation therapists will perform initial evaluation of pt's status [facility] admission and devise an individualized program for Bathing, Bed mobility, Community Reintegration , Cooking, Dressing, Eating, Fine Motor Skills, Grooming, Homemaking, Kitchen Mobility, Laundry, Lida ent Education, Safety Awareness, Splinting - Positioning, Transfers(Toilet, Tub, Shower), and Wheel C hair Management Cognitive deficits - to improve, our occupation therapists will perform initial evaluation of pt's st atus upon admission and devise an individualized program for Cognition - orientation Need for healthcare liaison - to improve, our occupation therapists will perform initial evaluation of pt's s tatus upon admission and devise an individualized program for Caregiver Training Weakness - to improve, our occupation therapists will perform initial evaluation of pt's status upon admission and devise an individualized program for Aquatic Therapy, Balance, Endurance, UE ROM, and U E strengthening MEDICAL PLAN: - Anterior Hip Precaution No abduction No active extension No adduction across midline No external rotation No hip flexion >90 degrees No internal rotation - Diet - Liquid Texture Start Regular - Tube Feed Start N/A - Diet Type Start Regular - Posterior Hip Precaution No adduction across midline No external rotation No hip flexion >90 degrees No internal rotation No wheel chair propulsion - Lab Results blood Sugar Check ACHS - Weight Bearing Precaution WBAT right LE - Skin care per protocol - Other See attached MAR (Medication Administration Record) - Diet - Solid Texture Regular - Shower shower DISCHARGE PLAN: - Estimated Length of Stay (days) 9. - Consensus on plan Discharge plan has been discussed with primary caregiver. Patient/Family is in agreement with the niels n. Primary caregiver is in agreement with the plan. - Patient/Family Goals Return home with assistance. - Planned Living Setting Upon Discharge Home, to live alone. SIGNATURE PANEL: (CDT)
--- NOTE | 2018-10-15 19:12 | PAPE ---
PATIENT: [facility] MR# [id number] REFERRING DOCTOR Dr. Abram Crews EVALUATION DATE AND TIME 10/15/2018 19:11 (CDT) NAME ANTELMO GORDILLO DATE OF 1945 AGE 72 PHONE SSN# [id number] GENDER female EVALUATING PHYSICIAN Dr. Edmar Garrett M.D. ADMISSION DIAGNOSIS: Osteoarthritis of right hip ONSET DATE 10/12/2018 SECONDARY/COMORBID DIAGNOSES TIERED: - N/A COPD CHF DIABETES HYPERTENSION POST-ADMISSION FUNCTIONAL/MEDICAL STATUS: - Bladder Same accident frequency: Ind - No accidents in the past 7 days - Bowel Same accident frequency: Ind - No accidents in the past 7 days - Walking Same score based on distance walked: 3(>=150ft) - Wheelchair Same score based on distance traveled: 1(<=50ft) STATUS CHANGE EVALUATION: No change in Functional or Medical Status is identified compared with Pre-Admission screening. PATIENT NEEDS CLOSE MEDICAL SUPERVISION BY A REHABILITATION PHYSICIAN FOR: Bowel and Bladder Management Coordination of Treatment Team Diabetes Management Medical and Co-Morbidity Management Post-Op Complications Wound Care PATIENT REQUIRES 24X7 REHAB NURSING FOR MEDICAL AND FUNCTIONAL MGT. OF THE FOLLOWING DEFICITS: ADL's Ambulation Bowel and Bladder Management Cognition Communication Disease Management Medication Management Patient/Family Education Providing Safe Environment Skin Integrity Transfers PATIENT REQUIRES INTENSIVE, COORDINATED INTERDISCIPLINARY APPROACH TO REHAB: Arranging Home Equipment/Services Discharge Planning Family Intervention/Training Manager Internship/Case Management LIST OF IDENTIFIED AND POTENTIAL PROBLEMS: Alteration in leisure activities Bladder, Incontinence Blood Pressure, Hypertension/hypotension Issues Bowel, Incontinence Diabetes, Hyperglycemia/hypoglycemia Issues Fluid volume overload related to Congestive Heart Failure (CHF) Infection, Actual or Potential Mobility Impaired Pain, Alteration in Comfort Self Care Deficit Skin Integrity, Actual or Potential Urinary Tract Infection (UTI), Actual or Potential RISK FOR COMPLICATIONS - COPD Acute Resp failure. Pneumonia. Resp. Arrest. - Diabetes DM ulcers. Infection. Ketoacidosis. PVD neuropathy. - Hypertension CVA. Hypotension. CA. TIA. INTERVENTIONS - COPD 02 sats. Medications. Nebulizers. Oxygen. Resp. therapy. X-rays. - Diabetes BS's. Education. Glycohemoglobin. Medications. Podiatry. - Hypertension PATIENT COULD BE AT RISK FOR COMPLICATIONS FROM ADVERSE MEDICAL CONDITIONS DUE TO HIS/HER COMORBIDITI ES AND THE RIGORS OF THE INTENSIVE REHABILLITATION PROGRAM. METHODS OR INTERVENTIONS TO AVOID COMPLIC ATIONS INCLUDE: - Bleeding Assess lab values and manage abnormalities. Nursing to teach precautions for anti-coagulation therapy . Wound to be assessed every shift. - Infection Clinical staff to assess and manage the signs and symptoms of infection including fever, redness, war mth, etc. - Urinary Tract Infection - Falls Patient will be evaluated for Fall Precautions and will be placed on Fall Precautions as indicated pe r protocol. - Skin Breakdown Nursing will assess skin daily using assessment tool and will place on Skin Breakdown Precautions as indicated per protocol. - Pain Clinical staff may employ non-medication methods such as massage, distraction, decrease stimulus, etc . as needed. Clinical staff will assess patient's pain level every shift per protocol to assess and e nsure pain management effectiveness. Medications will be given and the pain level re-assessed. PRELIMINARY PLAN OF CARE: - Physical Therapy Patient needs Physical Therapy for a daily minimum of 1.5 hours at least 5 out of 7 days, to improve: Mobility, Strengthening, Transfers, Stretching, ROM, Endurance, Ability to manage stairs, Gait, and Balance. - Rehabilitation Nursing Patient requires 24x7 Rehabilitation Nursing for: Pain Issues, Identifying and preventing risk factor s, Monitoring and reporting current medical conditions, Assisting with ambulation and transfer, Glenn ting with all ADL-s, Teaching patients about disease process and medications, Family teaching, Provid ing safe environment, Bowel and Bladder Issues, Skin Integrity, and Medication Management. Patient needs Manager Internship and/or Case Management for: Discharge Planning, Arranging Home Equipmen t or Services, and Family Interventions. - Dietary and Nutrition Services Patient needs Dietary and Nutrition Services for: Adequate Nutrition, Nutritional Supplements, and Nu tritional Education. - Occupational Therapy Patient needs Occupational Therapy for a daily minimum of 1.5 hours at least 5 out of 7 days, to impr ove Activities of Daily Living, including: Eating, Grooming, Bathing, Dressing, Toileting, Toilet Tra nsfers, Community Reintegration, Higher functional activities, Adaptive Equipment, Splinting, Househo ld Tasks, and Other activities as determined. POTENTIAL FUNCTIONAL GOALS FOR PATIENT TO ACHIEVE BY DISCHARGE: - Safety Precaution Patient will remain free from falls or injury at time of discharge. - Bed Mobility Patient will perform bed mobility at 4-Hayley level of assistance. - Transfers Patient will complete transfers from bed to chair at 4-Hayley level of assistance. - Mobility Patient will ambulate 150 ft with 4-Hayley level of assistance with RW. PATIENT REHAB POTENTIAL Tanna GORDILLO is able and expected to receive 3 hours of individualized therapy daily on at least 5 of lyudmila ry 7 days Tanna Condon prognosis for significant practical improvement within a reasonable period of time appears Good Expected level of measurable improvement will be of a practical value to Tanna GORDILLO's functional capaci ty or adaptations to impairments Has a viable Discharge Plan Medically appropriate; condition is sufficiently stable to participate in intensive rehab program DISCHARGE PLAN: - Estimated Length of Stay (days) 9. - Consensus on plan Discharge plan has been discussed with primary caregiver. Patient/Family is in agreement with the niels n. Primary caregiver is in agreement with the plan. - Patient/Family Goals Return home with assistance. - Planned Living Setting Upon Discharge Home, to live alone. CONCLUSION ON REHABILITATION NECESSITY: I have evaluated patient's pre-admission functional status and, comparing it to the patient's post-ad mission functional status now, I conclude that the pre-admission assessment was accurate. Patient's c ondition on admission supports the medical necessity of admission to [facility]. It is safe to proceed with patient's therapy program. SIGNATURE PANEL: (CDT)
[2018-10-15 19:50] LABS: Urine Appearance CLEAR; Urine Blood NEGATIVE (NEG); Urine Color YELLOW; Urine Glucose TRACE (NEG); Urine Protein NEGATIVE (NEG)
[2018-10-15 19:54] LABS: Urine Bilirubin NEGATIVE (NEG)
[2018-10-15 19:56] LABS: Urine Bacteria <20 /HPF (<20); Urine Culture Reflex Order REFLEXED; Urine RBC NONE SEEN /HPF (NONE SEEN)
[2018-10-15] MEDS: SYMBICORT 160 MCG IH SCH (20:00)
[2018-10-15] MEDS: HYDROCODONE/APAP 10/325 TAB PO PRN (20:30)
[2018-10-15] MEDS: SENOSIDES 8.6 MG TAB PO SCH (20:30)
[2018-10-15] MEDS: APIXABAN 2.5 MG TABLET PO SCH (20:31)
[2018-10-15] MEDS: LIPASE/PROTEASE/AMYLASE CAP PO SCH (20:31)
[2018-10-15] MEDS: ATORVASTATIN 10 MG TAB PO SCH (20:31)
[2018-10-15] MEDS: METHOCARBAMOL 500 MG TAB PO SCH (20:31)
[2018-10-15] MEDS: GABAPENTIN 300 MG CAP PO SCH (20:31)
[2018-10-15] MEDS: MECLIZINE HCL 12.5 MG TAB PO SCH (20:32)
[2018-10-15] MEDS: BUSPIRONE HCL 5 MG TABLET PO SCH (20:32)
[2018-10-15] MEDS: INSULIN -REGULAR HUMAN 50 UNIT/0.5 ML ML SQ SCH (20:39)
[2018-10-16] MEDS: SYMBICORT 160 MCG IH SCH ×3 (03:23→18:58)
[2018-10-16] MEDS: CARVEDILOL 25 MG TAB PO SCH ×2 (05:23→17:25)
[2018-10-16 06:20] LABS: Absolute Lymphocytes (CBC) 1.2 K/uL (0.7-4.9); Basophils % 0.2 % (0-1.3); Lymphocytes % 15.1 % (15.3-44.8); MPV 9.3 fL (7.6-11.3); RBC Red Blood Cell Count 3.34 M/uL (3.86-4.86)
[2018-10-16 06:42] LABS: Albumin 2.5 g/dL (3.4-5.0); BUN Blood Urea Nitrogen 14 mg/dL (7-18); Bicarbonate 28 mmol/L (21-32); Glucose Level 146 mg/dL (74-106); Magnesium 1.9 mg/dL (1.8-2.4); Potassium 3.4 mmol/L (3.5-5.1); Sodium Level 141 mmol/L (136-145)
[2018-10-16] MEDS: INSULIN -REGULAR HUMAN 50 UNIT/0.5 ML ML SQ SCH ×4 (07:30→20:01)
[2018-10-16] MEDS: HYDROCODONE/APAP 10/325 TAB PO PRN ×2 (07:57→14:51)
[2018-10-16] MEDS: METHOCARBAMOL 500 MG TAB PO SCH ×2 (07:58→18:59)
[2018-10-16] MEDS: LIPASE/PROTEASE/AMYLASE CAP PO SCH ×3 (07:58→19:00)
[2018-10-16] MEDS: DIGOXIN 0.125 MG TABLET PO SCH (07:58)
[2018-10-16] MEDS: FUROSEMIDE 40 MG TABLET PO SCH (07:59)
[2018-10-16] MEDS: FLUOXETINE 20 MG CAP PO SCH (07:59)
[2018-10-16] MEDS: ASPIRIN 81 MG CHEWABLE TABLET PO SCH (07:59)
[2018-10-16] MEDS: MECLIZINE HCL 12.5 MG TAB PO SCH ×3 (07:59→18:59)
[2018-10-16] MEDS: LISINOPRIL 20 MG TAB PO SCH (08:00)
[2018-10-16] MEDS: APIXABAN 2.5 MG TABLET PO SCH ×2 (08:00→19:00)
[2018-10-16] MEDS: GABAPENTIN 300 MG CAP PO SCH ×3 (08:01→18:59)
[2018-10-16] MEDS: POTASSIUM CL SA 10 MEQ TAB PO SCH (08:01)
[2018-10-16] MEDS: BUSPIRONE HCL 5 MG TABLET PO SCH ×2 (08:01→19:00)
[2018-10-16] MEDS: glipiZIDE 5 MG TAB PO SCH ×2 (08:01→16:31)
[2018-10-16] MEDS: FENOFIBRATE 160 MG TAB PO SCH (08:01)
--- NOTE | 2018-10-16 09:28 | FAST ---
SHIFT START DATE/TIME: 10/16/2018 07:00 (CDT) SHIFT END DATE/TIME: 10/16/2018 19:00 (CDT) NAME ANTELMO GORDILLO DATE OF : 1945 DATE OF ADMISSION: 10/15/2018 16:10 (CDT) PHONE: AGE: 72 N# [id number] GENDER: Female ENCOUNTER PHYSICIAN: Dr. Edmar Garrett M.D. ADMISSION DIAGNOSIS: - Orthopaedic Disorders 08 - Unilateral Hip Replacement (08.51) Osteoarthritis of right hip. EATING: EATING - STEP 1: Does the patient require the assistance of a person or device, or need extra time when eating? Yes. EATING - STEP 2: Does the patient require the assistance of a helper? No, patient only requires an assistive device, O R s/he takes more than reasonable time to eat, OR there is a safety concern, OR s/he requires modifie d food consistency EATING - SCORE: 6-LORI GROOMING: Activity did not occur on this shift GROOMING - SCORE: 0-UNK BATHING: Activity did not occur on this shift BATHING - SCORE: 0-UNK DRESSING - UPPER BODY: Activity did not occur on this shift ARTICLES SCORE Total number of steps: 0 DRESSING - UPPER BODY - SCORE: 0-UNK DRESSING - LOWER BODY: Activity did not occur on this shift ARTICLES SCORE Total number of steps: 0 DRESSING - LOWER BODY - SCORE: 0-UNK TOILETING: TOILETING - STEP 1: Does the patient require the assistance of a person or device, or need extra time with toileting? Yes . TOILETING - STEP 2: Does the patient require the assistance of a helper? Yes. TOILETING - STEP 3: How much assistance does the patient require from the helper? Hands-on assistance from the helper TOILETING - STEP 4: Of the 3 tasks: 1) Adjusting clothing prior to use, 2) Cleansing of perineal area, 3) Adjusting clot jennifer after use; How many tasks does the patient perform WITHOUT assistance of the helper? Three tasks with steadying assistance from the helper TOILETING - SCORE: 4-MIN BLADDER MANAGEMENT: BLADDER MANAGEMENT - STEP 1: Does the patient control the bladder completely and intentionally without equipment or devices or med ications, and is always continent? No. BLADDER MANAGEMENT - STEP 2: Does the patient require the assistance of a helper? No, patient requires and independently uses an a ssistive device, such as a urinal, bedpan, bedside commode, catheter, absorbent pad, or collecting de vice BLADDER MANAGEMENT - SCORE: 6-LORI BOWEL MANAGEMENT: Activity did not occur on this shift BOWEL MANAGEMENT - SCORE: 7-IND TRANSFERS: BED, CHAIR, WHEELCHAIR: TRANSFERS: BED, CHAIR, WHEELCHAIR - STEP 1: Does the patient require assistance of a person or device, or need extra time with bed, chair, or whe elchair transfers? Yes. TRANSFERS: BED, CHAIR, WHEELCHAIR - STEP 2: Does the patient require the assistance of a helper? Yes. TRANSFERS: BED, CHAIR, WHEELCHAIR - STEP 3: How much assistance does the patient require from the helper? Steadying/guiding assistance TRANSFERS: BED, CHAIR, WHEELCHAIR - SCORE: 4-MIN TRANSFERS: TOILET: TRANSFERS: TOILET - STEP 1: Does the patient require the assistance of a person or device, or need extra time with toilet transfe rs? Yes. TRANSFERS: TOILET - STEP 2: Does the patient require the assistance of a helper? Yes. TRANSFERS: TOILET - STEP 3: How much assistance does the patient require from the helper? Patient performs half or more of the tr ansferring tasks TRANSFERS: TOILET - STEP 4: Does the patient need only incidental help such as contact guard or steadying during toilet transfer? No. Patient needs more than incidental help TRANSFERS: TOILET - SCORE: 3-MOD TRANSFERS: SHOWER: Activity did not occur on this shift TRANSFERS: SHOWER - SCORE: 0-UNK TRANSFERS: TUB: Activity did not occur on this shift TRANSFERS: TUB - SCORE: 0-UNK LOCOMOTION: WALK: Activity did not occur on this shift LOCOMOTION: WALK - SCORE: 0-UNK LOCOMOTION: WHEELCHAIR: Activity did not occur on this shift LOCOMOTION: WHEELCHAIR - SCORE: 0-UNK COMPREHENSION: COMPREHENSION: TYPE: Both COMPREHENSION - STEP 1: Does the patient require help from a person or device, or need extra time to understand complex and a bstract ideas (such as current events, finances, discharge planning, medical issues, relationships, e tc)? No. COMPREHENSION - STEP 2: Does the patient need extra time, require an assistive device (such as glasses for visual comprehensi on or a hearing aid for auditory comprehension) or does s/he have mild difficulty understanding compl ex and abstract information? Yes. COMPREHENSION - SCORE: 6-LORI EXPRESSION EXPRESSION: TYPE: Both EXPRESSION - STEP 1: Does the patient require help from a person or device, or need extra time expressing complex and abst ract ideas (such as current events, finances, discharge planning, medical issues, relationships, etc) ? No. EXPRESSION - STEP 2: Does the patient need extra time, require an assistive device (such as augmentive communication syste m or a communication board), OR does s/he have mild difficulty expressing complex and abstract ideas (including mild dysarthria or mild word-find problems)? Yes. EXPRESSION - SCORE: 6-LORI SOCIAL INTERACTION: SOCIAL INTERACTION - STEP 1: Does the patient require a helper to interact with others in social and therapeutic situations? No. SOCIAL INTERACTION - STEP 2: Does the patient need extra time in social situations, OR does s/he interact with staff, other patien ts, and family members ONLY in structured environments, OR does s/he require medication for social in teraction? Yes, patient needs extra time SOCIAL INTERACTION - SCORE: 6-LORI PROBLEM SOLVING: PROBLEM SOLVING - STEP 1: Does the patient need help from a person or device, or need extra time to solve complex problems such as managing a checking account or confronting interpersonal problems? No. PROBLEM SOLVING - STEP 2: Does the patient require extra time to make decisions or solve problems, OR does s/he have slight dif ficulty reading, initiating, or self-correcting in unfamiliar situations? Yes, patient needs extra ti me. PROBLEM SOLVING - SCORE: 6-LORI MEMORY: MEMORY - STEP 1: Does the patient need help from a person or device, or need extra time to remember frequently encount ered people, daily routines, and executing requests? No. MEMORY - STEP 2: Does the patient have slight difficulty recognizing frequently encountered people, daily routines, or executing requests without the need for repetition or using self-initiated or environmental cues to remember? Yes. MEMORY - SCORE: 6-LORI SIGNATURE PANEL: The following modified sections: Eating - Score, Grooming - Score, Bathing - Score, Dressing - Upper Body - Score, Dressing - Lower Body - Score, Toileting - Score, Bladder Management - Score, Bowel Man agement - Score, Transfers: Bed, Chair, Wheelchair - Score, Transfers: Toilet - Score, Transfers: Irma wer - Score, Transfers: Tub - Score, Locomotion: Walk - Score, Locomotion: Wheelchair - Score, Compre hension - Score, Expression - Score, Social Interaction - Score, Problem Solving - Score, Memory - Sc ore were [electronically] signed by Evaristo Patiño on Sat Oct 16 2018 09:27:32 GMT-0500 (Central Daylight Time)
[2018-10-16] MEDS: CRANBERRY FRUIT EXTRACT 200 MG CAP PO SCH (18:58)
[2018-10-16] MEDS: MELATONIN 5 MG TABLET PO PRN (18:59)
[2018-10-16] MEDS: ATORVASTATIN 10 MG TAB PO SCH (18:59)
[2018-10-16] MEDS: SENOSIDES 8.6 MG TAB PO SCH (18:59)
[2018-10-17] MEDS: CARVEDILOL 25 MG TAB PO SCH ×2 (05:02→17:05)
[2018-10-17] MEDS: INSULIN -REGULAR HUMAN 50 UNIT/0.5 ML ML SQ SCH ×4 (07:30→20:10)
[2018-10-17] MEDS: HYDROCODONE/APAP 10/325 TAB PO PRN ×3 (08:09→21:12)
[2018-10-17] MEDS: SYMBICORT 160 MCG IH SCH ×2 (08:10→20:06)
[2018-10-17] MEDS: METHOCARBAMOL 500 MG TAB PO SCH ×2 (08:11→20:08)
[2018-10-17] MEDS: LISINOPRIL 20 MG TAB PO SCH (08:12)
[2018-10-17] MEDS: BUSPIRONE HCL 5 MG TABLET PO SCH ×2 (08:12→20:07)
[2018-10-17] MEDS: LIPASE/PROTEASE/AMYLASE CAP PO SCH ×3 (08:12→20:10)
[2018-10-17] MEDS: glipiZIDE 5 MG TAB PO SCH ×2 (08:13→16:38)
[2018-10-17] MEDS: FLUOXETINE 20 MG CAP PO SCH (08:13)
[2018-10-17] MEDS: CRANBERRY FRUIT EXTRACT 200 MG CAP PO SCH ×2 (08:13→20:08)
[2018-10-17] MEDS: MECLIZINE HCL 12.5 MG TAB PO SCH ×3 (08:14→20:10)
[2018-10-17] MEDS: GABAPENTIN 300 MG CAP PO SCH ×3 (08:14→20:09)
[2018-10-17] MEDS: FENOFIBRATE 160 MG TAB PO SCH (08:14)
[2018-10-17] MEDS: POTASSIUM CL SA 10 MEQ TAB PO SCH (08:14)
[2018-10-17] MEDS: DIGOXIN 0.125 MG TABLET PO SCH (08:14)
[2018-10-17] MEDS: APIXABAN 2.5 MG TABLET PO SCH ×2 (08:14→20:10)
[2018-10-17] MEDS: FUROSEMIDE 40 MG TABLET PO SCH (08:15)
[2018-10-17] MEDS: ASPIRIN 81 MG CHEWABLE TABLET PO SCH (08:15)
[2018-10-17] MEDS: ATORVASTATIN 10 MG TAB PO SCH (20:08)
[2018-10-17] MEDS: MELATONIN 5 MG TABLET PO PRN (20:08)
[2018-10-17] MEDS: SENOSIDES 8.6 MG TAB PO SCH (20:11)
[2018-10-18] MEDS: CARVEDILOL 25 MG TAB PO SCH ×2 (05:16→17:14)
[2018-10-18] MEDS: HYDROCODONE/APAP 10/325 TAB PO PRN ×3 (06:45→20:40)
[2018-10-18] MEDS: INSULIN -REGULAR HUMAN 50 UNIT/0.5 ML ML SQ SCH ×4 (07:30→21:04)
[2018-10-18] MEDS: SYMBICORT 160 MCG IH SCH ×2 (08:25→19:39)
[2018-10-18] MEDS: CRANBERRY FRUIT EXTRACT 200 MG CAP PO SCH ×2 (08:25→19:40)
[2018-10-18] MEDS: POTASSIUM CL SA 10 MEQ TAB PO SCH (08:26)
[2018-10-18] MEDS: METHOCARBAMOL 500 MG TAB PO SCH ×2 (08:26→19:39)
[2018-10-18] MEDS: APIXABAN 2.5 MG TABLET PO SCH ×2 (08:27→19:41)
[2018-10-18] MEDS: DIGOXIN 0.125 MG TABLET PO SCH (08:27)
[2018-10-18] MEDS: LISINOPRIL 20 MG TAB PO SCH (08:27)
[2018-10-18] MEDS: LIPASE/PROTEASE/AMYLASE CAP PO SCH ×3 (08:27→20:39)
[2018-10-18] MEDS: GABAPENTIN 300 MG CAP PO SCH ×3 (08:28→20:39)
[2018-10-18] MEDS: BUSPIRONE HCL 5 MG TABLET PO SCH ×2 (08:28→19:41)
[2018-10-18] MEDS: glipiZIDE 5 MG TAB PO SCH ×2 (08:28→17:14)
[2018-10-18] MEDS: FLUOXETINE 20 MG CAP PO SCH (08:29)
[2018-10-18] MEDS: ASPIRIN 81 MG CHEWABLE TABLET PO SCH (08:29)
[2018-10-18] MEDS: FENOFIBRATE 160 MG TAB PO SCH (08:29)
[2018-10-18] MEDS: FUROSEMIDE 40 MG TABLET PO SCH (08:29)
[2018-10-18] MEDS: MECLIZINE HCL 12.5 MG TAB PO SCH ×3 (08:30→20:39)
--- NOTE | 2018-10-18 13:02 | FAST ---
ENCOUNTER DATE AND TIME: 10/18/2018 08:00 (CDT) NAME ANTELMO GORDILLO DATE OF : 1945 DATE OF ADMISSION: 10/15/2018 16:10 (CDT) PHONE: AGE: 72 SSN# [id number] GENDER: Female ENCOUNTER PHYSICIAN: Dr. Edmar Garrett M.D. ADMISSION DIAGNOSIS: - Orthopaedic Disorders 08 - Unilateral Hip Replacement (08.51) Osteoarthritis of right hip. EATING: Activity did not occur on this shift EATING - SCORE: 0-UNK GROOMING: Activity did not occur on this shift GROOMING - SCORE: 0-UNK BATHING: Activity did not occur on this shift BATHING - SCORE: 0-UNK DRESSING - UPPER BODY: Activity did not occur on this shift Patient is not dressing in public clothing ARTICLES SCORE Total number of steps: 0 DRESSING - UPPER BODY - SCORE: 0-UNK DRESSING - LOWER BODY: Activity did not occur on this shift Patient is not dressing in public clothing ARTICLES SCORE Total number of steps: 0 DRESSING - LOWER BODY - SCORE: 0-UNK TOILETING: Activity did not occur on this shift TOILETING - SCORE: 0-UNK BLADDER MANAGEMENT: Activity did not occur on this shift BLADDER MANAGEMENT - SCORE: 7-IND BOWEL MANAGEMENT: Activity did not occur on this shift BOWEL MANAGEMENT - SCORE: 7-IND TRANSFERS: BED, CHAIR, WHEELCHAIR: TRANSFERS: BED, CHAIR, WHEELCHAIR - STEP 1: Does the patient require assistance of a person or device, or need extra time with bed, chair, or whe elchair transfers? Yes. TRANSFERS: BED, CHAIR, WHEELCHAIR - STEP 2: Does the patient require the assistance of a helper? Yes. TRANSFERS: BED, CHAIR, WHEELCHAIR - STEP 3: How much assistance does the patient require from the helper? Steadying/guiding assistance TRANSFERS: BED, CHAIR, WHEELCHAIR - SCORE: 4-MIN TRANSFERS: TOILET: Activity did not occur on this shift TRANSFERS: TOILET - SCORE: 0-UNK TRANSFERS: SHOWER: Activity did not occur on this shift TRANSFERS: SHOWER - SCORE: 0-UNK TRANSFERS: TUB: Activity did not occur on this shift TRANSFERS: TUB - SCORE: 0-UNK LOCOMOTION: WALK: LOCOMOTION: WALK - STEP 1: Does the patient need help from a person or device, or need extra time to walk 150 feet? Yes. LOCOMOTION: WALK - STEP 2: How much assistance does the patient require to walk a minimum of 150 feet? Only incidental help such as contact guarding or steadying LOCOMOTION: WALK - SCORE: 4-MIN LOCOMOTION: WHEELCHAIR: Activity did not occur on this shift LOCOMOTION: WHEELCHAIR - SCORE: 0-UNK LOCOMOTION: STAIRS: LOCOMOTION: STAIRS - STEP 1: Does the patient need help to go up and down 12 to 14 stairs? Yes. LOCOMOTION: STAIRS - STEP 2: How much assistance does the patient need from the helper to go a minimum of 12 to 14 stairs? The pat ient goes less than 12 stairs, but at least 4 stairs LOCOMOTION: STAIRS - SCORE: 2-MAX COMPREHENSION: COMPREHENSION - SCORE: 0-UNK EXPRESSION EXPRESSION - SCORE: 0-UNK SOCIAL INTERACTION: SOCIAL INTERACTION - SCORE: 0-UNK PROBLEM SOLVING: PROBLEM SOLVING - SCORE: 0-UNK MEMORY: MEMORY - SCORE: 0-UNK SIGNATURE PANEL: The following modified sections: Transfers: Bed, Chair, Wheelchair - Score, Transfers: Toilet - Score , Locomotion: Walk - Score, Locomotion: Wheelchair - Score, Locomotion: Stairs - Score were [electron mariia] signed by Sam Khan PT on ThuOct 18 2018 13:01:10 T-0500 (Central Daylight Time)
--- NOTE | 2018-10-18 18:05 | R.PN ---
ENCOUNTER DATE AND TIME: 10/18/2018 18:02 (CDT) NAME ANTELMO GORDILLO DATE OF : 1945 DATE OF ADMISSION: 10/15/2018 16:10 (CDT) Osteoarthritis of right hipCHIEF COMPLAINT: Right hip osteoarthritis SUBJECTIVE: Pt denied any depression. Pt denied any Shortness of Breath. Ambulated 750' using a rolling walker with contact guard assistance. Up and down 5 steps with contact guard assistance. VITAL SIGNS Temperature: 98.6 F SBP/DBP: 139/71 Pulse: 76 Resp: 16 MEDICATION ALLERGIES: No Known Drug Allergies (NKDA) ENVIRONMENTAL ALLERGIES: - Substance Allergies None Known - Other Allergies None Known NURSING: - Shower allowing shower - Lab Results blood Sugar Check ACHS - Skin care per protocol PRECAUTIONS: - Anterior Hip Precaution No abduction No active extension No adduction across midline No external rotation No hip flexion >90 degrees No internal rotation - Weight Bearing Precaution WBAT right LE ACTIVITIES OOB only with supervision THERAPIES: - Dietary and Nutrition Adequate Nutrition. Nutritional Education. Nutritional Supplements. PHYSICAL EXAM - Gen Alert and awake Lying in bed No apparent distress Oriented to: person, time, and place - Skin Surgical site on right thigh shows good hemostasis. Normacephalic - Eyes No abnormalities - Neck No abnormalities - CVS RRR - Chest No abnormalities - Abd + bowel sounds - GI Soft Deferred - No abnormalities - Ext Mild postoperative edema in the right lower extremity - MSK 4+/5 weakness in right lower extremity - Neuro 4/5 strength right lower extremity - Psych No abnormalities ASSESSMENT: Pt. is a 72 yo Right-handed white female.She elected for surgery, and on 10/12/2018 was admitted to [facility] for Right Total Hip Arthroplasty by Dr. Abram Crews.Pt. was admitted to the hospital on 10/18/2018 and underwent Orthopaedic Disorders(Unilateral Hip Replacement ()) by Dr.Dr. Abram Crews without any intraoperative complications.Her impairment category is Orthopaedi c Disorders 08 - Unilateral Hip Replacement ().Pre-morbidly, Pt. was independent/mod-I in Self- Care, Sphincter Control, Transfers Control, Locomotion, Communication, and Social Cognition; and she had good Sphincter Control.Currently, she has deficits of Transfers Control, Locomotion, Communicatio n, Social Cognition, Endurance, Balance, Safety Awareness, and Self-Care.Pt. is now referred to [facility] for acute in-patient rehabilitation in order to maximize patient's funct ional independence in activities of daily living, strength, ROM, and mobility.- Rehab Goal Patient has realistic goal of being discharged at assistance level 6-Watson to reside at Home with Antwon lee. MDM/PLAN: - Physical Therapy Decreased range of motion - to improve, our physical therapists will perform initial evaluation of p t's status upon admission and devise an individualized program for increasing patient's Range of Anil on. Gait dysfunction - to improve, our physical therapists will perform initial evaluation of pt's statu s upon admission and devise an individualized program for Gait Training, and Wheel Chair mobility Inability to transfer - to improve, our physical therapists will perform initial evaluation of pt's status upon admission and devise an individualized program for Bed mobility Need for home safety evaluation - to improve, our physical therapists will perform initial evaluatio n of pt's status upon admission and devise an individualized program for Home Evaluation Need in caregiver upon discharge - to improve, our physical therapists will perform initial evaluati on of pt's status upon admission and devise an individualized program for Caregiver Training New precaution - to improve, our physical therapists will perform initial evaluation of pt's status upon admission and devise an individualized program for Patient precaution education Edema - to improve, our physical therapists will perform initial evaluation of pt's status upon admis daxa and devise an individualized program for Elevation Training, and Lymphedema Therapy Poor balance - to improve, our physical therapists will perform initial evaluation of pt's status up on admission and devise an individualized program for Balance Training Poor endurance - to improve, our physical therapists will perform initial evaluation of pt's status upon admission and devise an individualized program for Endurance Training Weakness - to improve, our physical therapists will perform initial evaluation of pt's status upon a dmission and devise an individualized program for Aquatic Therapy, Neuromuscular Reeducation, and Str engthening Achieving independence - to improve, our physical therapists will perform initial evaluation of pt's status upon admission and devise an individualized program for Community Reintegration Activities - Occupational Therapy ADL deficits - to improve, our occupation therapists will perform initial evaluation of pt's status upon admission and devise an individualized program for Bathing, Bed mobility, Community Reintegratio n, Cooking, Dressing, Eating, Fine Motor Skills, Grooming, Homemaking, Kitchen Mobility, Laundry, Pat ient Education, Safety Awareness, Splinting - Positioning, Transfers(Toilet, Tub, Shower), and Wheel Chair Management Cognitive deficits - to improve, our occupation therapists will perform initial evaluation of pt's s tatus upon admission and devise an individualized program for Cognition - orientation Need for patient care - to improve, our occupation therapists will perform initial evaluation of pt's status upon admission and devise an individualized program for Caregiver Training Weakness - to improve, our occupation therapists will perform initial evaluation of pt's status upon admission and devise an individualized program for Aquatic Therapy, Balance, Endurance, UE ROM, and UE strengthening - Other See attached MAR (Medication Administration Record) - Anterior Hip Precaution No abduction No active extension No adduction across midline No external rotation No hip flexion >90 degrees No internal rotation - Diet - Liquid Texture Continue Regular - Tube Feed Continue N/A - Diet Type Continue Regular - Posterior Hip Precaution No adduction across midline No external rotation No hip flexion >90 degrees No internal rotation No wheel chair propulsion - Lab Results blood Sugar Check ACHS - Weight Bearing Precaution WBAT right LE - Skin care per protocol - Diet - Solid Texture Continue Regular - Shower allowing shower FUNCTIONAL STATUS: UPDATED AT WEEKLY TEAM CONFERENCE - Bladder Same accident frequency: 7-Ind - No accidents in the past 7 days - Bowel Same accident frequency: 7-Ind - No accidents in the past 7 days - Walking Same score based on distance walked: 3(>=150ft) - Wheelchair Same score based on distance traveled: 1(<=50ft) FUNCTIONAL STATUS: - Self-Care A. Eating Ind B. Grooming Ind C. Bathing Ind D. Dressing - Upper Ind E. Dressing - Lower Hayley F. Toileting Hayley - Sphincter Control G: Bladder control Ind H: Bowel control Ind - Transfers Control I. Bed/Chair/Wheelchair Hayley J. Toilet Hayley K. Tub/Shower Hayley - Locomotion L. Walk/Wheelchair (C) modA L. Walk/Wheelchair (W) sup M. Stairs ADNO - Communication N. Comprehension (B) Hayley O. Expression (B) Hayley - Social Cognition P. Social Interaction Hayley Q. Problem Solving Hayley R. Memory Hayley - Endurance Poor - Balance Poor - Safety Awareness Poor CURRENT FUNC. DEFICITS: Transfers Control, Locomotion, Communication, Social Cognition, Endurance, Balance, Safety Awareness, and Self-Care SIGNATURE PANEL: (CDT)
[2018-10-18] MEDS: ATORVASTATIN 10 MG TAB PO SCH (20:39)
[2018-10-18] MEDS: SENOSIDES 8.6 MG TAB PO SCH (21:00)
[2018-10-18] MEDS: MELATONIN 5 MG TABLET PO PRN (22:00)
--- NOTE | 2018-10-19 02:25 | FAST ---
SHIFT START DATE/TIME: 10/18/2018 19:00 (CDT) SHIFT END DATE/TIME: 10/19/2018 07:00 (CDT) NAME ANTELMO GORDILLO DATE OF : 1945 DATE OF ADMISSION: 10/15/2018 16:10 (CDT) PHONE: AGE: 72 N# [id number] GENDER: Female ENCOUNTER PHYSICIAN: Dr. Edmar Garrett M.D. ADMISSION DIAGNOSIS: - Orthopaedic Disorders 08 - Unilateral Hip Replacement (08.51) Osteoarthritis of right hip. EATING: Activity did not occur on this shift EATING - SCORE: 0-UNK GROOMING: Activity did not occur on this shift GROOMING - SCORE: 0-UNK BATHING: Activity did not occur on this shift BATHING - SCORE: 0-UNK DRESSING - UPPER BODY: Patient is not dressing in public clothing ARTICLES SCORE Total number of steps: 0 DRESSING - UPPER BODY - SCORE: 0-UNK DRESSING - LOWER BODY: Patient is not dressing in public clothing ARTICLES SCORE Total number of steps: 0 DRESSING - LOWER BODY - SCORE: 0-UNK TOILETING: TOILETING - STEP 1: Does the patient require the assistance of a person or device, or need extra time with toileting? Yes . TOILETING - STEP 2: Does the patient require the assistance of a helper? Yes. TOILETING - STEP 3: How much assistance does the patient require from the helper? Hands-on assistance from the helper TOILETING - STEP 4: Of the 3 tasks: 1) Adjusting clothing prior to use, 2) Cleansing of perineal area, 3) Adjusting clot jennifer after use; How many tasks does the patient perform WITHOUT assistance of the helper? Two tasks TOILETING - SCORE: 3-MOD BLADDER MANAGEMENT: Ramsey removes incontinent device (Depends, pull ups, etc.); cleans the patient after accident / inco ntinent episode; and, applies new incontinent device. BLADDER MANAGEMENT - SCORE: 1-DEP BOWEL MANAGEMENT: BOWEL MANAGEMENT - STEP 1: Does the patient control bowels completely and intentionally without equipment devices or medications AND is always continent? No. BOWEL MANAGEMENT - STEP 2: Does the patient require the assistance of a helper? No, patient requires medication for control such as stool softeners, suppositories, laxatives, enemas, or OTC medications BOWEL MANAGEMENT - SCORE: 6-LORI TRANSFERS: BED, CHAIR, WHEELCHAIR: TRANSFERS: BED, CHAIR, WHEELCHAIR - STEP 1: Does the patient require assistance of a person or device, or need extra time with bed, chair, or whe elchair transfers? Yes. TRANSFERS: BED, CHAIR, WHEELCHAIR - STEP 2: Does the patient require the assistance of a helper? Yes. TRANSFERS: BED, CHAIR, WHEELCHAIR - STEP 3: How much assistance does the patient require from the helper? Steadying/guiding assistance TRANSFERS: BED, CHAIR, WHEELCHAIR - SCORE: 4-MIN TRANSFERS: TOILET: TRANSFERS: TOILET - STEP 1: Does the patient require the assistance of a person or device, or need extra time with toilet transfe rs? Yes. TRANSFERS: TOILET - STEP 2: Does the patient require the assistance of a helper? Yes. TRANSFERS: TOILET - STEP 3: How much assistance does the patient require from the helper? Only supervision, cuing, coaxing, OR he lp to set out transfer equipment or to lock brakes and/or lift foot rests TRANSFERS: TOILET - SCORE: 5-SUP TRANSFERS: SHOWER: Activity did not occur on this shift TRANSFERS: SHOWER - SCORE: 0-UNK TRANSFERS: TUB: Activity did not occur on this shift TRANSFERS: TUB - SCORE: 0-UNK LOCOMOTION: WALK: Activity did not occur on this shift LOCOMOTION: WALK - SCORE: 0-UNK LOCOMOTION: WHEELCHAIR: Activity did not occur on this shift LOCOMOTION: WHEELCHAIR - SCORE: 0-UNK COMPREHENSION: COMPREHENSION: TYPE: Both COMPREHENSION - STEP 1: Does the patient require help from a person or device, or need extra time to understand complex and a bstract ideas (such as current events, finances, discharge planning, medical issues, relationships, e tc)? Yes. COMPREHENSION - STEP 2: Does the patient require help to understand questions or statements about basic needs or ideas (such as hunger, thirst, sleep, safety, daily schedule, room location, or discomfort) half or more of the t siddharth? No. COMPREHENSION - STEP 3: How often does the patient need help to understand directions and conversation about basic needs? 25% - 49% of the time COMPREHENSION - SCORE: 3-MOD EXPRESSION EXPRESSION: TYPE: Both EXPRESSION - STEP 1: Does the patient require help from a person or device, or need extra time expressing complex and abst ract ideas (such as current events, finances, discharge planning, medical issues, relationships, etc) ? No. EXPRESSION - STEP 2: Does the patient need extra time, require an assistive device (such as augmentive communication syste m or a communication board), OR does s/he have mild difficulty expressing complex and abstract ideas (including mild dysarthria or mild word-find problems)? Yes. EXPRESSION - SCORE: 6-LORI SOCIAL INTERACTION: SOCIAL INTERACTION - STEP 1: Does the patient require a helper to interact with others in social and therapeutic situations? No. SOCIAL INTERACTION - STEP 2: Does the patient need extra time in social situations, OR does s/he interact with staff, other patien ts, and family members ONLY in structured environments, OR does s/he require medication for social in teraction? Yes, patient requires medication for social interaction SOCIAL INTERACTION - SCORE: 6-LORI PROBLEM SOLVING: PROBLEM SOLVING - STEP 1: Does the patient need help from a person or device, or need extra time to solve complex problems such as managing a checking account or confronting interpersonal problems? Yes. PROBLEM SOLVING - STEP 2: Does the patient solve basic routine problems half or more of the time? Yes. PROBLEM SOLVING - STEP 3: How often does the patient need help to solve basic routine problems? Less than 10% of the time PROBLEM SOLVING - SCORE: 5-SUP MEMORY: MEMORY - STEP 1: Does the patient need help from a person or device, or need extra time to remember frequently encount ered people, daily routines, and executing requests? No. MEMORY - STEP 2: Does the patient have slight difficulty recognizing frequently encountered people, daily routines, or executing requests without the need for repetition or using self-initiated or environmental cues to remember? Yes. MEMORY - SCORE: 6-LORI SIGNATURE PANEL: The following modified sections: Eating - Score, Grooming - Score, Dressing - Upper Body - Score, Ezio ssing - Lower Body - Score, Toileting - Score, Bladder Management - Score, Bowel Management - Score, Transfers: Bed, Chair, Wheelchair - Score, Transfers: Toilet - Score, Transfers: Shower - Score, Alvares sfers: Tub - Score, Locomotion: Walk - Score, Locomotion: Wheelchair - Score, Comprehension - Score, Expression - Score, Social Interaction - Score, Problem Solving - Score, Memory - Score were [electro nically] signed by Blanca Hartmann CNA on ThuOct 19 2018 02:24:10 [facility]-0500 (Central Daylight Time)
[2018-10-19] MEDS: CARVEDILOL 25 MG TAB PO SCH ×2 (05:21→17:33)
[2018-10-19] MEDS: INSULIN -REGULAR HUMAN 50 UNIT/0.5 ML ML SQ SCH ×4 (07:30→20:26)
[2018-10-19] MEDS: HYDROCODONE/APAP 10/325 TAB PO PRN ×3 (08:00→18:40)
[2018-10-19] MEDS: CRANBERRY FRUIT EXTRACT 200 MG CAP PO SCH ×2 (08:01→19:39)
[2018-10-19] MEDS: POTASSIUM CL SA 10 MEQ TAB PO SCH (08:01)
[2018-10-19] MEDS: GABAPENTIN 300 MG CAP PO SCH ×3 (08:02→20:24)
[2018-10-19] MEDS: FLUOXETINE 20 MG CAP PO SCH (08:02)
[2018-10-19] MEDS: DIGOXIN 0.125 MG TABLET PO SCH (08:02)
[2018-10-19] MEDS: LIPASE/PROTEASE/AMYLASE CAP PO SCH ×3 (08:03→20:24)
[2018-10-19] MEDS: FENOFIBRATE 160 MG TAB PO SCH (08:03)
[2018-10-19] MEDS: ASPIRIN 81 MG CHEWABLE TABLET PO SCH (08:03)
[2018-10-19] MEDS: BUSPIRONE HCL 5 MG TABLET PO SCH ×2 (08:04→19:38)
[2018-10-19] MEDS: MECLIZINE HCL 12.5 MG TAB PO SCH ×3 (08:04→20:25)
[2018-10-19] MEDS: LISINOPRIL 20 MG TAB PO SCH (08:04)
[2018-10-19] MEDS: APIXABAN 2.5 MG TABLET PO SCH ×2 (08:04→19:39)
[2018-10-19] MEDS: glipiZIDE 5 MG TAB PO SCH ×2 (08:05→17:35)
[2018-10-19] MEDS: FUROSEMIDE 40 MG TABLET PO SCH (08:05)
[2018-10-19] MEDS: SYMBICORT 160 MCG IH SCH ×2 (08:06→19:38)
[2018-10-19] MEDS: METHOCARBAMOL 500 MG TAB PO SCH ×2 (09:49→19:39)
[2018-10-19] MEDS: LIDOCAINE 5% PATCH TOP SCH (09:49)
--- NOTE | 2018-10-19 12:58 | FAST ---
ENCOUNTER DATE AND TIME: 10/19/2018 08:00 (CDT) NAME ANTELMO GORDILLO DATE OF : 1945 DATE OF ADMISSION: 10/15/2018 16:10 (CDT) PHONE: AGE: 72 SSN# [id number] GENDER: Female ENCOUNTER PHYSICIAN: Dr. Edmar Garrett M.D. ADMISSION DIAGNOSIS: - Orthopaedic Disorders 08 - Unilateral Hip Replacement (08.51) Osteoarthritis of right hip. EATING: Activity did not occur on this shift EATING - SCORE: 0-UNK GROOMING: Activity did not occur on this shift GROOMING - SCORE: 0-UNK BATHING: Activity did not occur on this shift BATHING - SCORE: 0-UNK DRESSING - UPPER BODY: Activity did not occur on this shift Patient is not dressing in public clothing ARTICLES SCORE Total number of steps: 0 DRESSING - UPPER BODY - SCORE: 0-UNK DRESSING - LOWER BODY: Activity did not occur on this shift Patient is not dressing in public clothing ARTICLES SCORE Total number of steps: 0 DRESSING - LOWER BODY - SCORE: 0-UNK TOILETING: Activity did not occur on this shift TOILETING - SCORE: 0-UNK BLADDER MANAGEMENT: Activity did not occur on this shift BLADDER MANAGEMENT - SCORE: 7-IND BOWEL MANAGEMENT: Activity did not occur on this shift BOWEL MANAGEMENT - SCORE: 7-IND TRANSFERS: BED, CHAIR, WHEELCHAIR: TRANSFERS: BED, CHAIR, WHEELCHAIR - STEP 1: Does the patient require assistance of a person or device, or need extra time with bed, chair, or whe elchair transfers? Yes. TRANSFERS: BED, CHAIR, WHEELCHAIR - STEP 2: Does the patient require the assistance of a helper? Yes. TRANSFERS: BED, CHAIR, WHEELCHAIR - STEP 3: How much assistance does the patient require from the helper? Only supervision TRANSFERS: BED, CHAIR, WHEELCHAIR - SCORE: 5-SUP TRANSFERS: TOILET: Activity did not occur on this shift TRANSFERS: TOILET - SCORE: 0-UNK TRANSFERS: SHOWER: Activity did not occur on this shift TRANSFERS: SHOWER - SCORE: 0-UNK TRANSFERS: TUB: Activity did not occur on this shift TRANSFERS: TUB - SCORE: 0-UNK LOCOMOTION: WALK: LOCOMOTION: WALK - STEP 1: Does the patient need help from a person or device, or need extra time to walk 150 feet? Yes. LOCOMOTION: WALK - STEP 2: How much assistance does the patient require to walk a minimum of 150 feet? Only supervision, cuing, or coaxing LOCOMOTION: WALK - SCORE: 5-SUP LOCOMOTION: WHEELCHAIR: Activity did not occur on this shift LOCOMOTION: WHEELCHAIR - SCORE: 0-UNK LOCOMOTION: STAIRS: Activity did not occur on this shift LOCOMOTION: STAIRS - SCORE: 0-UNK COMPREHENSION: COMPREHENSION - SCORE: 0-UNK EXPRESSION EXPRESSION - SCORE: 0-UNK SOCIAL INTERACTION: SOCIAL INTERACTION - SCORE: 0-UNK PROBLEM SOLVING: PROBLEM SOLVING - SCORE: 0-UNK MEMORY: MEMORY - SCORE: 0-UNK SIGNATURE PANEL: The following modified sections: Transfers: Bed, Chair, Wheelchair - Score, Transfers: Toilet - Score , Locomotion: Walk - Score, Locomotion: Wheelchair - Score, Locomotion: Stairs - Score were [electron icarosalba] signed by Sam Khan PT on ThuOct 19 2018 12:57:21 [facility]-0500 (Central Daylight Time)
--- NOTE | 2018-10-19 15:11 | FAST ---
ENCOUNTER DATE AND TIME: 10/18/2018 08:00 (CDT) NAME ANTELMO GORDILLO DATE OF : 1945 DATE OF ADMISSION: 10/15/2018 16:10 (CDT) PHONE: AGE: 72 SSN# [id number] GENDER: Female ENCOUNTER PHYSICIAN: Dr. Edmar Garrett M.D. ADMISSION DIAGNOSIS: - Orthopaedic Disorders 08 - Unilateral Hip Replacement (08.51) Osteoarthritis of right hip. EATING: EATING - STEP 1: Does the patient require the assistance of a person or device, or need extra time when eating? No. EATING - SCORE: 7-IND GROOMING: Comb/brush hair Oral care Wash, rinse, and dry face Wash, rinse, and dry hands GROOMING - STEP 1: Does the patient require the assistance of a person or device, or need extra time when grooming? No. GROOMING - SCORE: 7-IND BATHING: Abdomen Buttocks Chest Left arm Left lower leg and foot Left upper leg Perineal area Right arm Right lower leg and foot Right upper leg BATHING - STEP 1: Does the patient require the assistance of a person or device, or need extra time when bathing? Yes. BATHING - STEP 2: Does the patient require the assistance of a helper? Yes. BATHING - STEP 3: How much assistance does the patient require from the helper? Only incidental help such as placement of a wash cloth in his/her hand a few times as s/he bathes OR help to bathe just one or two areas of the body BATHING - SCORE: 4-MIN DRESSING - UPPER BODY: T-shirt/pullover shirt (four steps) ARTICLES SCORE Total number of steps: 4 DRESSING - UPPER BODY - STEP 1: Does the patient require help from a person or device, or need extra time when dressing above the shaw st? Yes. DRESSING - UPPER BODY - STEP 2: Does the patient require the assistance of a helper? Yes. DRESSING - UPPER BODY - STEP 3: Does the helper touch the patient while dressing? No. DRESSING - UPPER BODY - SCORE: 5-SUP DRESSING - LOWER BODY: Elastic waist pants (three steps) Sock - Left foot (one step) Sock - Right foot (one step) Underwear (three steps) ARTICLES SCORE Total number of steps: 8 DRESSING - LOWER BODY - STEP 1: Does the patient require help from a person or device, or need extra time when dressing below the shaw st? Yes. DRESSING - LOWER BODY - STEP 2: Does the patient require the assistance of a helper? Yes. DRESSING - LOWER BODY - STEP 3: Does the helper touch the patient while dressing? Yes. DRESSING - LOWER BODY - STEP 4: How many of the total steps does the patient complete on his/her own? 4 DRESSING - LOWER BODY - SCORE: 3-MOD TOILETING: TOILETING - STEP 1: Does the patient require the assistance of a person or device, or need extra time with toileting? Yes . TOILETING - STEP 2: Does the patient require the assistance of a helper? Yes. TOILETING - STEP 3: How much assistance does the patient require from the helper? Hands-on assistance from the helper TOILETING - STEP 4: Of the 3 tasks: 1) Adjusting clothing prior to use, 2) Cleansing of perineal area, 3) Adjusting clot jennifer after use; How many tasks does the patient perform WITHOUT assistance of the helper? Three tasks with steadying assistance from the helper TOILETING - SCORE: 4-MIN BLADDER MANAGEMENT: Activity did not occur on this shift BLADDER MANAGEMENT - SCORE: 7-IND BOWEL MANAGEMENT: Activity did not occur on this shift BOWEL MANAGEMENT - SCORE: 7-IND TRANSFERS: BED, CHAIR, WHEELCHAIR: Activity did not occur on this shift TRANSFERS: BED, CHAIR, WHEELCHAIR - SCORE: 0-UNK TRANSFERS: TOILET: TRANSFERS: TOILET - STEP 1: Does the patient require the assistance of a person or device, or need extra time with toilet transfe rs? Yes. TRANSFERS: TOILET - STEP 2: Does the patient require the assistance of a helper? Yes. TRANSFERS: TOILET - STEP 3: How much assistance does the patient require from the helper? Patient performs half or more of the tr ansferring tasks TRANSFERS: TOILET - STEP 4: Does the patient need only incidental help such as contact guard or steadying during toilet transfer? Yes. TRANSFERS: TOILET - SCORE: 4-MIN TRANSFERS: SHOWER: TRANSFERS: SHOWER - STEP 1: Does the patient require the assistance of a person or device, or need extra time with shower transfe rs? Yes. TRANSFERS: SHOWER - STEP 2: Does the patient require the assistance of a helper? Yes. TRANSFERS: SHOWER - STEP 3: How much assistance does the patient require from the helper? Only incidental help such as contact gu arding or steadying during shower transfers, or help to lift one leg into the shower TRANSFERS: SHOWER - SCORE: 4-MIN TRANSFERS: TUB: Activity did not occur on this shift TRANSFERS: TUB - SCORE: 0-UNK LOCOMOTION: WALK: Activity did not occur on this shift LOCOMOTION: WALK - SCORE: 0-UNK LOCOMOTION: WHEELCHAIR: Activity did not occur on this shift LOCOMOTION: WHEELCHAIR - SCORE: 0-UNK LOCOMOTION: STAIRS: Activity did not occur on this shift LOCOMOTION: STAIRS - SCORE: 0-UNK COMPREHENSION: COMPREHENSION: TYPE: Both COMPREHENSION - STEP 1: Does the patient require help from a person or device, or need extra time to understand complex and a bstract ideas (such as current events, finances, discharge planning, medical issues, relationships, e tc)? No. COMPREHENSION - STEP 2: Does the patient need extra time, require an assistive device (such as glasses for visual comprehensi on or a hearing aid for auditory comprehension) or does s/he have mild difficulty understanding compl ex and abstract information? Yes. COMPREHENSION - SCORE: 6-LORI EXPRESSION EXPRESSION: TYPE: Both EXPRESSION - STEP 1: Does the patient require help from a person or device, or need extra time expressing complex and abst ract ideas (such as current events, finances, discharge planning, medical issues, relationships, etc) ? No. EXPRESSION - STEP 2: Does the patient need extra time, require an assistive device (such as augmentive communication syste m or a communication board), OR does s/he have mild difficulty expressing complex and abstract ideas (including mild dysarthria or mild word-find problems)? Yes. EXPRESSION - SCORE: 6-LORI SOCIAL INTERACTION: SOCIAL INTERACTION - STEP 1: Does the patient require a helper to interact with others in social and therapeutic situations? No. SOCIAL INTERACTION - STEP 2: Does the patient need extra time in social situations, OR does s/he interact with staff, other patien ts, and family members ONLY in structured environments, OR does s/he require medication for social in teraction? Yes, patient needs extra time SOCIAL INTERACTION - SCORE: 6-LORI PROBLEM SOLVING: PROBLEM SOLVING - STEP 1: Does the patient need help from a person or device, or need extra time to solve complex problems such as managing a checking account or confronting interpersonal problems? No. PROBLEM SOLVING - STEP 2: Does the patient require extra time to make decisions or solve problems, OR does s/he have slight dif ficulty reading, initiating, or self-correcting in unfamiliar situations? Yes, patient needs extra ti me. PROBLEM SOLVING - SCORE: 6-LORI MEMORY: MEMORY - STEP 1: Does the patient need help from a person or device, or need extra time to remember frequently encount ered people, daily routines, and executing requests? No. MEMORY - STEP 2: Does the patient have slight difficulty recognizing frequently encountered people, daily routines, or executing requests without the need for repetition or using self-initiated or environmental cues to remember? Yes. MEMORY - SCORE: 6-LORI SIGNATURE PANEL: The following modified sections: Eating - Score, Grooming - Score, Bathing - Score, Dressing - Upper Body - Score, Dressing - Lower Body - Score, Toileting - Score, Transfers: Bed, Chair, Wheelchair - S core, Transfers: Toilet - Score, Transfers: Tub - Score, Transfers: Shower - Score, Comprehension - S core, Expression - Score, Social Interaction - Score, Problem Solving - Score, Memory - Score were [e lectronically] signed by Luci Fuentes OT on ThuOct 19 2018 15:10:31 T-0500 (Central Daylight T siddharth)
--- NOTE | 2018-10-19 18:57 | R.PN ---
ENCOUNTER DATE AND TIME: 10/19/2018 18:55 (CDT) NAME ANTELMO GORDILLO DATE OF : 1945 DATE OF ADMISSION: 10/15/2018 16:10 (CDT) Osteoarthritis of right hipCHIEF COMPLAINT: Right hip osteoarthritis SUBJECTIVE: Pt denied any depression. Pt denied any Shortness of Breath. Ambulated 500' using a rolling walker with standby assistance. Up and down 5 steps with contact guard assistance. VITAL SIGNS Temperature: 98.6 F SBP/DBP: 134/66 Pulse: 72 Resp: 16 MEDICATION ALLERGIES: No Known Drug Allergies (NKDA) ENVIRONMENTAL ALLERGIES: - Substance Allergies None Known - Other Allergies None Known NURSING: - Shower allowing shower - Lab Results blood Sugar Check ACHS - Skin care per protocol PRECAUTIONS: - Anterior Hip Precaution No abduction No active extension No adduction across midline No external rotation No hip flexion >90 degrees No internal rotation - Weight Bearing Precaution WBAT right LE ACTIVITIES OOB only with supervision THERAPIES: - Dietary and Nutrition Adequate Nutrition. Nutritional Education. Nutritional Supplements. PHYSICAL EXAM - Gen Alert and awake Lying in bed No apparent distress Oriented to: person, time, and place - Skin Surgical site on right thigh shows good hemostasis. Normacephalic - Eyes No abnormalities - Neck No abnormalities - CVS RRR - Chest No abnormalities - Abd + bowel sounds - GI Soft Deferred - No abnormalities - Ext Mild postoperative edema in the right lower extremity - MSK 4+/5 weakness in right lower extremity - Neuro 4/5 strength right lower extremity - Psych No abnormalities ASSESSMENT: Pt. is a 72 yo Right-handed white female.She elected for surgery, and on 10/12/2018 was admitted to [facility], [place], operated by [facility] for Right Total Hip Arthroplasty by Dr. Abram Crews.Pt. was admitted to the hospital on 10/19/2018 and underwent Orthopaedic Disorders(Unilateral Hip Replacement ()) by Dr.Dr. Abram Crews without any intraoperative complications.Her impairment category is Orthopaedi c Disorders 08 - Unilateral Hip Replacement ().Pre-morbidly, Pt. was independent/mod-I in Self- Care, Sphincter Control, Transfers Control, Locomotion, Communication, and Social Cognition; and she had good Sphincter Control.Currently, she has deficits of Transfers Control, Locomotion, Communicatio n, Social Cognition, Endurance, Balance, Safety Awareness, and Self-Care.Pt. is now referred to [facility] for acute in-patient rehabilitation in order to maximize patient's funct ional independence in activities of daily living, strength, ROM, and mobility.- Rehab Goal Patient has realistic goal of being discharged at assistance level 6-Watson to reside at Home with Antwon lee. MDM/PLAN: - Physical Therapy Decreased range of motion - to improve, our physical therapists will perform initial evaluation of p t's status upon admission and devise an individualized program for increasing patient's Range of Anil on. Gait dysfunction - to improve, our physical therapists will perform initial evaluation of pt's statu s upon admission and devise an individualized program for Gait Training, and Wheel Chair mobility Inability to transfer - to improve, our physical therapists will perform initial evaluation of pt's status upon admission and devise an individualized program for Bed mobility Need for home safety evaluation - to improve, our physical therapists will perform initial evaluatio n of pt's status upon admission and devise an individualized program for Home Evaluation Need in caregiver upon discharge - to improve, our physical therapists will perform initial evaluati on of pt's status upon admission and devise an individualized program for Caregiver Training New precaution - to improve, our physical therapists will perform initial evaluation of pt's status upon admission and devise an individualized program for Patient precaution education Edema - to improve, our physical therapists will perform initial evaluation of pt's status upon admi ssion and devise an individualized program for Elevation Training, and Lymphedema Therapy Poor balance - to improve, our physical therapists will perform initial evaluation of pt's status up on admission and devise an individualized program for Balance Training Poor endurance - to improve, our physical therapists will perform initial evaluation of pt's status upon admission and devise an individualized program for Endurance Training Weakness - to improve, our physical therapists will perform initial evaluation of pt's status upon a dmission and devise an individualized program for Aquatic Therapy, Neuromuscular Reeducation, and Str engthening Achieving independence - to improve, our physical therapists will perform initial evaluation of pt's status upon admission and devise an individualized program for Community Reintegration Activities - Occupational Therapy ADL deficits - to improve, our occupation therapists will perform initial evaluation of pt's status upon admission and devise an individualized program for Bathing, Bed mobility, Community Reintegratio n, Cooking, Dressing, Eating, Fine Motor Skills, Grooming, Homemaking, Kitchen Mobility, Laundry, Pat ient Education, Safety Awareness, Splinting - Positioning, Transfers(Toilet, Tub, Shower), and Wheel Chair Management Cognitive deficits - to improve, our occupation therapists will perform initial evaluation of pt's s tatus upon admission and devise an individualized program for Cognition - orientation Need for childcare teacher - to improve, our occupation therapists will perform initial evaluation of pt's status upon admission and devise an individualized program for Caregiver Training Weakness - to improve, our occupation therapists will perform initial evaluation of pt's status upon admission and devise an individualized program for Aquatic Therapy, Balance, Endurance, UE ROM, and UE strengthening - Other See attached MAR (Medication Administration Record) - Anterior Hip Precaution No abduction No active extension No adduction across midline No external rotation No hip flexion >90 degrees No internal rotation - Diet - Liquid Texture Continue Regular - Tube Feed Continue N/A - Diet Type Continue Regular - Posterior Hip Precaution No adduction across midline No external rotation No hip flexion >90 degrees No internal rotation No wheel chair propulsion - Lab Results blood Sugar Check ACHS - Weight Bearing Precaution WBAT right LE - Skin care per protocol - Diet - Solid Texture Continue Regular - Shower allowing shower FUNCTIONAL STATUS: UPDATED AT WEEKLY TEAM CONFERENCE - Bladder Same accident frequency: 7-Ind - No accidents in the past 7 days - Bowel Same accident frequency: 7-Ind - No accidents in the past 7 days - Walking Same score based on distance walked: 3(>=150ft) - Wheelchair Same score based on distance traveled: 1(<=50ft) FUNCTIONAL STATUS: - Self-Care A. Eating Ind B. Grooming Ind C. Bathing Ind D. Dressing - Upper Ind E. Dressing - Lower Hayley F. Toileting Hayley - Sphincter Control G: Bladder control Ind H: Bowel control Ind - Transfers Control I. Bed/Chair/Wheelchair Hayley J. Toilet Hayley K. Tub/Shower Hayley - Locomotion L. Walk/Wheelchair (C) modA L. Walk/Wheelchair (W) sup M. Stairs ADNO - Communication N. Comprehension (B) Hayley O. Expression (B) Hayley - Social Cognition P. Social Interaction Hayley Q. Problem Solving Hayley R. Memory Hayley - Endurance Poor - Balance Poor - Safety Awareness Poor CURRENT FUNC. DEFICITS: Transfers Control, Locomotion, Communication, Social Cognition, Endurance, Balance, Safety Awareness, and Self-Care SIGNATURE PANEL: (CDT)
[2018-10-19] MEDS: SENOSIDES 8.6 MG TAB PO SCH (20:23)
[2018-10-19] MEDS: ATORVASTATIN 10 MG TAB PO SCH (20:24)
--- NOTE | 2018-10-20 01:38 | FAST ---
SHIFT START DATE/TIME: 10/19/2018 19:00 (CDT) SHIFT END DATE/TIME: 10/20/2018 07:00 (CDT) NAME ANTELMO GORDILLO DATE OF : 1945 DATE OF ADMISSION: 10/15/2018 16:10 (CDT) PHONE: AGE: 72 N# [id number] GENDER: Female ENCOUNTER PHYSICIAN: Dr. Edmar Garrett M.D. ADMISSION DIAGNOSIS: - Orthopaedic Disorders 08 - Unilateral Hip Replacement (08.51) Osteoarthritis of right hip. EATING: Activity did not occur on this shift EATING - SCORE: 0-UNK GROOMING: Wash, rinse, and dry hands GROOMING - STEP 1: Does the patient require the assistance of a person or device, or need extra time when grooming? Yes. GROOMING - STEP 2: Does the patient require the assistance of a helper? Yes. GROOMING - STEP 3: How much assistance does the patient require from the helper? Only prior equipment preparation/set up from the helper GROOMING - SCORE: 5-SUP BATHING: Activity did not occur on this shift BATHING - SCORE: 0-UNK DRESSING - UPPER BODY: Patient is not dressing in public clothing ARTICLES SCORE Total number of steps: 0 DRESSING - UPPER BODY - SCORE: 0-UNK DRESSING - LOWER BODY: Patient is not dressing in public clothing ARTICLES SCORE Total number of steps: 0 DRESSING - LOWER BODY - SCORE: 0-UNK TOILETING: TOILETING - STEP 1: Does the patient require the assistance of a person or device, or need extra time with toileting? Yes . TOILETING - STEP 2: Does the patient require the assistance of a helper? Yes. TOILETING - STEP 3: How much assistance does the patient require from the helper? Hands-on assistance from the helper TOILETING - STEP 4: Of the 3 tasks: 1) Adjusting clothing prior to use, 2) Cleansing of perineal area, 3) Adjusting clot jennifer after use; How many tasks does the patient perform WITHOUT assistance of the helper? Three tasks with steadying assistance from the helper TOILETING - SCORE: 4-MIN BLADDER MANAGEMENT: Perry removes incontinent device (Depends, pull ups, etc.); cleans the patient after accident / inco ntinent episode; and, applies new incontinent device. BLADDER MANAGEMENT - SCORE: 1-DEP BOWEL MANAGEMENT: BOWEL MANAGEMENT - STEP 1: Does the patient control bowels completely and intentionally without equipment devices or medications AND is always continent? No. BOWEL MANAGEMENT - STEP 2: Does the patient require the assistance of a helper? No, patient requires medication for control such as stool softeners, suppositories, laxatives, enemas, or OTC medications BOWEL MANAGEMENT - SCORE: 6-LORI TRANSFERS: BED, CHAIR, WHEELCHAIR: TRANSFERS: BED, CHAIR, WHEELCHAIR - STEP 1: Does the patient require assistance of a person or device, or need extra time with bed, chair, or whe elchair transfers? Yes. TRANSFERS: BED, CHAIR, WHEELCHAIR - STEP 2: Does the patient require the assistance of a helper? Yes. TRANSFERS: BED, CHAIR, WHEELCHAIR - STEP 3: How much assistance does the patient require from the helper? Steadying/guiding assistance TRANSFERS: BED, CHAIR, WHEELCHAIR - SCORE: 4-MIN TRANSFERS: TOILET: TRANSFERS: TOILET - STEP 1: Does the patient require the assistance of a person or device, or need extra time with toilet transfe rs? Yes. TRANSFERS: TOILET - STEP 2: Does the patient require the assistance of a helper? Yes. TRANSFERS: TOILET - STEP 3: How much assistance does the patient require from the helper? Only supervision, cuing, coaxing, OR he lp to set out transfer equipment or to lock brakes and/or lift foot rests TRANSFERS: TOILET - SCORE: 5-SUP TRANSFERS: SHOWER: Activity did not occur on this shift TRANSFERS: SHOWER - SCORE: 0-UNK TRANSFERS: TUB: Activity did not occur on this shift TRANSFERS: TUB - SCORE: 0-UNK LOCOMOTION: WALK: Activity did not occur on this shift LOCOMOTION: WALK - SCORE: 0-UNK LOCOMOTION: WHEELCHAIR: Activity did not occur on this shift LOCOMOTION: WHEELCHAIR - SCORE: 0-UNK COMPREHENSION: COMPREHENSION: TYPE: Both COMPREHENSION - STEP 1: Does the patient require help from a person or device, or need extra time to understand complex and a bstract ideas (such as current events, finances, discharge planning, medical issues, relationships, e tc)? Yes. COMPREHENSION - STEP 2: Does the patient require help to understand questions or statements about basic needs or ideas (such as hunger, thirst, sleep, safety, daily schedule, room location, or discomfort) half or more of the t siddharth? No. COMPREHENSION - STEP 3: How often does the patient need help to understand directions and conversation about basic needs? 10% - 24% of the time COMPREHENSION - SCORE: 4-MIN EXPRESSION EXPRESSION: TYPE: Both EXPRESSION - STEP 1: Does the patient require help from a person or device, or need extra time expressing complex and abst ract ideas (such as current events, finances, discharge planning, medical issues, relationships, etc) ? No. EXPRESSION - STEP 2: Does the patient need extra time, require an assistive device (such as augmentive communication syste m or a communication board), OR does s/he have mild difficulty expressing complex and abstract ideas (including mild dysarthria or mild word-find problems)? Yes. EXPRESSION - SCORE: 6-LORI SOCIAL INTERACTION: SOCIAL INTERACTION - STEP 1: Does the patient require a helper to interact with others in social and therapeutic situations? No. SOCIAL INTERACTION - STEP 2: Does the patient need extra time in social situations, OR does s/he interact with staff, other patien ts, and family members ONLY in structured environments, OR does s/he require medication for social in teraction? Yes, patient requires medication for social interaction SOCIAL INTERACTION - SCORE: 6-LORI PROBLEM SOLVING: PROBLEM SOLVING - STEP 1: Does the patient need help from a person or device, or need extra time to solve complex problems such as managing a checking account or confronting interpersonal problems? Yes. PROBLEM SOLVING - STEP 2: Does the patient solve basic routine problems half or more of the time? Yes. PROBLEM SOLVING - STEP 3: How often does the patient need help to solve basic routine problems? 10%-24% of the time PROBLEM SOLVING - SCORE: 4-MIN MEMORY: MEMORY - STEP 1: Does the patient need help from a person or device, or need extra time to remember frequently encount ered people, daily routines, and executing requests? No. MEMORY - STEP 2: Does the patient have slight difficulty recognizing frequently encountered people, daily routines, or executing requests without the need for repetition or using self-initiated or environmental cues to remember? Yes. MEMORY - SCORE: 6-LORI SIGNATURE PANEL: The following modified sections: Eating - Score, Grooming - Score, Dressing - Upper Body - Score, Ezio ssing - Lower Body - Score, Toileting - Score, Bladder Management - Score, Bowel Management - Score, Transfers: Bed, Chair, Wheelchair - Score, Transfers: Toilet - Score, Transfers: Shower - Score, Alvares sfers: Tub - Score, Locomotion: Walk - Score, Locomotion: Wheelchair - Score, Comprehension - Score, Expression - Score, Social Interaction - Score, Problem Solving - Score, Memory - Score were [electro nically] signed by Blanca Hartmann CNA on ThuOct 20 2018 01:38:11 GMT-0500 (Central Daylight Time)
[2018-10-20] MEDS: HYDROCODONE/APAP 10/325 TAB PO PRN ×3 (03:48→12:17)
[2018-10-20] MEDS: CARVEDILOL 25 MG TAB PO SCH ×2 (05:16→17:31)
[2018-10-20] MEDS: INSULIN -REGULAR HUMAN 50 UNIT/0.5 ML ML SQ SCH ×4 (07:30→20:18)
[2018-10-20] MEDS: CRANBERRY FRUIT EXTRACT 200 MG CAP PO SCH ×2 (08:00→18:55)
[2018-10-20] MEDS: LIDOCAINE 5% PATCH TOP SCH (08:01)
[2018-10-20] MEDS: APIXABAN 2.5 MG TABLET PO SCH ×2 (08:02→18:56)
[2018-10-20] MEDS: POTASSIUM CL SA 10 MEQ TAB PO SCH (08:02)
[2018-10-20] MEDS: GABAPENTIN 300 MG CAP PO SCH ×2 (08:02→18:54)
[2018-10-20] MEDS: METHOCARBAMOL 500 MG TAB PO SCH ×2 (08:03→18:55)
[2018-10-20] MEDS: LIPASE/PROTEASE/AMYLASE CAP PO SCH ×3 (08:03→18:54)
[2018-10-20] MEDS: DIGOXIN 0.125 MG TABLET PO SCH (08:03)
[2018-10-20] MEDS: FLUOXETINE 20 MG CAP PO SCH (08:03)
[2018-10-20] MEDS: LISINOPRIL 20 MG TAB PO SCH (08:04)
[2018-10-20] MEDS: MECLIZINE HCL 12.5 MG TAB PO SCH ×3 (08:04→18:56)
[2018-10-20] MEDS: FENOFIBRATE 160 MG TAB PO SCH (08:04)
[2018-10-20] MEDS: ASPIRIN 81 MG CHEWABLE TABLET PO SCH (08:04)
[2018-10-20] MEDS: FUROSEMIDE 40 MG TABLET PO SCH (08:04)
[2018-10-20] MEDS: SYMBICORT 160 MCG IH SCH ×2 (08:05→18:57)
[2018-10-20] MEDS: BUSPIRONE HCL 5 MG TABLET PO SCH ×2 (08:05→18:56)
[2018-10-20] MEDS: glipiZIDE 5 MG TAB PO SCH ×2 (08:05→17:31)
[2018-10-20] MEDS ORDERED: ONDANSETRON 4 MG (ODT) TAB PO PRN (10:31)
--- NOTE | 2018-10-20 11:21 | RAD REPORT ---
EXAM DESCRIPTION: RAD - Hip Right 2 View - 10/20/2018 11:13 am CLINICAL HISTORY: increase pain Pain and swelling COMPARISON: No comparisons FINDINGS: Right total hip arthroplasty is present. Skin keren are present laterally. No hardware a bnormality seen.
--- NOTE | 2018-10-20 14:44 | RAD REPORT ---
EXAM DESCRIPTION: RAD - Knee Right 2 View - 10/20/2018 11:12 am CLINICAL HISTORY: Right knee pain FINDINGS: Cortical irregularity and increased density is present within the lateral tibial plateau. This is equivocal for a subtle fracture. CT recommended No dislocation Limited two view series obtained
--- NOTE | 2018-10-20 14:46 | FAST ---
ENCOUNTER DATE AND TIME: 10/20/2018 08:00 (CDT) NAME ANTELMO GORDILLO DATE OF : 1945 DATE OF ADMISSION: 10/15/2018 16:10 (CDT) PHONE: AGE: 72 SSN# [id number] GENDER: Female ENCOUNTER PHYSICIAN: Dr. Edmar Garrett M.D. ADMISSION DIAGNOSIS: - Orthopaedic Disorders 08 - Unilateral Hip Replacement (08.51) Osteoarthritis of right hip. EATING: Activity did not occur on this shift EATING - SCORE: 0-UNK GROOMING: Activity did not occur on this shift GROOMING - SCORE: 0-UNK BATHING: Activity did not occur on this shift BATHING - SCORE: 0-UNK DRESSING - UPPER BODY: Activity did not occur on this shift Patient is not dressing in public clothing ARTICLES SCORE Total number of steps: 0 DRESSING - UPPER BODY - SCORE: 0-UNK DRESSING - LOWER BODY: Activity did not occur on this shift Patient is not dressing in public clothing ARTICLES SCORE Total number of steps: 0 DRESSING - LOWER BODY - SCORE: 0-UNK TOILETING: Activity did not occur on this shift TOILETING - SCORE: 0-UNK BLADDER MANAGEMENT: Activity did not occur on this shift BLADDER MANAGEMENT - SCORE: 7-IND BOWEL MANAGEMENT: Activity did not occur on this shift BOWEL MANAGEMENT - SCORE: 7-IND TRANSFERS: BED, CHAIR, WHEELCHAIR: TRANSFERS: BED, CHAIR, WHEELCHAIR - STEP 1: Does the patient require assistance of a person or device, or need extra time with bed, chair, or whe elchair transfers? Yes. TRANSFERS: BED, CHAIR, WHEELCHAIR - STEP 2: Does the patient require the assistance of a helper? Yes. TRANSFERS: BED, CHAIR, WHEELCHAIR - STEP 3: How much assistance does the patient require from the helper? Only supervision TRANSFERS: BED, CHAIR, WHEELCHAIR - SCORE: 5-SUP TRANSFERS: TOILET: Activity did not occur on this shift TRANSFERS: TOILET - SCORE: 0-UNK TRANSFERS: SHOWER: Activity did not occur on this shift TRANSFERS: SHOWER - SCORE: 0-UNK TRANSFERS: TUB: Activity did not occur on this shift TRANSFERS: TUB - SCORE: 0-UNK LOCOMOTION: WALK: LOCOMOTION: WALK - STEP 1: Does the patient need help from a person or device, or need extra time to walk 150 feet? Yes. LOCOMOTION: WALK - STEP 2: How much assistance does the patient require to walk a minimum of 150 feet? Only supervision, cuing, or coaxing LOCOMOTION: WALK - SCORE: 5-SUP LOCOMOTION: WHEELCHAIR: LOCOMOTION: WHEELCHAIR - STEP 1: Does the patient need help to go 150 feet in a wheelchair? Yes. LOCOMOTION: WHEELCHAIR - STEP 2: How much assistance does the patient need from the helper? Only supervision, cuing, or coaxing LOCOMOTION: WHEELCHAIR - SCORE: 5-SUP LOCOMOTION: STAIRS: Activity did not occur on this shift LOCOMOTION: STAIRS - SCORE: 0-UNK COMPREHENSION: COMPREHENSION - SCORE: 0-UNK EXPRESSION EXPRESSION - SCORE: 0-UNK SOCIAL INTERACTION: SOCIAL INTERACTION - SCORE: 0-UNK PROBLEM SOLVING: PROBLEM SOLVING - SCORE: 0-UNK MEMORY: MEMORY - SCORE: 0-UNK SIGNATURE PANEL: The following modified sections: Transfers: Bed, Chair, Wheelchair - Score, Transfers: Toilet - Score , Locomotion: Walk - Score, Locomotion: Wheelchair - Score, Locomotion: Stairs - Score were [clint chiang] signed by Wily Denney PTA on ThuOct 20 2018 14:45:24 GMT-0500 (Central Daylight Time)
--- NOTE | 2018-10-20 15:51 | FAST ---
SHIFT START DATE/TIME: 10/20/2018 07:00 (CDT) SHIFT END DATE/TIME: 10/20/2018 19:00 (CDT) NAME ANTELMO GORDILLO DATE OF : 1945 DATE OF ADMISSION: 10/15/2018 16:10 (CDT) PHONE: AGE: 72 N# [id number] GENDER: Female ENCOUNTER PHYSICIAN: Dr. Edmar Garrett M.D. ADMISSION DIAGNOSIS: - Orthopaedic Disorders 08 - Unilateral Hip Replacement (08.51) Osteoarthritis of right hip. EATING: EATING - STEP 1: Does the patient require the assistance of a person or device, or need extra time when eating? Yes. EATING - STEP 2: Does the patient require the assistance of a helper? No, patient only requires an assistive device, O R s/he takes more than reasonable time to eat, OR there is a safety concern, OR s/he requires modifie d food consistency EATING - SCORE: 6-LORI GROOMING: GROOMING - STEP 1: Does the patient require the assistance of a person or device, or need extra time when grooming? Yes. GROOMING - STEP 2: Does the patient require the assistance of a helper? No. The patient only requires an assistive devic e, OR takes more than reasonable time to groom, OR there is a concern for safety as the patient groom s GROOMING - SCORE: 6-LORI BATHING: Activity did not occur on this shift BATHING - SCORE: 0-UNK DRESSING - UPPER BODY: Activity did not occur on this shift ARTICLES SCORE Total number of steps: 0 DRESSING - UPPER BODY - SCORE: 0-UNK DRESSING - LOWER BODY: Activity did not occur on this shift ARTICLES SCORE Total number of steps: 0 DRESSING - LOWER BODY - SCORE: 0-UNK TOILETING: TOILETING - STEP 1: Does the patient require the assistance of a person or device, or need extra time with toileting? Yes . TOILETING - STEP 2: Does the patient require the assistance of a helper? Yes. TOILETING - STEP 3: How much assistance does the patient require from the helper? Hands-on assistance from the helper TOILETING - STEP 4: Of the 3 tasks: 1) Adjusting clothing prior to use, 2) Cleansing of perineal area, 3) Adjusting clot jennifer after use; How many tasks does the patient perform WITHOUT assistance of the helper? Two tasks TOILETING - SCORE: 3-MOD BLADDER MANAGEMENT: BLADDER MANAGEMENT - STEP 1: Does the patient control the bladder completely and intentionally without equipment or devices or med ications, and is always continent? No. BLADDER MANAGEMENT - STEP 2: Does the patient require the assistance of a helper? No, patient requires and independently uses an a ssistive device, such as a urinal, bedpan, bedside commode, catheter, absorbent pad, or collecting de vice BLADDER MANAGEMENT - SCORE: 6-LORI BOWEL MANAGEMENT: Activity did not occur on this shift BOWEL MANAGEMENT - SCORE: 7-IND TRANSFERS: BED, CHAIR, WHEELCHAIR: TRANSFERS: BED, CHAIR, WHEELCHAIR - STEP 1: Does the patient require assistance of a person or device, or need extra time with bed, chair, or whe elchair transfers? Yes. TRANSFERS: BED, CHAIR, WHEELCHAIR - STEP 2: Does the patient require the assistance of a helper? Yes. TRANSFERS: BED, CHAIR, WHEELCHAIR - STEP 3: How much assistance does the patient require from the helper? Steadying/guiding assistance TRANSFERS: BED, CHAIR, WHEELCHAIR - SCORE: 4-MIN TRANSFERS: TOILET: TRANSFERS: TOILET - STEP 1: Does the patient require the assistance of a person or device, or need extra time with toilet transfe rs? Yes. TRANSFERS: TOILET - STEP 2: Does the patient require the assistance of a helper? Yes. TRANSFERS: TOILET - STEP 3: How much assistance does the patient require from the helper? Patient performs half or more of the tr ansferring tasks TRANSFERS: TOILET - STEP 4: Does the patient need only incidental help such as contact guard or steadying during toilet transfer? Yes. TRANSFERS: TOILET - SCORE: 4-MIN TRANSFERS: SHOWER: Activity did not occur on this shift TRANSFERS: SHOWER - SCORE: 0-UNK TRANSFERS: TUB: Activity did not occur on this shift TRANSFERS: TUB - SCORE: 0-UNK LOCOMOTION: WALK: Activity did not occur on this shift LOCOMOTION: WALK - SCORE: 0-UNK LOCOMOTION: WHEELCHAIR: Activity did not occur on this shift LOCOMOTION: WHEELCHAIR - SCORE: 0-UNK COMPREHENSION: COMPREHENSION: TYPE: Both COMPREHENSION - STEP 1: Does the patient require help from a person or device, or need extra time to understand complex and a bstract ideas (such as current events, finances, discharge planning, medical issues, relationships, e tc)? No. COMPREHENSION - STEP 2: Does the patient need extra time, require an assistive device (such as glasses for visual comprehensi on or a hearing aid for auditory comprehension) or does s/he have mild difficulty understanding compl ex and abstract information? Yes. COMPREHENSION - SCORE: 6-LORI EXPRESSION EXPRESSION: TYPE: Both EXPRESSION - STEP 1: Does the patient require help from a person or device, or need extra time expressing complex and abst ract ideas (such as current events, finances, discharge planning, medical issues, relationships, etc) ? No. EXPRESSION - STEP 2: Does the patient need extra time, require an assistive device (such as augmentive communication syste m or a communication board), OR does s/he have mild difficulty expressing complex and abstract ideas (including mild dysarthria or mild word-find problems)? Yes. EXPRESSION - SCORE: 6-LORI SOCIAL INTERACTION: SOCIAL INTERACTION - STEP 1: Does the patient require a helper to interact with others in social and therapeutic situations? No. SOCIAL INTERACTION - STEP 2: Does the patient need extra time in social situations, OR does s/he interact with staff, other patien ts, and family members ONLY in structured environments, OR does s/he require medication for social in teraction? Yes, patient needs extra time SOCIAL INTERACTION - SCORE: 6-LORI PROBLEM SOLVING: PROBLEM SOLVING - STEP 1: Does the patient need help from a person or device, or need extra time to solve complex problems such as managing a checking account or confronting interpersonal problems? No. PROBLEM SOLVING - STEP 2: Does the patient require extra time to make decisions or solve problems, OR does s/he have slight dif ficulty reading, initiating, or self-correcting in unfamiliar situations? Yes, patient needs extra ti me. PROBLEM SOLVING - SCORE: 6-LORI MEMORY: MEMORY - STEP 1: Does the patient need help from a person or device, or need extra time to remember frequently encount ered people, daily routines, and executing requests? No. MEMORY - STEP 2: Does the patient have slight difficulty recognizing frequently encountered people, daily routines, or executing requests without the need for repetition or using self-initiated or environmental cues to remember? Yes. MEMORY - SCORE: 6-LORI SIGNATURE PANEL: The following modified sections: Eating - Score, Grooming - Score, Bathing - Score, Dressing - Upper Body - Score, Dressing - Lower Body - Score, Toileting - Score, Bladder Management - Score, Bowel Man agement - Score, Transfers: Bed, Chair, Wheelchair - Score, Transfers: Toilet - Score, Transfers: Irma wer - Score, Transfers: Tub - Score, Locomotion: Walk - Score, Locomotion: Wheelchair - Score, Compre hension - Score, Expression - Score, Social Interaction - Score, Problem Solving - Score, Memory - Sc ore were [electronically] signed by Evaristo Patiño on ThuOct 20 2018 15:50:17 GMT-0500 (Central Daylight Time)
--- NOTE | 2018-10-20 18:19 | R.PN ---
ENCOUNTER DATE AND TIME: 10/20/2018 18:18 (CDT) NAME ANTELMO GORDILLO DATE OF : 1945 DATE OF ADMISSION: 10/15/2018 16:10 (CDT) Osteoarthritis of right hipCHIEF COMPLAINT: Right hip osteoarthritis SUBJECTIVE: Pt denied any depression. Pt denied any Shortness of Breath. Ambulated 300' using a rolling walker with standby assistance. Up and down 5 steps with contact guard assistance. VITAL SIGNS Temperature: 98.6 F SBP/DBP: 121/55 Pulse: 66 Resp: 14 MEDICATION ALLERGIES: No Known Drug Allergies (NKDA) ENVIRONMENTAL ALLERGIES: - Substance Allergies None Known - Other Allergies None Known NURSING: - Shower allowing shower - Lab Results blood Sugar Check ACHS - Skin care per protocol PRECAUTIONS: - Anterior Hip Precaution No abduction No active extension No adduction across midline No external rotation No hip flexion >90 degrees No internal rotation - Weight Bearing Precaution WBAT right LE ACTIVITIES OOB only with supervision THERAPIES: - Dietary and Nutrition Adequate Nutrition. Nutritional Education. Nutritional Supplements. PHYSICAL EXAM - Gen Alert and awake Lying in bed No apparent distress Oriented to: person, time, and place - Skin Surgical site on right thigh shows good hemostasis. Normacephalic - Eyes No abnormalities - Neck No abnormalities - CVS RRR - Chest No abnormalities - Abd + bowel sounds - GI Soft Deferred - No abnormalities - Ext Mild postoperative edema in the right lower extremity - MSK 4+/5 weakness in right lower extremity - Neuro 4/5 strength right lower extremity - Psych No abnormalities ASSESSMENT: Pt. is a 72 yo Right-handed white female.She elected for surgery, and on 10/12/2018 was admitted to [facility] for Right Total Hip Arthroplasty by Dr. Abram Crews.Pt. was admitted to the hospital on 10/20/2018 and underwent Orthopaedic Disorders(Unilateral Hip Replacement ()) by Dr.Dr. Abram Crews without any intraoperative complications.Her impairment category is Orthopaedi c Disorders 08 - Unilateral Hip Replacement ().Pre-morbidly, Pt. was independent/mod-I in Self- Care, Sphincter Control, Transfers Control, Locomotion, Communication, and Social Cognition; and she had good Sphincter Control.Currently, she has deficits of Transfers Control, Locomotion, Communicatio n, Social Cognition, Endurance, Balance, Safety Awareness, and Self-Care.Pt. is now referred to [facility] for acute in-patient rehabilitation in order to maximize patient's funct ional independence in activities of daily living, strength, ROM, and mobility.- Rehab Goal Patient has realistic goal of being discharged at assistance level 6-Watson to reside at Home with Antwon lee. MDM/PLAN: - Physical Therapy Decreased range of motion - to improve, our physical therapists will perform initial evaluation of p t's status upon admission and devise an individualized program for increasing patient's Range of Anil on. Gait dysfunction - to improve, our physical therapists will perform initial evaluation of pt's statu s upon admission and devise an individualized program for Gait Training, and Wheel Chair mobility Inability to transfer - to improve, our physical therapists will perform initial evaluation of pt's status upon admission and devise an individualized program for Bed mobility Need for home safety evaluation - to improve, our physical therapists will perform initial evaluatio n of pt's status upon admission and devise an individualized program for Home Evaluation Need in caregiver upon discharge - to improve, our physical therapists will perform initial evaluati on of pt's status upon admission and devise an individualized program for Caregiver Training New precaution - to improve, our physical therapists will perform initial evaluation of pt's status upon admission and devise an individualized program for Patient precaution education Edema - to improve, our physical therapists will perform initial evaluation of pt's status upon admi ssion and devise an individualized program for Elevation Training, and Lymphedema Therapy Poor balance - to improve, our physical therapists will perform initial evaluation of pt's status up on admission and devise an individualized program for Balance Training Poor endurance - to improve, our physical therapists will perform initial evaluation of pt's status upon admission and devise an individualized program for Endurance Training Weakness - to improve, our physical therapists will perform initial evaluation of pt's status upon a dmission and devise an individualized program for Aquatic Therapy, Neuromuscular Reeducation, and Str engthening Achieving independence - to improve, our physical therapists will perform initial evaluation of pt's status upon admission and devise an individualized program for Community Reintegration Activities - Occupational Therapy ADL deficits - to improve, our occupation therapists will perform initial evaluation of pt's status upon admission and devise an individualized program for Bathing, Bed mobility, Community Reintegratio n, Cooking, Dressing, Eating, Fine Motor Skills, Grooming, Homemaking, Kitchen Mobility, Laundry, Pat ient Education, Safety Awareness, Splinting - Positioning, Transfers(Toilet, Tub, Shower), and Wheel Chair Management Cognitive deficits - to improve, our occupation therapists will perform initial evaluation of pt's s tatus upon admission and devise an individualized program for Cognition - orientation Need for career development facilitator - to improve, our occupation therapists will perform initial evaluation of pt's status upon admission and devise an individualized program for Caregiver Training Weakness - to improve, our occupation therapists will perform initial evaluation of pt's status upon admission and devise an individualized program for Aquatic Therapy, Balance, Endurance, UE ROM, and UE strengthening - Other See attached MAR (Medication Administration Record) - Anterior Hip Precaution No abduction No active extension No adduction across midline No external rotation No hip flexion >90 degrees No internal rotation - Diet - Liquid Texture Continue Regular - Tube Feed Continue N/A - Diet Type Continue Regular - Posterior Hip Precaution No adduction across midline No external rotation No hip flexion >90 degrees No internal rotation No wheel chair propulsion - Lab Results blood Sugar Check ACHS - Weight Bearing Precaution WBAT right LE - Skin care per protocol - Diet - Solid Texture Continue Regular - Shower allowing shower FUNCTIONAL STATUS: UPDATED AT WEEKLY TEAM CONFERENCE - Bladder Same accident frequency: 7-Ind - No accidents in the past 7 days - Bowel Same accident frequency: 7-Ind - No accidents in the past 7 days - Walking Same score based on distance walked: 3(>=150ft) - Wheelchair Same score based on distance traveled: 1(<=50ft) FUNCTIONAL STATUS: - Self-Care A. Eating Ind B. Grooming Ind C. Bathing Ind D. Dressing - Upper Ind E. Dressing - Lower Hayley F. Toileting Hayley - Sphincter Control G: Bladder control Ind H: Bowel control Ind - Transfers Control I. Bed/Chair/Wheelchair Hayley J. Toilet Hayley K. Tub/Shower Hayley - Locomotion L. Walk/Wheelchair (C) modA L. Walk/Wheelchair (W) sup M. Stairs ADNO - Communication N. Comprehension (B) Hayley O. Expression (B) Hayley - Social Cognition P. Social Interaction Hayley Q. Problem Solving Hayley R. Memory Hayley - Endurance Poor - Balance Poor - Safety Awareness Poor CURRENT FUNC. DEFICITS: Transfers Control, Locomotion, Communication, Social Cognition, Endurance, Balance, Safety Awareness, and Self-Care SIGNATURE PANEL: (CDT)
[2018-10-20] MEDS: SENOSIDES 8.6 MG TAB PO SCH (18:55)
--- NOTE | 2018-10-20 18:55 | RAD REPORT ---
EXAM DESCRIPTION: CT - Knee Right Wo Cont - 10/20/2018 6:42 pm CLINICAL HISTORY: increase pain , hx of fall Knee pain and swelling after fall COMPARISON: No comparisons FINDINGS: The bones are diffusely osteoporotic. Severe osteoarthritis is present involving the lateral compartment with [id number]. No acute fracture or subluxation. A small joint effusion is present. IMPRESSION: Diffuse osteopenia without evidence of acute finding. Severe osteoarthritis lateral comp artment. All CT scans are performed using dose optimization technique as appropriate and may include automated exposure control or mA/KV adjustment according to patient size.
[2018-10-20] MEDS: MELATONIN 5 MG TABLET PO PRN (18:56)
[2018-10-20] MEDS: ATORVASTATIN 10 MG TAB PO SCH (18:56)
[2018-10-20] MEDS: PROMOD 30 ML DOSE PO SCH (18:57)
[2018-10-21] MEDS: CARVEDILOL 25 MG TAB PO SCH ×2 (05:20→17:17)
[2018-10-21 06:01] LABS: Absolute Lymphocytes (CBC) 1.5 K/uL (0.7-4.9); Basophils % 0.3 % (0-1.3); Hematocrit 28.4 % (36.0-45.0); Lymphocytes % 20.3 % (15.3-44.8); MPV 9.3 fL (7.6-11.3); RBC Red Blood Cell Count 3.12 M/uL (3.86-4.86)
[2018-10-21 06:18] LABS: Albumin 2.6 g/dL (3.4-5.0); BUN Blood Urea Nitrogen 13 mg/dL (7-18); Bicarbonate 32 mmol/L (21-32); Glucose Level 94 mg/dL (74-106); Magnesium 1.9 mg/dL (1.8-2.4); Potassium 3.7 mmol/L (3.5-5.1); Prealbumin 12.9 mg/dL (20-40); Sodium Level 140 mmol/L (136-145)
[2018-10-21] MEDS: METHOCARBAMOL 500 MG TAB PO SCH ×2 (07:18→18:53)
[2018-10-21] MEDS: INSULIN -REGULAR HUMAN 50 UNIT/0.5 ML ML SQ SCH ×4 (07:30→20:09)
[2018-10-21] MEDS: LISINOPRIL 20 MG TAB PO SCH (08:00)
[2018-10-21] MEDS: PROMOD 30 ML DOSE PO SCH ×2 (08:32→18:54)
[2018-10-21] MEDS: HYDROCODONE/APAP 10/325 TAB PO PRN ×2 (08:32→15:18)
[2018-10-21] MEDS: BUSPIRONE HCL 5 MG TABLET PO SCH ×2 (09:22→18:52)
[2018-10-21] MEDS: LIPASE/PROTEASE/AMYLASE CAP PO SCH ×3 (09:23→18:53)
[2018-10-21] MEDS: FLUOXETINE 20 MG CAP PO SCH (09:23)
[2018-10-21] MEDS: DIGOXIN 0.125 MG TABLET PO SCH (09:23)
[2018-10-21] MEDS: APIXABAN 2.5 MG TABLET PO SCH ×2 (09:24→18:53)
[2018-10-21] MEDS: POTASSIUM CL SA 10 MEQ TAB PO SCH (09:24)
[2018-10-21] MEDS: MECLIZINE HCL 12.5 MG TAB PO SCH ×3 (09:24→18:53)
[2018-10-21] MEDS: FUROSEMIDE 40 MG TABLET PO SCH (09:25)
[2018-10-21] MEDS: CRANBERRY FRUIT EXTRACT 200 MG CAP PO SCH ×2 (09:25→18:53)
[2018-10-21] MEDS: glipiZIDE 5 MG TAB PO SCH ×2 (09:26→17:18)
[2018-10-21] MEDS: LIDOCAINE 5% PATCH TOP SCH (09:27)
[2018-10-21] MEDS: ASPIRIN 81 MG CHEWABLE TABLET PO SCH (09:27)
[2018-10-21] MEDS: GABAPENTIN 300 MG CAP PO SCH ×2 (09:28→18:54)
[2018-10-21] MEDS: SYMBICORT 160 MCG IH SCH ×2 (09:29→18:52)
[2018-10-21] MEDS: FENOFIBRATE 160 MG TAB PO SCH (09:29)
--- NOTE | 2018-10-21 10:38 | FAST ---
SHIFT START DATE/TIME: 10/21/2018 07:00 (CDT) SHIFT END DATE/TIME: 10/21/2018 19:00 (CDT) NAME ANTELMO GORDILLO DATE OF : 1945 DATE OF ADMISSION: 10/15/2018 16:10 (CDT) PHONE: AGE: 72 N# [id number] GENDER: Female ENCOUNTER PHYSICIAN: Dr. Edmar Garrett M.D. ADMISSION DIAGNOSIS: - Orthopaedic Disorders 08 - Unilateral Hip Replacement (08.51) Osteoarthritis of right hip. EATING: EATING - STEP 1: Does the patient require the assistance of a person or device, or need extra time when eating? Yes. EATING - STEP 2: Does the patient require the assistance of a helper? Yes. EATING - STEP 3: Does the patient perform half or more of the eating tasks? Yes. EATING - STEP 4: Does the patient need only supervision, cuing, coaxing OR help to apply an orthosis OR help to cut fo od, open containers, pour liquids, or butter bread? Yes. EATING - SCORE: 5-SUP GROOMING: Activity did not occur on this shift GROOMING - SCORE: 0-UNK BATHING: Activity did not occur on this shift BATHING - SCORE: 0-UNK DRESSING - UPPER BODY: Activity did not occur on this shift ARTICLES SCORE Total number of steps: 0 DRESSING - UPPER BODY - SCORE: 0-UNK DRESSING - LOWER BODY: Activity did not occur on this shift ARTICLES SCORE Total number of steps: 0 DRESSING - LOWER BODY - SCORE: 0-UNK TOILETING: TOILETING - STEP 1: Does the patient require the assistance of a person or device, or need extra time with toileting? Yes . TOILETING - STEP 2: Does the patient require the assistance of a helper? Yes. TOILETING - STEP 3: How much assistance does the patient require from the helper? Hands-on assistance from the helper TOILETING - STEP 4: Of the 3 tasks: 1) Adjusting clothing prior to use, 2) Cleansing of perineal area, 3) Adjusting clot jennifer after use; How many tasks does the patient perform WITHOUT assistance of the helper? Three tasks with steadying assistance from the helper TOILETING - SCORE: 4-MIN BLADDER MANAGEMENT: BLADDER MANAGEMENT - STEP 1: Does the patient control the bladder completely and intentionally without equipment or devices or med ications, and is always continent? No. BLADDER MANAGEMENT - STEP 2: Does the patient require the assistance of a helper? No, patient requires and independently uses an a ssistive device, such as a urinal, bedpan, bedside commode, catheter, absorbent pad, or collecting de vice BLADDER MANAGEMENT - SCORE: 6-LORI BLADDER MANAGEMENT - FREQUENCY OF ACCIDENTS: BLADDER MANAGEMENT(FA) - STEP 1: How many accidents has the patient had during the current shift? 2 BOWEL MANAGEMENT: BOWEL MANAGEMENT - STEP 1: Does the patient control bowels completely and intentionally without equipment devices or medications AND is always continent? Yes. BOWEL MANAGEMENT - SCORE: 7-IND TRANSFERS: BED, CHAIR, WHEELCHAIR: TRANSFERS: BED, CHAIR, WHEELCHAIR - STEP 1: Does the patient require assistance of a person or device, or need extra time with bed, chair, or whe elchair transfers? Yes. TRANSFERS: BED, CHAIR, WHEELCHAIR - STEP 2: Does the patient require the assistance of a helper? Yes. TRANSFERS: BED, CHAIR, WHEELCHAIR - STEP 3: How much assistance does the patient require from the helper? Steadying/guiding assistance TRANSFERS: BED, CHAIR, WHEELCHAIR - SCORE: 4-MIN TRANSFERS: TOILET: TRANSFERS: TOILET - STEP 1: Does the patient require the assistance of a person or device, or need extra time with toilet transfe rs? Yes. TRANSFERS: TOILET - STEP 2: Does the patient require the assistance of a helper? Yes. TRANSFERS: TOILET - STEP 3: How much assistance does the patient require from the helper? Patient performs half or more of the tr ansferring tasks TRANSFERS: TOILET - STEP 4: Does the patient need only incidental help such as contact guard or steadying during toilet transfer? No. Patient needs more than incidental help TRANSFERS: TOILET - SCORE: 3-MOD TRANSFERS: SHOWER: Activity did not occur on this shift TRANSFERS: SHOWER - SCORE: 0-UNK TRANSFERS: TUB: Activity did not occur on this shift TRANSFERS: TUB - SCORE: 0-UNK LOCOMOTION: WALK: Activity did not occur on this shift LOCOMOTION: WALK - SCORE: 0-UNK LOCOMOTION: WHEELCHAIR: Activity did not occur on this shift LOCOMOTION: WHEELCHAIR - SCORE: 0-UNK COMPREHENSION: COMPREHENSION: TYPE: Both COMPREHENSION - STEP 1: Does the patient require help from a person or device, or need extra time to understand complex and a bstract ideas (such as current events, finances, discharge planning, medical issues, relationships, e tc)? No. COMPREHENSION - STEP 2: Does the patient need extra time, require an assistive device (such as glasses for visual comprehensi on or a hearing aid for auditory comprehension) or does s/he have mild difficulty understanding compl ex and abstract information? Yes. COMPREHENSION - SCORE: 6-LORI EXPRESSION EXPRESSION: TYPE: Both EXPRESSION - STEP 1: Does the patient require help from a person or device, or need extra time expressing complex and abst ract ideas (such as current events, finances, discharge planning, medical issues, relationships, etc) ? No. EXPRESSION - STEP 2: Does the patient need extra time, require an assistive device (such as augmentive communication syste m or a communication board), OR does s/he have mild difficulty expressing complex and abstract ideas (including mild dysarthria or mild word-find problems)? No. EXPRESSION - SCORE: 7-IND SOCIAL INTERACTION: SOCIAL INTERACTION - STEP 1: Does the patient require a helper to interact with others in social and therapeutic situations? No. SOCIAL INTERACTION - STEP 2: Does the patient need extra time in social situations, OR does s/he interact with staff, other patien ts, and family members ONLY in structured environments, OR does s/he require medication for social in teraction? Yes, patient needs extra time SOCIAL INTERACTION - SCORE: 6-LORI PROBLEM SOLVING: PROBLEM SOLVING - STEP 1: Does the patient need help from a person or device, or need extra time to solve complex problems such as managing a checking account or confronting interpersonal problems? No. PROBLEM SOLVING - STEP 2: Does the patient require extra time to make decisions or solve problems, OR does s/he have slight dif ficulty reading, initiating, or self-correcting in unfamiliar situations? Yes, patient needs extra ti me. PROBLEM SOLVING - SCORE: 6-LORI MEMORY: MEMORY - STEP 1: Does the patient need help from a person or device, or need extra time to remember frequently encount ered people, daily routines, and executing requests? No. MEMORY - STEP 2: Does the patient have slight difficulty recognizing frequently encountered people, daily routines, or executing requests without the need for repetition or using self-initiated or environmental cues to remember? Yes. MEMORY - SCORE: 6-LORI SIGNATURE PANEL: The following modified sections: Eating - Score, Grooming - Score, Bathing - Score, Dressing - Upper Body - Score, Dressing - Lower Body - Score, Toileting - Score, Bladder Management - Score, Bowel Man agement - Score, Transfers: Bed, Chair, Wheelchair - Score, Transfers: Toilet - Score, Transfers: Irma wer - Score, Transfers: Tub - Score, Locomotion: Walk - Score, Locomotion: Wheelchair - Score, Compre hension - Score, Expression - Score, Social Interaction - Score, Problem Solving - Score, Memory - Sc ore were [electronically] signed by Evaristo Patiño on ThuOct 21 2018 10:37:30 GMT-0500 (Central Daylight Time)
[2018-10-21] MEDS: TRAMADOL HCL 50 MG TAB PO PRN (12:22)
[2018-10-21] MEDS: MELATONIN 5 MG TABLET PO PRN (18:54)
[2018-10-21] MEDS: ATORVASTATIN 10 MG TAB PO SCH (18:54)
[2018-10-21] MEDS: SENOSIDES 8.6 MG TAB PO SCH (18:55)
[2018-10-22] MEDS: CARVEDILOL 25 MG TAB PO SCH ×2 (05:06→16:48)
[2018-10-22] MEDS: INSULIN -REGULAR HUMAN 50 UNIT/0.5 ML ML SQ SCH ×4 (07:30→20:55)
[2018-10-22] MEDS: HYDROCODONE/APAP 10/325 TAB PO PRN ×4 (07:43→22:20)
[2018-10-22] MEDS: DIGOXIN 0.125 MG TABLET PO SCH (07:44)
[2018-10-22] MEDS: PROMOD 30 ML DOSE PO SCH ×2 (07:45→19:52)
[2018-10-22] MEDS: METHOCARBAMOL 500 MG TAB PO SCH ×2 (07:45→21:13)
[2018-10-22] MEDS: FLUOXETINE 20 MG CAP PO SCH (07:46)
[2018-10-22] MEDS: MECLIZINE HCL 12.5 MG TAB PO SCH ×3 (07:46→21:14)
[2018-10-22] MEDS: BUSPIRONE HCL 5 MG TABLET PO SCH ×2 (07:46→19:50)
[2018-10-22] MEDS: CRANBERRY FRUIT EXTRACT 200 MG CAP PO SCH ×2 (07:46→19:50)
[2018-10-22] MEDS: LIPASE/PROTEASE/AMYLASE CAP PO SCH ×3 (07:46→20:54)
[2018-10-22] MEDS: FUROSEMIDE 40 MG TABLET PO SCH (07:47)
[2018-10-22] MEDS: LISINOPRIL 20 MG TAB PO SCH (07:47)
[2018-10-22] MEDS: ASPIRIN 81 MG CHEWABLE TABLET PO SCH (07:47)
[2018-10-22] MEDS: FERROUS SULFATE 325 MG TAB PO SCH (07:47)
[2018-10-22] MEDS: FENOFIBRATE 160 MG TAB PO SCH (07:48)
[2018-10-22] MEDS: glipiZIDE 5 MG TAB PO SCH ×2 (07:48→16:27)
[2018-10-22] MEDS: FE SULF/FA/VIT B COMP & C TAB PO SCH (07:48)
[2018-10-22] MEDS: POTASSIUM CL SA 10 MEQ TAB PO SCH (07:48)
[2018-10-22] MEDS: APIXABAN 2.5 MG TABLET PO SCH ×2 (07:48→19:51)
[2018-10-22] MEDS: GABAPENTIN 300 MG CAP PO SCH ×2 (07:48→19:51)
[2018-10-22] MEDS: SYMBICORT 160 MCG IH SCH ×2 (07:51→19:52)
--- NOTE | 2018-10-22 09:39 | P.RH.PN ---
Estimated Length of Stay: 10 Expected Discharge Date: 10/24/18 Discharge Disposition Plan: Home Family Support: Yes Shelter Goal: Mobility, Transfers, Self Care Vital Signs: Last Vital Signs Temp 97.9 F 10/22/18 06:40 Pulse 68 10/22/18 07:47 Resp 16 10/22/18 07:45 BP 143/69 H 10/22/18 07:47 Pulse Ox 94 10/22/18 07:45 Laboratory: Laboratory Last Values WBC 7.6 K/uL (4.3-10.9) 10/21/18 05:35 RBC 3.12 M/uL (3.86-4.86) L 10/21/18 05:35 Hgb 9.7 g/dL (12.0-15.0) L 10/21/18 05:35 Hct 28.4 % (36.0-45.0) L 10/21/18 05:35 MCV 91.0 fL (80-100) 10/21/18 05:35 MCH 31.2 pg (27.0-35.0) 10/21/18 05:35 MCHC 34.2 g/dL (32.0-36.0) 10/21/18 05:35 RDW 12.6 % (12.1-15.2) 10/21/18 05:35 Plt Count 249 K/uL (152-406) D 10/21/18 05:35 MPV 9.3 fL (7.6-11.3) 10/21/18 05:35 Neutrophils % 65.7 % (41.7-73.7) 10/21/18 05:35 Lymphocytes % 20.3 % (15.3-44.8) 10/21/18 05:35 Monocytes % 11.1 % (3.3-12.3) 10/21/18 05:35 Eosinophils % 2.6 % (0-4.4) 10/21/18 05:35 Basophils % 0.3 % (0-1.3) 10/21/18 05:35 Absolute Neutrophils 5.0 K/uL (1.8-8.0) 10/21/18 05:35 Absolute Lymphocytes 1.5 K/uL (0.7-4.9) 10/21/18 05:35 Absolute Monocytes 0.8 K/uL (0.1-1.3) 10/21/18 05:35 Absolute Eosinophils 0.2 K/uL (0-0.5) 10/21/18 05:35 Absolute Basophils 0.0 K/uL (0-0.5) 10/21/18 05:35 Sodium 140 mmol/L (136-145) 10/21/18 05:30 Potassium 3.7 mmol/L (3.5-5.1) 10/21/18 05:30 Chloride 105 mmol/L (98-107) 10/21/18 05:30 Carbon Dioxide 32 mmol/L (21-32) 10/21/18 05:30 BUN 13 mg/dL (7-18) 10/21/18 05:30 Creatinine 0.46 mg/dL (0.55-1.3) L 10/21/18 05:30 Estimated GFR > 90 mL/min (=/>90) 10/21/18 05:30 Glucose 94 mg/dL (74-106) 10/21/18 05:30 POC Glucose 117 mg/dl (65-120) 10/22/18 07:27 Calcium 8.7 mg/dL (8.5-10.1) 10/21/18 05:30 Magnesium 1.9 mg/dL (1.8-2.4) 10/21/18 05:30 Albumin 2.6 g/dL (3.4-5.0) L 10/21/18 05:30 Prealbumin 12.9 mg/dL (20-40) L 10/21/18 05:30 Urine Color Yellow 10/15/18 19:15 Urine Appearance Clear 10/15/18 19:15 Urine pH 6.0 (5.0-7.0) 10/15/18 19:15 Ur Specific [place] 1.020 (1.005-1.030) 10/15/18 19:15 Urine Ketones Negative (NEG) 10/15/18 19:15 Urine Blood Negative (NEG) 10/15/18 19:15 Urine Nitrite Negative (NEG) 10/15/18 19:15 Urine Bilirubin Negative (NEG) 10/15/18 19:15 Urine Urobilinogen 1.0 mg/dL (0.2-1.0) 10/15/18 19:15 Ur Leukocyte Esterase Trace (NEG) H 10/15/18 19:15 Urine RBC None seen /HPF (NONE SEEN) 10/15/18 19:15 Urine WBC 5-10 /HPF (<5) H 10/15/18 19:15 Ur Squamous Epith Cells 10-20 /HPF (NONE SEEN) H 10/15/18 19:15 Urine Bacteria <20 /HPF (<20) 10/15/18 19:15 Urine Culture Reflexed Reflexed 10/15/18 19:15 Urine Glucose Trace (NEG) 10/15/18 19:15 Urine Total Protein Negative (NEG) 10/15/18 19:15 Weight: 133 lb Wound Present: Yes Closed Surgical Incision Present: Yes Negative Pressure Wound Therapy Present: No Physician Update: Labs reviewed and are stable. Hgb is mildly low, on hemocyte plus. Prealbumin is mildly low, on promod. She has severe osteoarthritis on the right knee causing marked pain. She has a pain patch and gabapentin 600 mg bid. She will be discharged home on Thursday. Ambulating 250' with standby assistance. Medical Issues: DVT Prophylaxis - Eliquis 2.5mg BID PO Pain Issues: Gabapentin 600mg BID PO. [place] 10/325mg Q4H PRN PO. Lidoderm patch 5% Daily Comment: Defibrillator in place to left upper chest - surgical scar Functional Improvement: Patient is showing good progress toward long-term goals , and is showing good overall improvement w/ technique and safety awareness. 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 Please see the Rehabilitation Signature page for all necessary signatures.
[2018-10-22] MEDS: LIDOCAINE 5% PATCH TOP SCH (11:00)
--- NOTE | 2018-10-22 14:53 | FAST ---
ENCOUNTER DATE AND TIME: 10/22/2018 08:00 (CDT) NAME ANTELMO GORDILLO DATE OF : 1945 DATE OF ADMISSION: 10/15/2018 16:10 (CDT) PHONE: AGE: 72 SSN# [id number] GENDER: Female ENCOUNTER PHYSICIAN: Dr. Edmar Garrett M.D. ADMISSION DIAGNOSIS: - Orthopaedic Disorders 08 - Unilateral Hip Replacement (08.51) Osteoarthritis of right hip. EATING: Activity did not occur on this shift EATING - SCORE: 0-UNK GROOMING: Comb/brush hair Patient applied make-up Wash, rinse, and dry face Wash, rinse, and dry hands GROOMING - STEP 1: Does the patient require the assistance of a person or device, or need extra time when grooming? No. GROOMING - SCORE: 7-IND BATHING: Abdomen Buttocks Chest Left arm Left lower leg and foot Left upper leg Perineal area Right arm Right lower leg and foot Right upper leg BATHING - STEP 1: Does the patient require the assistance of a person or device, or need extra time when bathing? Yes. BATHING - STEP 2: Does the patient require the assistance of a helper? Yes. BATHING - STEP 3: How much assistance does the patient require from the helper? Only supervision, cuing, coaxing, instr uctions, encouragement BATHING - SCORE: 5-SUP DRESSING - UPPER BODY: T-shirt/pullover shirt (four steps) ARTICLES SCORE Total number of steps: 4 DRESSING - UPPER BODY - STEP 1: Does the patient require help from a person or device, or need extra time when dressing above the shaw st? No. DRESSING - UPPER BODY - SCORE: 7-IND DRESSING - LOWER BODY: Elastic waist pants (three steps) Sock - Left foot (one step) Sock - Right foot (one step) Underwear (three steps) ARTICLES SCORE Total number of steps: 8 DRESSING - LOWER BODY - STEP 1: Does the patient require help from a person or device, or need extra time when dressing below the shaw st? Yes. DRESSING - LOWER BODY - STEP 2: Does the patient require the assistance of a helper? Yes. DRESSING - LOWER BODY - STEP 3: Does the helper touch the patient while dressing? No. DRESSING - LOWER BODY - SCORE: 5-SUP TOILETING: TOILETING - STEP 1: Does the patient require the assistance of a person or device, or need extra time with toileting? Yes . TOILETING - STEP 2: Does the patient require the assistance of a helper? No. TOILETING - SCORE: 6-LORI BLADDER MANAGEMENT: Activity did not occur on this shift BLADDER MANAGEMENT - SCORE: 7-IND BOWEL MANAGEMENT: Activity did not occur on this shift BOWEL MANAGEMENT - SCORE: 7-IND TRANSFERS: BED, CHAIR, WHEELCHAIR: Activity did not occur on this shift TRANSFERS: BED, CHAIR, WHEELCHAIR - SCORE: 0-UNK TRANSFERS: TOILET: TRANSFERS: TOILET - STEP 1: Does the patient require the assistance of a person or device, or need extra time with toilet transfe rs? Yes. TRANSFERS: TOILET - STEP 2: Does the patient require the assistance of a helper? No. Patient only requires an assistive device santoyo ch as a grab bar or special seat, OR s/he takes more than reasonable time to perform toilet transfers , OR there is a safety concern when s/he performs toilet transfers. TRANSFERS: TOILET - SCORE: 6-LORI TRANSFERS: SHOWER: Activity did not occur on this shift TRANSFERS: SHOWER - SCORE: 0-UNK TRANSFERS: TUB: TRANSFERS: TUB - STEP 1: Does the patient require the assistance of a person or device, or need extra time with tub transfers? Yes. TRANSFERS: TUB - STEP 2: Does the patient require the assistance of a helper? Yes. TRANSFERS: TUB - STEP 3: How much assistance does the patient require from the helper? Only supervision, cuing, coaxing, or he lp to set out transfer equipment or to lock brakes and/or lift foot rests TRANSFERS: TUB - SCORE: 5-SUP LOCOMOTION: WALK: Activity did not occur on this shift LOCOMOTION: WALK - SCORE: 0-UNK LOCOMOTION: WHEELCHAIR: Activity did not occur on this shift LOCOMOTION: WHEELCHAIR - SCORE: 0-UNK LOCOMOTION: STAIRS: Activity did not occur on this shift LOCOMOTION: STAIRS - SCORE: 0-UNK COMPREHENSION: COMPREHENSION: TYPE: Visual COMPREHENSION - STEP 1: Does the patient require help from a person or device, or need extra time to understand complex and a bstract ideas (such as current events, finances, discharge planning, medical issues, relationships, e tc)? No. COMPREHENSION - STEP 2: Does the patient need extra time, require an assistive device (such as glasses for visual comprehensi on or a hearing aid for auditory comprehension) or does s/he have mild difficulty understanding compl ex and abstract information? Yes. COMPREHENSION - SCORE: 6-LORI EXPRESSION EXPRESSION: TYPE: Non-Vocal EXPRESSION - STEP 1: Does the patient require help from a person or device, or need extra time expressing complex and abst ract ideas (such as current events, finances, discharge planning, medical issues, relationships, etc) ? No. EXPRESSION - STEP 2: Does the patient need extra time, require an assistive device (such as augmentive communication syste m or a communication board), OR does s/he have mild difficulty expressing complex and abstract ideas (including mild dysarthria or mild word-find problems)? No. EXPRESSION - SCORE: 7-IND SOCIAL INTERACTION: SOCIAL INTERACTION - STEP 1: Does the patient require a helper to interact with others in social and therapeutic situations? No. SOCIAL INTERACTION - STEP 2: Does the patient need extra time in social situations, OR does s/he interact with staff, other patien ts, and family members ONLY in structured environments, OR does s/he require medication for social in teraction? No. SOCIAL INTERACTION - SCORE: 7-IND PROBLEM SOLVING: PROBLEM SOLVING - STEP 1: Does the patient need help from a person or device, or need extra time to solve complex problems such as managing a checking account or confronting interpersonal problems? No. PROBLEM SOLVING - STEP 2: Does the patient require extra time to make decisions or solve problems, OR does s/he have slight dif ficulty reading, initiating, or self-correcting in unfamiliar situations? Yes, patient needs extra ti me. PROBLEM SOLVING - SCORE: 6-LOIR MEMORY: MEMORY - STEP 1: Does the patient need help from a person or device, or need extra time to remember frequently encount ered people, daily routines, and executing requests? No. MEMORY - STEP 2: Does the patient have slight difficulty recognizing frequently encountered people, daily routines, or executing requests without the need for repetition or using self-initiated or environmental cues to remember? Yes. MEMORY - SCORE: 6-LORI SIGNATURE PANEL: The following modified sections: Eating - Score, Grooming - Score, Bathing - Score, Dressing - Upper Body - Score, Dressing - Lower Body - Score, Toileting - Score, Transfers: Bed, Chair, Wheelchair - S core, Transfers: Toilet - Score, Transfers: Shower - Score, Transfers: Tub - Score, Comprehension - S core, Expression - Score, Social Interaction - Score, Problem Solving - Score, Memory - Score were [e lectronically] signed by FRED Patterson on ThuOct 22 2018 14:52:12 [facility]-0500 ([facility] Time)
--- NOTE | 2018-10-22 14:58 | FAST ---
ENCOUNTER DATE AND TIME: 10/21/2018 08:00 (CDT) NAME ANTELMO GORDILLO DATE OF : 1945 DATE OF ADMISSION: 10/15/2018 16:10 (CDT) PHONE: AGE: 72 SSN# [id number] GENDER: Female ENCOUNTER PHYSICIAN: Dr. Edmar Garrett M.D. ADMISSION DIAGNOSIS: - Orthopaedic Disorders 08 - Unilateral Hip Replacement (08.51) Osteoarthritis of right hip. EATING: Activity did not occur on this shift EATING - SCORE: 0-UNK GROOMING: Activity did not occur on this shift GROOMING - SCORE: 0-UNK BATHING: Activity did not occur on this shift BATHING - SCORE: 0-UNK DRESSING - UPPER BODY: Activity did not occur on this shift Patient is not dressing in public clothing ARTICLES SCORE Total number of steps: 0 DRESSING - UPPER BODY - SCORE: 0-UNK DRESSING - LOWER BODY: Activity did not occur on this shift Patient is not dressing in public clothing ARTICLES SCORE Total number of steps: 0 DRESSING - LOWER BODY - SCORE: 0-UNK TOILETING: Activity did not occur on this shift TOILETING - SCORE: 0-UNK BLADDER MANAGEMENT: Activity did not occur on this shift BLADDER MANAGEMENT - SCORE: 7-IND BOWEL MANAGEMENT: Activity did not occur on this shift BOWEL MANAGEMENT - SCORE: 7-IND TRANSFERS: BED, CHAIR, WHEELCHAIR: TRANSFERS: BED, CHAIR, WHEELCHAIR - STEP 1: Does the patient require assistance of a person or device, or need extra time with bed, chair, or whe elchair transfers? Yes. TRANSFERS: BED, CHAIR, WHEELCHAIR - STEP 2: Does the patient require the assistance of a helper? Yes. TRANSFERS: BED, CHAIR, WHEELCHAIR - STEP 3: How much assistance does the patient require from the helper? Only supervision TRANSFERS: BED, CHAIR, WHEELCHAIR - SCORE: 5-SUP TRANSFERS: TOILET: Activity did not occur on this shift TRANSFERS: TOILET - SCORE: 0-UNK TRANSFERS: SHOWER: Activity did not occur on this shift TRANSFERS: SHOWER - SCORE: 0-UNK TRANSFERS: TUB: Activity did not occur on this shift TRANSFERS: TUB - SCORE: 0-UNK LOCOMOTION: WALK: LOCOMOTION: WALK - STEP 1: Does the patient need help from a person or device, or need extra time to walk 150 feet? Yes. LOCOMOTION: WALK - STEP 2: How much assistance does the patient require to walk a minimum of 150 feet? Only supervision, cuing, or coaxing LOCOMOTION: WALK - SCORE: 5-SUP LOCOMOTION: WHEELCHAIR: LOCOMOTION: WHEELCHAIR - STEP 1: Does the patient need help to go 150 feet in a wheelchair? Yes. LOCOMOTION: WHEELCHAIR - STEP 2: How much assistance does the patient need from the helper? Only supervision, cuing, or coaxing LOCOMOTION: WHEELCHAIR - SCORE: 5-SUP LOCOMOTION: STAIRS: LOCOMOTION: STAIRS - STEP 1: Does the patient need help to go up and down 12 to 14 stairs? Yes. LOCOMOTION: STAIRS - STEP 2: How much assistance does the patient need from the helper to go a minimum of 12 to 14 stairs? The pat ient goes less than 12 stairs, but at least 4 stairs LOCOMOTION: STAIRS - SCORE: 2-MAX COMPREHENSION: COMPREHENSION - SCORE: 0-UNK EXPRESSION EXPRESSION - SCORE: 0-UNK SOCIAL INTERACTION: SOCIAL INTERACTION - SCORE: 0-UNK PROBLEM SOLVING: PROBLEM SOLVING - SCORE: 0-UNK MEMORY: MEMORY - SCORE: 0-UNK SIGNATURE PANEL: The following modified sections: Transfers: Bed, Chair, Wheelchair - Score, Transfers: Toilet - Score , Locomotion: Walk - Score, Locomotion: Wheelchair - Score, Locomotion: Stairs - Score were [clint chiang] signed by Wily Denney PTA on ThuOct 22 2018 14:57:49 GMT-0500 (Central Daylight Time)
--- NOTE | 2018-10-22 15:02 | FAST ---
ENCOUNTER DATE AND TIME: 10/22/2018 08:00 (CDT) NAME ANTELMO GORDILLO DATE OF : 1945 DATE OF ADMISSION: 10/15/2018 16:10 (CDT) PHONE: AGE: 72 SSN# [id number] GENDER: Female ENCOUNTER PHYSICIAN: Dr. Edmar Garrett M.D. ADMISSION DIAGNOSIS: - Orthopaedic Disorders 08 - Unilateral Hip Replacement (08.51) Osteoarthritis of right hip. EATING: Activity did not occur on this shift EATING - SCORE: 0-UNK GROOMING: Activity did not occur on this shift GROOMING - SCORE: 0-UNK BATHING: Activity did not occur on this shift BATHING - SCORE: 0-UNK DRESSING - UPPER BODY: Activity did not occur on this shift Patient is not dressing in public clothing ARTICLES SCORE Total number of steps: 0 DRESSING - UPPER BODY - SCORE: 0-UNK DRESSING - LOWER BODY: Activity did not occur on this shift Patient is not dressing in public clothing ARTICLES SCORE Total number of steps: 0 DRESSING - LOWER BODY - SCORE: 0-UNK TOILETING: Activity did not occur on this shift TOILETING - SCORE: 0-UNK BLADDER MANAGEMENT: Activity did not occur on this shift BLADDER MANAGEMENT - SCORE: 7-IND BOWEL MANAGEMENT: Activity did not occur on this shift BOWEL MANAGEMENT - SCORE: 7-IND TRANSFERS: BED, CHAIR, WHEELCHAIR: TRANSFERS: BED, CHAIR, WHEELCHAIR - STEP 1: Does the patient require assistance of a person or device, or need extra time with bed, chair, or whe elchair transfers? Yes. TRANSFERS: BED, CHAIR, WHEELCHAIR - STEP 2: Does the patient require the assistance of a helper? No. Patient only requires an assistive device fo r bed, chair, wheelchair transfers such as a sliding board, grab bar, or brace, OR s/he takes more th an reasonable time, OR there is a safety concern when s/he performs the transfers TRANSFERS: BED, CHAIR, WHEELCHAIR - SCORE: 6-LORI TRANSFERS: TOILET: Activity did not occur on this shift TRANSFERS: TOILET - SCORE: 0-UNK TRANSFERS: SHOWER: Activity did not occur on this shift TRANSFERS: SHOWER - SCORE: 0-UNK TRANSFERS: TUB: Activity did not occur on this shift TRANSFERS: TUB - SCORE: 0-UNK LOCOMOTION: WALK: LOCOMOTION: WALK - STEP 1: Does the patient need help from a person or device, or need extra time to walk 150 feet? Yes. LOCOMOTION: WALK - STEP 2: How much assistance does the patient require to walk a minimum of 150 feet? Only supervision, cuing, or coaxing LOCOMOTION: WALK - SCORE: 5-SUP LOCOMOTION: WHEELCHAIR: LOCOMOTION: WHEELCHAIR - STEP 1: Does the patient need help to go 150 feet in a wheelchair? No. LOCOMOTION: WHEELCHAIR - SCORE: 6-LORI LOCOMOTION: STAIRS: LOCOMOTION: STAIRS - STEP 1: Does the patient need help to go up and down 12 to 14 stairs? Yes. LOCOMOTION: STAIRS - STEP 2: How much assistance does the patient need from the helper to go a minimum of 12 to 14 stairs? Only santoyo pervision, cuing, or coaxing LOCOMOTION: STAIRS - SCORE: 5-SUP COMPREHENSION: COMPREHENSION - SCORE: 0-UNK EXPRESSION EXPRESSION - SCORE: 0-UNK SOCIAL INTERACTION: SOCIAL INTERACTION - SCORE: 0-UNK PROBLEM SOLVING: PROBLEM SOLVING - SCORE: 0-UNK MEMORY: MEMORY - SCORE: 0-UNK SIGNATURE PANEL: The following modified sections: Transfers: Bed, Chair, Wheelchair - Score, Transfers: Toilet - Score , Locomotion: Walk - Score, Locomotion: Wheelchair - Score, Locomotion: Stairs - Score were [clint chiang] signed by Wily Denney PTA on ThuOct 22 2018 15:01:47 GMT-0500 (Central Daylight Time)
[2018-10-22] MEDS: SENOSIDES 8.6 MG TAB PO SCH (20:54)
[2018-10-22] MEDS: ATORVASTATIN 10 MG TAB PO SCH (20:54)
--- NOTE | 2018-10-23 02:38 | FAST ---
SHIFT START DATE/TIME: 10/22/2018 19:00 (CDT) SHIFT END DATE/TIME: 10/23/2018 07:00 (CDT) NAME ANTELMO GORDILLO DATE OF : 1945 DATE OF ADMISSION: 10/15/2018 16:10 (CDT) PHONE: AGE: 72 N# [id number] GENDER: Female ENCOUNTER PHYSICIAN: Dr. Edmar Garrett M.D. ADMISSION DIAGNOSIS: - Orthopaedic Disorders 08 - Unilateral Hip Replacement (08.51) Osteoarthritis of right hip. EATING: Activity did not occur on this shift EATING - SCORE: 0-UNK GROOMING: Oral care Wash, rinse, and dry face Wash, rinse, and dry hands GROOMING - STEP 1: Does the patient require the assistance of a person or device, or need extra time when grooming? Yes. GROOMING - STEP 2: Does the patient require the assistance of a helper? Yes. GROOMING - STEP 3: How much assistance does the patient require from the helper? Only prior equipment preparation/set up from the helper GROOMING - SCORE: 5-SUP BATHING: Activity did not occur on this shift BATHING - SCORE: 0-UNK DRESSING - UPPER BODY: Patient is not dressing in public clothing ARTICLES SCORE Total number of steps: 0 DRESSING - UPPER BODY - SCORE: 0-UNK DRESSING - LOWER BODY: Patient is not dressing in public clothing ARTICLES SCORE Total number of steps: 0 DRESSING - LOWER BODY - SCORE: 0-UNK TOILETING: TOILETING - STEP 1: Does the patient require the assistance of a person or device, or need extra time with toileting? Yes . TOILETING - STEP 2: Does the patient require the assistance of a helper? Yes. TOILETING - STEP 3: How much assistance does the patient require from the helper? Hands-on assistance from the helper TOILETING - STEP 4: Of the 3 tasks: 1) Adjusting clothing prior to use, 2) Cleansing of perineal area, 3) Adjusting clot jennifer after use; How many tasks does the patient perform WITHOUT assistance of the helper? Three tasks with steadying assistance from the helper TOILETING - SCORE: 4-MIN BLADDER MANAGEMENT: BLADDER MANAGEMENT - STEP 1: Does the patient control the bladder completely and intentionally without equipment or devices or med ications, and is always continent? No. BLADDER MANAGEMENT - STEP 2: Does the patient require the assistance of a helper? Yes. BLADDER MANAGEMENT - STEP 3: How much assistance does the patient require from the helper? Patient requires contact assistance fro m the helper BLADDER MANAGEMENT - STEP 4: How much contact assistance does the patient require from the helper? Patient requires minimal assist ance to maintain an external device - by positioning, and the patient performs 75% or more of bladder management tasks, while the helper provides less than 25% of the assistance to position patient on / off bedpan BLADDER MANAGEMENT - SCORE: 4-MIN BOWEL MANAGEMENT: Activity did not occur on this shift BOWEL MANAGEMENT - SCORE: 7-IND TRANSFERS: BED, CHAIR, WHEELCHAIR: TRANSFERS: BED, CHAIR, WHEELCHAIR - STEP 1: Does the patient require assistance of a person or device, or need extra time with bed, chair, or whe elchair transfers? Yes. TRANSFERS: BED, CHAIR, WHEELCHAIR - STEP 2: Does the patient require the assistance of a helper? Yes. TRANSFERS: BED, CHAIR, WHEELCHAIR - STEP 3: How much assistance does the patient require from the helper? Steadying/guiding assistance TRANSFERS: BED, CHAIR, WHEELCHAIR - SCORE: 4-MIN TRANSFERS: TOILET: TRANSFERS: TOILET - STEP 1: Does the patient require the assistance of a person or device, or need extra time with toilet transfe rs? Yes. TRANSFERS: TOILET - STEP 2: Does the patient require the assistance of a helper? Yes. TRANSFERS: TOILET - STEP 3: How much assistance does the patient require from the helper? Only supervision, cuing, coaxing, OR he lp to set out transfer equipment or to lock brakes and/or lift foot rests TRANSFERS: TOILET - SCORE: 5-SUP TRANSFERS: SHOWER: Activity did not occur on this shift TRANSFERS: SHOWER - SCORE: 0-UNK TRANSFERS: TUB: Activity did not occur on this shift TRANSFERS: TUB - SCORE: 0-UNK LOCOMOTION: WALK: Activity did not occur on this shift LOCOMOTION: WALK - SCORE: 0-UNK LOCOMOTION: WHEELCHAIR: Activity did not occur on this shift LOCOMOTION: WHEELCHAIR - SCORE: 0-UNK COMPREHENSION: COMPREHENSION: TYPE: Both COMPREHENSION - STEP 1: Does the patient require help from a person or device, or need extra time to understand complex and a bstract ideas (such as current events, finances, discharge planning, medical issues, relationships, e tc)? Yes. COMPREHENSION - STEP 2: Does the patient require help to understand questions or statements about basic needs or ideas (such as hunger, thirst, sleep, safety, daily schedule, room location, or discomfort) half or more of the t siddharth? No. COMPREHENSION - STEP 3: How often does the patient need help to understand directions and conversation about basic needs? 10% - 24% of the time COMPREHENSION - SCORE: 4-MIN EXPRESSION EXPRESSION: TYPE: Both EXPRESSION - STEP 1: Does the patient require help from a person or device, or need extra time expressing complex and abst ract ideas (such as current events, finances, discharge planning, medical issues, relationships, etc) ? No. EXPRESSION - STEP 2: Does the patient need extra time, require an assistive device (such as augmentive communication syste m or a communication board), OR does s/he have mild difficulty expressing complex and abstract ideas (including mild dysarthria or mild word-find problems)? Yes. EXPRESSION - SCORE: 6-LORI SOCIAL INTERACTION: SOCIAL INTERACTION - STEP 1: Does the patient require a helper to interact with others in social and therapeutic situations? No. SOCIAL INTERACTION - STEP 2: Does the patient need extra time in social situations, OR does s/he interact with staff, other patien ts, and family members ONLY in structured environments, OR does s/he require medication for social in teraction? Yes, patient needs extra time SOCIAL INTERACTION - SCORE: 6-LORI PROBLEM SOLVING: PROBLEM SOLVING - STEP 1: Does the patient need help from a person or device, or need extra time to solve complex problems such as managing a checking account or confronting interpersonal problems? Yes. PROBLEM SOLVING - STEP 2: Does the patient solve basic routine problems half or more of the time? Yes. PROBLEM SOLVING - STEP 3: How often does the patient need help to solve basic routine problems? 10%-24% of the time PROBLEM SOLVING - SCORE: 4-MIN MEMORY: MEMORY - STEP 1: Does the patient need help from a person or device, or need extra time to remember frequently encount ered people, daily routines, and executing requests? No. MEMORY - STEP 2: Does the patient have slight difficulty recognizing frequently encountered people, daily routines, or executing requests without the need for repetition or using self-initiated or environmental cues to remember? Yes. MEMORY - SCORE: 6-LORI
[2018-10-23] MEDS: CARVEDILOL 25 MG TAB PO SCH ×2 (05:05→17:01)
[2018-10-23 05:27] VITALS: BMI 19.8
[2018-10-23] MEDS: INSULIN -REGULAR HUMAN 50 UNIT/0.5 ML ML SQ SCH ×4 (07:30→21:00)
[2018-10-23] MEDS: METHOCARBAMOL 500 MG TAB PO SCH ×2 (07:58→21:16)
[2018-10-23] MEDS: HYDROCODONE/APAP 10/325 TAB PO PRN ×3 (07:59→17:42)
[2018-10-23] MEDS: CRANBERRY FRUIT EXTRACT 200 MG CAP PO SCH ×2 (08:00→21:16)
[2018-10-23] MEDS: POTASSIUM CL SA 10 MEQ TAB PO SCH (08:01)
[2018-10-23] MEDS: BUSPIRONE HCL 5 MG TABLET PO SCH ×2 (08:01→21:17)
[2018-10-23] MEDS: FLUOXETINE 20 MG CAP PO SCH (08:01)
[2018-10-23] MEDS: FE SULF/FA/VIT B COMP & C TAB PO SCH (08:01)
[2018-10-23] MEDS: glipiZIDE 5 MG TAB PO SCH ×3 (08:02→17:39)
[2018-10-23] MEDS: SYMBICORT 160 MCG IH SCH ×2 (08:02→21:13)
[2018-10-23] MEDS: FENOFIBRATE 160 MG TAB PO SCH (08:02)
[2018-10-23] MEDS: DIGOXIN 0.125 MG TABLET PO SCH (08:02)
[2018-10-23] MEDS: PROMOD 30 ML DOSE PO SCH ×2 (08:02→21:18)
[2018-10-23] MEDS: LISINOPRIL 20 MG TAB PO SCH (08:03)
[2018-10-23] MEDS: LIPASE/PROTEASE/AMYLASE CAP PO SCH ×3 (08:03→21:18)
[2018-10-23] MEDS: FUROSEMIDE 40 MG TABLET PO SCH (08:03)
[2018-10-23] MEDS: FERROUS SULFATE 325 MG TAB PO SCH (08:04)
[2018-10-23] MEDS: MECLIZINE HCL 12.5 MG TAB PO SCH ×3 (08:04→21:17)
[2018-10-23] MEDS: APIXABAN 2.5 MG TABLET PO SCH ×2 (08:04→21:18)
[2018-10-23] MEDS: ASPIRIN 81 MG CHEWABLE TABLET PO SCH (08:04)
[2018-10-23] MEDS: GABAPENTIN 300 MG CAP PO SCH ×2 (08:04→21:17)
[2018-10-23] MEDS: LIDOCAINE 5% PATCH TOP SCH (10:10)
--- NOTE | 2018-10-23 13:38 | FAST ---
ENCOUNTER DATE AND TIME: 10/23/2018 08:00 (CDT) NAME ANTELMO GORDILLO DATE OF : 1945 DATE OF ADMISSION: 10/15/2018 16:10 (CDT) PHONE: AGE: 72 SSN# [id number] GENDER: Female ENCOUNTER PHYSICIAN: Dr. Edmar Garrett M.D. ADMISSION DIAGNOSIS: - Orthopaedic Disorders 08 - Unilateral Hip Replacement (08.51) Osteoarthritis of right hip. EATING: Activity did not occur on this shift EATING - SCORE: 0-UNK GROOMING: Comb/brush hair Wash, rinse, and dry face Wash, rinse, and dry hands GROOMING - STEP 1: Does the patient require the assistance of a person or device, or need extra time when grooming? No. GROOMING - SCORE: 7-IND BATHING: Abdomen Buttocks Chest Left arm Left lower leg and foot Left upper leg Perineal area Right arm Right lower leg and foot Right upper leg BATHING - STEP 1: Does the patient require the assistance of a person or device, or need extra time when bathing? Yes. BATHING - STEP 2: Does the patient require the assistance of a helper? No. The patient only requires an assistive devic e such as a bath gorge, OR the patient takes more than reasonable time to bathe, OR there is a concern for safety such as regulating water temperature as the patient bathes. BATHING - SCORE: 6-LORI DRESSING - UPPER BODY: T-shirt/pullover shirt (four steps) ARTICLES SCORE Total number of steps: 4 DRESSING - UPPER BODY - STEP 1: Does the patient require help from a person or device, or need extra time when dressing above the shaw st? No. DRESSING - UPPER BODY - SCORE: 7-IND DRESSING - LOWER BODY: Elastic waist pants (three steps) Sock - Left foot (one step) Sock - Right foot (one step) Underwear (three steps) ARTICLES SCORE Total number of steps: 8 DRESSING - LOWER BODY - STEP 1: Does the patient require help from a person or device, or need extra time when dressing below the shaw st? Yes. DRESSING - LOWER BODY - STEP 2: Does the patient require the assistance of a helper? No. Patient requires an assistive device such as a county records management officer. OR s/he takes more than reasonable time as s/he dresses the lower body, OR there is a con cern for safety when s/he dresses the lower body DRESSING - LOWER BODY - SCORE: 6-LORI TOILETING: Activity did not occur on this shift TOILETING - SCORE: 0-UNK BLADDER MANAGEMENT: Activity did not occur on this shift BLADDER MANAGEMENT - SCORE: 7-IND BOWEL MANAGEMENT: Activity did not occur on this shift BOWEL MANAGEMENT - SCORE: 7-IND TRANSFERS: BED, CHAIR, WHEELCHAIR: Activity did not occur on this shift TRANSFERS: BED, CHAIR, WHEELCHAIR - SCORE: 0-UNK TRANSFERS: TOILET: Activity did not occur on this shift TRANSFERS: TOILET - SCORE: 0-UNK TRANSFERS: SHOWER: Activity did not occur on this shift TRANSFERS: SHOWER - SCORE: 0-UNK TRANSFERS: TUB: TRANSFERS: TUB - STEP 1: Does the patient require the assistance of a person or device, or need extra time with tub transfers? Yes. TRANSFERS: TUB - STEP 2: Does the patient require the assistance of a helper? No. Only requires the assistance of an assistive device, OR takes more than reasonable time, OR there is a concern for safety when s/he performs tub transfers TRANSFERS: TUB - SCORE: 6-LORI LOCOMOTION: WALK: Activity did not occur on this shift LOCOMOTION: WALK - SCORE: 0-UNK LOCOMOTION: WHEELCHAIR: Activity did not occur on this shift LOCOMOTION: WHEELCHAIR - SCORE: 0-UNK LOCOMOTION: STAIRS: Activity did not occur on this shift LOCOMOTION: STAIRS - SCORE: 0-UNK COMPREHENSION: COMPREHENSION: TYPE: Visual COMPREHENSION - STEP 1: Does the patient require help from a person or device, or need extra time to understand complex and a bstract ideas (such as current events, finances, discharge planning, medical issues, relationships, e tc)? No. COMPREHENSION - STEP 2: Does the patient need extra time, require an assistive device (such as glasses for visual comprehensi on or a hearing aid for auditory comprehension) or does s/he have mild difficulty understanding compl ex and abstract information? Yes. COMPREHENSION - SCORE: 6-LORI EXPRESSION EXPRESSION: TYPE: Non-Vocal EXPRESSION - STEP 1: Does the patient require help from a person or device, or need extra time expressing complex and abst ract ideas (such as current events, finances, discharge planning, medical issues, relationships, etc) ? No. EXPRESSION - STEP 2: Does the patient need extra time, require an assistive device (such as augmentive communication syste m or a communication board), OR does s/he have mild difficulty expressing complex and abstract ideas (including mild dysarthria or mild word-find problems)? No. EXPRESSION - SCORE: 7-IND SOCIAL INTERACTION: SOCIAL INTERACTION - STEP 1: Does the patient require a helper to interact with others in social and therapeutic situations? No. SOCIAL INTERACTION - STEP 2: Does the patient need extra time in social situations, OR does s/he interact with staff, other patien ts, and family members ONLY in structured environments, OR does s/he require medication for social in teraction? No. SOCIAL INTERACTION - SCORE: 7-IND PROBLEM SOLVING: PROBLEM SOLVING - STEP 1: Does the patient need help from a person or device, or need extra time to solve complex problems such as managing a checking account or confronting interpersonal problems? No. PROBLEM SOLVING - STEP 2: Does the patient require extra time to make decisions or solve problems, OR does s/he have slight dif ficulty reading, initiating, or self-correcting in unfamiliar situations? No. PROBLEM SOLVING - SCORE: 7-IND MEMORY: MEMORY - STEP 1: Does the patient need help from a person or device, or need extra time to remember frequently encount ered people, daily routines, and executing requests? No. MEMORY - STEP 2: Does the patient have slight difficulty recognizing frequently encountered people, daily routines, or executing requests without the need for repetition or using self-initiated or environmental cues to remember? No. MEMORY - SCORE: 7-IND SIGNATURE PANEL: The following modified sections: Eating - Score, Grooming - Score, Bathing - Score, Dressing - Upper Body - Score, Dressing - Lower Body - Score, Toileting - Score, Transfers: Bed, Chair, Wheelchair - S core, Transfers: Toilet - Score, Transfers: Shower - Score, Transfers: Tub - Score, Comprehension - S core, Expression - Score, Social Interaction - Score, Problem Solving - Score, Memory - Score were [e lectronically] signed by FRED Patterson on Sat Oct 23 2018 13:38:05 T-0500 (Formerly [facility])
[2018-10-23] MEDS: TRAMADOL HCL 50 MG TAB PO PRN (16:00)
[2018-10-23 16:51] VITALS: O2SAT 94
[2018-10-23] MEDS: ATORVASTATIN 10 MG TAB PO SCH (21:18)
[2018-10-23] MEDS: SENOSIDES 8.6 MG TAB PO SCH (21:25)
--- NOTE | 2018-10-24 00:49 | FAST ---
SHIFT START DATE/TIME: 10/23/2018 19:00 (CDT) SHIFT END DATE/TIME: 10/24/2018 07:00 (CDT) NAME ANTELMO GORDILLO DATE OF : 1945 DATE OF ADMISSION: 10/15/2018 16:10 (CDT) PHONE: AGE: 72 N# [id number] GENDER: Female ENCOUNTER PHYSICIAN: Dr. Edmar Garrett M.D. ADMISSION DIAGNOSIS: - Orthopaedic Disorders 08 - Unilateral Hip Replacement (08.51) Osteoarthritis of right hip. EATING: Activity did not occur on this shift EATING - SCORE: 0-UNK GROOMING: Wash, rinse, and dry hands GROOMING - STEP 1: Does the patient require the assistance of a person or device, or need extra time when grooming? Yes. GROOMING - STEP 2: Does the patient require the assistance of a helper? No. The patient only requires an assistive devic e, OR takes more than reasonable time to groom, OR there is a concern for safety as the patient groom s GROOMING - SCORE: 6-LORI BATHING: Activity did not occur on this shift BATHING - SCORE: 0-UNK DRESSING - UPPER BODY: Patient is not dressing in public clothing ARTICLES SCORE Total number of steps: 0 DRESSING - UPPER BODY - SCORE: 0-UNK DRESSING - LOWER BODY: Patient is not dressing in public clothing ARTICLES SCORE Total number of steps: 0 DRESSING - LOWER BODY - SCORE: 0-UNK TOILETING: TOILETING - STEP 1: Does the patient require the assistance of a person or device, or need extra time with toileting? Yes . TOILETING - STEP 2: Does the patient require the assistance of a helper? Yes. TOILETING - STEP 3: How much assistance does the patient require from the helper? Hands-on assistance from the helper TOILETING - STEP 4: Of the 3 tasks: 1) Adjusting clothing prior to use, 2) Cleansing of perineal area, 3) Adjusting clot jennifer after use; How many tasks does the patient perform WITHOUT assistance of the helper? Three tasks with steadying assistance from the helper TOILETING - SCORE: 4-MIN BLADDER MANAGEMENT: [place] removes incontinent device (Depends, pull ups, etc.); cleans the patient after accident / inco ntinent episode; and, applies new incontinent device. BLADDER MANAGEMENT - SCORE: 1-DEP BOWEL MANAGEMENT: BOWEL MANAGEMENT - STEP 1: Does the patient control bowels completely and intentionally without equipment devices or medications AND is always continent? No. BOWEL MANAGEMENT - STEP 2: Does the patient require the assistance of a helper? No, patient requires medication for control such as stool softeners, suppositories, laxatives, enemas, or OTC medications BOWEL MANAGEMENT - SCORE: 6-LORI TRANSFERS: BED, CHAIR, WHEELCHAIR: TRANSFERS: BED, CHAIR, WHEELCHAIR - STEP 1: Does the patient require assistance of a person or device, or need extra time with bed, chair, or whe elchair transfers? Yes. TRANSFERS: BED, CHAIR, WHEELCHAIR - STEP 2: Does the patient require the assistance of a helper? Yes. TRANSFERS: BED, CHAIR, WHEELCHAIR - STEP 3: How much assistance does the patient require from the helper? Steadying/guiding assistance TRANSFERS: BED, CHAIR, WHEELCHAIR - SCORE: 4-MIN TRANSFERS: TOILET: TRANSFERS: TOILET - STEP 1: Does the patient require the assistance of a person or device, or need extra time with toilet transfe rs? Yes. TRANSFERS: TOILET - STEP 2: Does the patient require the assistance of a helper? Yes. TRANSFERS: TOILET - STEP 3: How much assistance does the patient require from the helper? Only supervision, cuing, coaxing, OR he lp to set out transfer equipment or to lock brakes and/or lift foot rests TRANSFERS: TOILET - SCORE: 5-SUP TRANSFERS: SHOWER: Activity did not occur on this shift TRANSFERS: SHOWER - SCORE: 0-UNK TRANSFERS: TUB: Activity did not occur on this shift TRANSFERS: TUB - SCORE: 0-UNK LOCOMOTION: WALK: Activity did not occur on this shift LOCOMOTION: WALK - SCORE: 0-UNK LOCOMOTION: WHEELCHAIR: Activity did not occur on this shift LOCOMOTION: WHEELCHAIR - SCORE: 0-UNK COMPREHENSION: COMPREHENSION: TYPE: Both COMPREHENSION - STEP 1: Does the patient require help from a person or device, or need extra time to understand complex and a bstract ideas (such as current events, finances, discharge planning, medical issues, relationships, e tc)? Yes. COMPREHENSION - STEP 2: Does the patient require help to understand questions or statements about basic needs or ideas (such as hunger, thirst, sleep, safety, daily schedule, room location, or discomfort) half or more of the t siddharth? No. COMPREHENSION - STEP 3: How often does the patient need help to understand directions and conversation about basic needs? 10% - 24% of the time COMPREHENSION - SCORE: 4-MIN EXPRESSION EXPRESSION: TYPE: Both EXPRESSION - STEP 1: Does the patient require help from a person or device, or need extra time expressing complex and abst ract ideas (such as current events, finances, discharge planning, medical issues, relationships, etc) ? No. EXPRESSION - STEP 2: Does the patient need extra time, require an assistive device (such as augmentive communication syste m or a communication board), OR does s/he have mild difficulty expressing complex and abstract ideas (including mild dysarthria or mild word-find problems)? No. EXPRESSION - SCORE: 7-IND SOCIAL INTERACTION: SOCIAL INTERACTION - STEP 1: Does the patient require a helper to interact with others in social and therapeutic situations? No. SOCIAL INTERACTION - STEP 2: Does the patient need extra time in social situations, OR does s/he interact with staff, other patien ts, and family members ONLY in structured environments, OR does s/he require medication for social in teraction? Yes, patient requires medication for social interaction SOCIAL INTERACTION - SCORE: 6-LORI PROBLEM SOLVING: PROBLEM SOLVING - STEP 1: Does the patient need help from a person or device, or need extra time to solve complex problems such as managing a checking account or confronting interpersonal problems? Yes. PROBLEM SOLVING - STEP 2: Does the patient solve basic routine problems half or more of the time? Yes. PROBLEM SOLVING - STEP 3: How often does the patient need help to solve basic routine problems? Less than 10% of the time PROBLEM SOLVING - SCORE: 5-SUP MEMORY: MEMORY - STEP 1: Does the patient need help from a person or device, or need extra time to remember frequently encount ered people, daily routines, and executing requests? No. MEMORY - STEP 2: Does the patient have slight difficulty recognizing frequently encountered people, daily routines, or executing requests without the need for repetition or using self-initiated or environmental cues to remember? Yes. MEMORY - SCORE: 6-LORI SIGNATURE PANEL: The following modified sections: Eating - Score, Grooming - Score, Dressing - Upper Body - Score, Ezio ssing - Lower Body - Score, Toileting - Score, Bladder Management - Score, Bowel Management - Score, Transfers: Bed, Chair, Wheelchair - Score, Transfers: Toilet - Score, Transfers: Shower - Score, [place] sfers: Tub - Score, Locomotion: Walk - Score, Locomotion: Wheelchair - Score, Comprehension - Score, Expression - Score, Social Interaction - Score, Problem Solving - Score, Memory - Score were [electro nically] signed by Blanca Hartmann CNA on Sun Oct 24 2018 00:49:31 GMT-0500 (Central Daylight Time)
[2018-10-24 01:33] VITALS: TEMP 97.6
[2018-10-24] MEDS: CARVEDILOL 25 MG TAB PO SCH (05:10)
[2018-10-24 07:10] VITALS: BP 146/56
[2018-10-24] MEDS: INSULIN -REGULAR HUMAN 50 UNIT/0.5 ML ML SQ SCH ×2 (07:30→11:30)
[2018-10-24] MEDS: FE SULF/FA/VIT B COMP & C TAB PO SCH (08:00)
[2018-10-24] MEDS: SYMBICORT 160 MCG IH SCH (08:00)
[2018-10-24] MEDS: BUSPIRONE HCL 5 MG TABLET PO SCH (08:00)
[2018-10-24] MEDS: MECLIZINE HCL 12.5 MG TAB PO SCH (08:01)
[2018-10-24] MEDS: LISINOPRIL 20 MG TAB PO SCH (08:01)
[2018-10-24] MEDS: FLUOXETINE 20 MG CAP PO SCH (08:02)
[2018-10-24] MEDS: CRANBERRY FRUIT EXTRACT 200 MG CAP PO SCH (08:02)
[2018-10-24] MEDS: LIDOCAINE 5% PATCH TOP SCH (08:02)
[2018-10-24] MEDS: glipiZIDE 5 MG TAB PO SCH (08:03)
[2018-10-24] MEDS: FERROUS SULFATE 325 MG TAB PO SCH (08:03)
[2018-10-24] MEDS: GABAPENTIN 300 MG CAP PO SCH (08:03)
[2018-10-24] MEDS: POTASSIUM CL SA 10 MEQ TAB PO SCH (08:03)
[2018-10-24] MEDS: METHOCARBAMOL 500 MG TAB PO SCH (08:04)
[2018-10-24] MEDS: APIXABAN 2.5 MG TABLET PO SCH (08:04)
[2018-10-24] MEDS: DIGOXIN 0.125 MG TABLET PO SCH (08:05)
[2018-10-24] MEDS: LIPASE/PROTEASE/AMYLASE CAP PO SCH (08:05)
[2018-10-24] MEDS: FENOFIBRATE 160 MG TAB PO SCH (08:05)
[2018-10-24] MEDS: FUROSEMIDE 40 MG TABLET PO SCH (08:06)
[2018-10-24] MEDS: ASPIRIN 81 MG CHEWABLE TABLET PO SCH (08:06)
[2018-10-24] MEDS: PROMOD 30 ML DOSE PO SCH (08:07)
[2018-10-24] MEDS: TRAMADOL HCL 50 MG TAB PO PRN (10:30)
[2018-10-24] MEDS: HYDROCODONE/APAP 10/325 TAB PO PRN (11:34)
== END 2018-10-24 12:00 | disposition home health service (06) | DRG 554 ==
LOC: 5TH 16:10
PROVIDERS: ADMIT Psychiatry & Neurology Neurology with Special Qualifications in Child Neurology; ATTEND Psychiatry & Neurology Neurology with Special Qualifications in Child Neurology
DX: M16.11 Unilateral primary osteoarthritis, right hip (principal); J44.9 Chronic obstructive pulmonary disease, unspecified; E11.9 Type 2 diabetes mellitus without complications; I11.0 Hypertensive heart disease with heart failure
CPT/HCPCS: 36415; 73700; 80048; 81001; 82040; 82962; 83735; 84134; 85025; 87086; 87088; 97110; 97116; 97161; 97530; 97542